=== PATIENT | female | born 1955 | race Caucasian/White ===

== ENCOUNTER 2016-09-11 14:59 | Emergency (ER) | payer MEDICARE, MEDICAID ==
[2016-09-11] MEDS ORDERED: ASPIRIN 81 MG TABLET, CHEWABLE PO ONE (15:27)
--- NOTE | 2016-09-11 15:29 | ER Document Report ---
ED Medical Screen (RME) - General Stated Complaint: LEG SWELLING Mode of Arrival: Wheelchair Information source: Patient Notes: c/o chronic left leg pain and swelling that worsened 3 days ago. She feels like she is retaining a lot of fluids. Associated symptoms dizziness, blurred vision with associated chest pain and left shoulder. PMHx includes HTN, DM, CVA. History of smoking. TRAVEL OUTSIDE OF THE [place] IN LAST 30 DAYS: No - Related Data Allergies/Adverse Reactions: morphine [Morphine] Allergy (Verified 09/11/16 15:24) Plastic tape Allergy (Uncoded 09/11/16 15:24) Past Medical History - Past Medical History Cardiac Medical History: Reports: Hx DVT, Hx Hypercholesterolemia, Hx Hypertension Denies: Hx Heart Attack Pulmonary Medical History: Reports: Hx Asthma, Hx Bronchitis, Hx COPD, Hx Pneumonia Denies: Hx Tuberculosis Neurological Medical History: Reports: Hx Cerebrovascular Accident - CVA 2012 L sided-weakness. Denies: Hx Seizures Endocrine Medical History: Reports: Hx Diabetes Mellitus Type 2 Renal/ Medical History: Reports: Hx Kidney Stones. Denies: Hx End Stage Renal Disease, Hx Peritoneal Dialysis Malignancy Medical History: Reports: Hx Ovarian Cancer Musculoskeltal Medical History: Denies Hx Arthritis, Reports Hx Fibromyalgia Psychiatric Medical History: Denies: Hx Depression Past Surgical History: Reports: Hx Hysterectomy, Hx Kidney (Renal Surgery), Hx Orthopedic Surgery - carpal tunnel, right medial nerve reconstruction, Hx Tubal Ligation. Denies: Hx Appendectomy, Hx Bowel Surgery, Hx Section, Hx Cholecystectomy, Hx Coronary Artery Bypass Graft, Hx Gastric Bypass Surgery, Hx Herniorrhaphy, Hx Mastectomy, Hx Pacemaker, Hx Tonsillectomy - Immunizations Hx Diphtheria, Pertussis, Tetanus Vaccination: Yes Physical Exam - Vital signs Vitals: Temp Pulse Resp BP 97.9 F 82 20 189/81 H 09/11/16 15:09/11/16 15:09/11/16 15:09 09/11/16 15:09 Course - Vital Signs Vital signs: Temp Pulse Resp BP Pulse Ox 97.9 F 82 20 189/81 H 09/11/16 15:09 09/11/16 15:09 09/11/16 15:09 09/11/16 15:09
[2016-09-11 15:51] LABS: ABSOLUTE EOSINOPHILS # (AUTO) 0.1 10^3/uL (0.0-0.6); ABSOLUTE LYMPHOCYTES (AUTO) 2.7 10^3/uL (0.5-4.7); ABSOLUTE MONOCYTES (AUTO) 0.5 10^3/uL (0.1-1.4); ABSOLUTE NEUT (AUTO) 4.5 10^3/uL (1.7-8.2); BASOPHILS % (AUTO) 0.5 % (0-2); EOSINOPHILS % (AUTO) 1.6 % (0-6); HEMATOCRIT 42.6 % (36.0-47.0); HEMOGLOBIN 14.4 g/dL (12.0-15.5); HGB HCT DIFFERENCE 0.6; LYMPHOCYTES % (AUTO) 34.1 % (13-45); MEAN CORPUSCULAR HEMOGLOBIN 32.9 pg (27.0-33.4); MEAN CORPUSCULAR HGB CONC 33.8 g/dL (32.0-36.0); MEAN CORPUSCULAR VOLUME 97 fl (80-97); MONOCYTES % (AUTO) 5.9 % (3-13); RED BLOOD COUNT 4.38 10^6/uL (3.72-5.28); RED CELL DISTRIBUTION WIDTH 14.3 % (11.5-14.0); SEGMENTED NEUTROPHILS % (AUTO) 57.9 % (42-78); WHITE BLOOD COUNT 7.8 10^3/uL (4.0-10.5)
[2016-09-11 16:09] LABS: ALANINE AMINOTRANSFERASE 41 U/L (9-52); ALBUMIN 3.7 g/dL (3.5-5.0); ALKALINE PHOSPHATASE 106 U/L (38-126); ANION GAP 9 (5-19); ASPARTATE AMINO TRANSFERASE 28 U/L (14-36); BILIRUBIN,TOTAL 0.4 mg/dL (0.2-1.3); BLOOD UREA NITROGEN 22 mg/dL (7-20); CARBON DIOXIDE 24 mmol/L (22-30); CHLORIDE 109 mmol/L (98-107); CREATININE RESULT 1.22 mg/dL (0.52-1.25); GLUCOSE 103 mg/dL (75-110); POTASSIUM 4.5 mmol/L (3.6-5.0); SODIUM 141.6 mmol/L (137-145); TOTAL PROTEIN 6.3 g/dL (6.3-8.2)
[2016-09-11 16:21] LABS: TROPONIN I 0.013 ng/mL
--- NOTE | 2016-09-11 19:38 | ER Document Report ---
ED General - General Chief Complaint: Leg Swelling Stated Complaint: LEG SWELLING Mode of Arrival: Wheelchair Notes: Patient is a 61-year-old female past medical history of ovarian cancer status post hysterectomy with associated chronic lymphadenopathy thereafter who presents with concerns of ongoing lower extremity edema and pain. States that this is unchanged from the past but that has been less responsive turgor normal approach of applying her SCDs at home. Not see her primary care doctor about her concerns. Describes the pain in the lower extremities being equal in both legs, constant burning. Nothing improves or worsens the pain. Denies any associated weakness, numbness, chest pain or shortness of breath. TRAVEL OUTSIDE OF THE [place] IN LAST 30 DAYS: No - Related Data Allergies/Adverse Reactions: morphine [Morphine] Allergy (Verified 09/11/16 15:24) Plastic tape Allergy (Uncoded 09/11/16 15:24) Past Medical History - General Information source: Patient - Social History Smoking Status: Current Every Day Smoker Chew tobacco use (# tins/day): No Frequency of alcohol use: None Drug Abuse: None Lives with: Spouse/Significant other Family History: Reviewed & Not Pertinent Patient has suicidal ideation: No Patient has homicidal ideation: No - Past Medical History Cardiac Medical History: Reports: Hx DVT, Hx Hypercholesterolemia, Hx Hypertension Denies: Hx Heart Attack Pulmonary Medical History: Reports: Hx Asthma, Hx Bronchitis, Hx COPD, Hx Pneumonia Denies: Hx Tuberculosis Neurological Medical History: Reports: Hx Cerebrovascular Accident - CVA 2012 L sided-weakness. Denies: Hx Seizures Endocrine Medical History: Reports: Hx Diabetes Mellitus Type 2 Renal/ Medical History: Reports: Hx Kidney Stones. Denies: Hx End Stage Renal Disease, Hx Peritoneal Dialysis Malignancy Medical History: Reports: Hx Ovarian Cancer Musculoskeltal Medical History: Denies Hx Arthritis, Reports Hx Fibromyalgia Psychiatric Medical History: Denies: Hx Depression Past Surgical History: Reports: Hx Hysterectomy, Hx Kidney (Renal Surgery), Hx Orthopedic Surgery - carpal tunnel, right medial nerve reconstruction, Hx Tubal Ligation. Denies: Hx Appendectomy, Hx Bowel Surgery, Hx Section, Hx Cholecystectomy, Hx Coronary Artery Bypass Graft, Hx Gastric Bypass Surgery, Hx Herniorrhaphy, Hx Mastectomy, Hx Pacemaker, Hx Tonsillectomy - Immunizations Hx Diphtheria, Pertussis, Tetanus Vaccination: Yes Hx Pneumococcal Vaccination: 03/25/12 Review of Systems - Review of Systems Notes: Constitutional: Negative for fever. HENT: Negative for sore throat. Eyes: Negative for visual changes. Cardiovascular: Negative for chest pain. Respiratory: Negative for shortness of breath. Gastrointestinal: Negative for abdominal pain, vomiting or diarrhea. Genitourinary: Negative for dysuria. Musculoskeletal: Negative for back pain. Positive for bilateral lower extremity edema and lymphedema Skin: Negative for rash. Neurological: Negative for headaches, weakness or numbness. 10 point ROS negative except as marked above and in HPI. Physical Exam - Vital signs Vitals: Temp Pulse Resp BP 97.9 F 82 20 189/81 H 09/11/16 15:09 09/11/16 15:09 09/11/16 15:09 09/11/16 15:09 Interpretation: Hypertensive Notes: PHYSICAL EXAMINATION: GENERAL: Well-appearing, well-nourished and in no acute distress. HEAD: Atraumatic, normocephalic. EYES: Pupils equal round and reactive to light, extraocular movements intact, sclera anicteric, conjunctiva are normal. ENT: nares patent, oropharynx clear without exudates. Moist mucous membranes. NECK: Normal range of motion, supple without lymphadenopathy LUNGS: Breath sounds clear to auscultation bilaterally and equal. No wheezes rales or rhonchi. HEART: Regular rate and rhythm without murmurs ABDOMEN: Soft, nontender, normoactive bowel sounds. No guarding, no rebound. No masses appreciated. EXTREMITIES: Normal range of motion, no pitting or edema. No cyanosis. NEUROLOGICAL: No focal neurological deficits. Moves all extremities spontaneously and on command. PSYCH: Normal mood, normal affect. SKIN: Warm, Dry, normal turgor, changes in bilateral lower extremities consistent with lymphedema Course - Re-evaluation Re-evalutation: 09/11/16 19:38 Patient presents with findings consistent with chronic lymphedema of the bilateral lower extremities. She does not have compression stockings at home. She does have SCDs however which she's been told she can only use one hour a day. I do not see a reason for this and have instructed her to begin using them as often is able to try to reduce the amount of swelling in the legs. Patient is otherwise well in appearance, vitals within exception of hypertension are within normal limits and this is patient's baseline. Her labs otherwise unremarkable. Chest x-ray was without evidence of pulmonary edema. I do not suspect any acute life-threatening pathology at this time based on exam and history and encouraged to follow closely with her primary care physician.At this time will discharge with return precautions and follow- up recommendations. Verbal discharge instructions given a the bedside and opportunity for questions given. Medication warnings reviewed. Patient is in agreement with this plan and has verbalized understanding of return precautions and the need for primary care follow-up in the next 24-72 hours. - Vital Signs Vital signs: Temp Pulse Resp BP Pulse Ox 97.7 F 80 18 171/76 H 97 09/11/16 20:22 09/11/16 20:22 09/11/16 20:22 09/11/16 20:22 09/11/16 20:22 - Laboratory Result Diagrams: 09/11/16 15:40 09/11/16 15:40 Laboratory results interpreted by me: 09/11/16 09/11/16 09/11/16 15:40 15:40 15:40 RDW 14.3 H Chloride 109 H BUN 22 H Est GFR ( Amer) 54 L Est GFR (Non-Af Amer) 45 L NT-Pro-B Natriuret Pep 1150 H - Diagnostic Test Radiology reviewed: Image reviewed, Reports reviewed Radiology results interpreted by me: 09/11/16 19:42 Chest x-ray: No acute infiltrate or pulmonary edema - EKG Interpretation by Me Additional EKG results interpreted by me: 09/11/16 19:42 Normal sinus rhythm. Rate 78. No ST elevations or depressions. QTC 438. Discharge - Discharge Clinical Impression: Lymphedema of both lower extremities Condition: Good Disposition: HOME, SELF-CARE Additional Instructions: Please begin using your compression device at home as often as you are able. Follow-up closely with you primary care physician the next 1-2 days. Return if you have shortness of breath, persistent vomiting, or greater than 101F, or any other symptoms that are concerning to you. Referrals: BECKI DIXON MD [Primary Care Provider] - Follow up as needed
[2016-09-11 20:25] VITALS: BP 171/76
--- NOTE | 2016-09-12 11:25 | EKG REPORT ---
SEVERITY:- NORMAL ECG - SINUS RHYTHM : Confirmed by: Gloria August 12-Sep-2016 11:24:38
== END 2016-09-11 20:30 | disposition home or self-care (01) ==
LOC: ER 14:59
DX: I89.0 Lymphedema, not elsewhere classified (principal); M79.89 Other specified soft tissue disorders; Z85.43 Personal history of malignant neoplasm of ovary; F17.210 Nicotine dependence, cigarettes, uncomplicated
CPT/HCPCS: 93005; 99284; 36415; 85025; 80053; 84484; 83880; 71010; 93010; A9270

== ENCOUNTER 2017-02-03 19:10 | Inpatient (IN) | payer MEDICARE, MEDICAID ==
[2017-02-03] MEDS ORDERED: NORMAL SALINE 1000 ML 500 ML IV ONE (19:40)
[2017-02-03] MEDS ORDERED: ALBUTEROL SULFATE 0.083% NEB 2.5 MG/3 ML AMPUL NEB ONE (19:40)
[2017-02-03] MEDS ORDERED: METHYLPREDNISOLONE INJ 125 MG/2 ML SDV IV ONE (19:40)
--- NOTE | 2017-02-03 19:43 | ER Document Report ---
ED General - General Stated Complaint: SHORTNESS OF BREATH Time Seen by Provider: 02/03/17 19:30 Notes: Patient is a 61-year-old female with past medical history of COPD but does not have a baseline oxygen requirement, no prior history of intubation or hospitalization for COPD who presents with 4 days of progressively worsening shortness of breath. She has been using her inhalers at home with no improvement. Any form of exertion worsens her symptoms. She has not seen a primary care doctor regarding today's concerns. She denies any associated fever , vomiting, chest pain or constitutional symptoms. TRAVEL OUTSIDE OF THE [place] IN LAST 30 DAYS: No - Related Data Allergies/Adverse Reactions: morphine [Morphine] Allergy (Verified 09/11/16 15:24) Plastic tape Allergy (Uncoded 09/11/16 15:24) Home Medications: Current Home Medications Amlodipine Besylate 5 mg PO DAILY 02/04/17 [History] Atorvastatin Calcium 40 mg PO DAILY 02/04/17 [History] Gabapentin [Gabapentin] 600 mg PO BID 02/04/17 [History] Hydroxyzine HCl 25 mg PO Q6 PRN 02/04/17 [History] Ibuprofen [Ibuprofen] 800 mg PO BID 02/04/17 [History] Pramipexole Di-HCl [Mirapex] 0.5 mg PO QHS 02/04/17 [History] Past Medical History - General Information source: Patient - Social History Smoking Status: Former Smoker Frequency of alcohol use: None Drug Abuse: None Lives with: Family Family History: Reviewed & Not Pertinent - Past Medical History Cardiac Medical History: Reports: Hx DVT, Hx Hypercholesterolemia, Hx Hypertension Denies: Hx Heart Attack Pulmonary Medical History: Reports: Hx Asthma, Hx Bronchitis, Hx COPD, Hx Pneumonia Denies: Hx Tuberculosis Neurological Medical History: Reports: Hx Cerebrovascular Accident - CVA 2011 L sided-weakness. Denies: Hx Seizures Endocrine Medical History: Reports: Hx Diabetes Mellitus Type 2 Renal/ Medical History: Reports: Hx Kidney Stones. Denies: Hx End Stage Renal Disease, Hx Peritoneal Dialysis Malignancy Medical History: Reports: Hx Ovarian Cancer Musculoskeltal Medical History: Denies Hx Arthritis, Reports Hx Fibromyalgia Psychiatric Medical History: Denies: Hx Depression Past Surgical History: Reports: Hx Hysterectomy, Hx Kidney (Renal Surgery), Hx Orthopedic Surgery - carpal tunnel, right medial nerve reconstruction, Hx Tubal Ligation. Denies: Hx Appendectomy, Hx Bowel Surgery, Hx Section, Hx Cholecystectomy, Hx Coronary Artery Bypass Graft, Hx Gastric Bypass Surgery, Hx Herniorrhaphy, Hx Mastectomy, Hx Pacemaker, Hx Tonsillectomy - Immunizations Hx Diphtheria, Pertussis, Tetanus Vaccination: Yes Hx Pneumococcal Vaccination: 03/25/12 Review of Systems - Review of Systems Notes: Constitutional: Negative for fever. HENT: Negative for sore throat. Eyes: Negative for visual changes. Cardiovascular: Negative for chest pain. Respiratory: Positive for shortness of breath. Gastrointestinal: Negative for abdominal pain, vomiting or diarrhea. Genitourinary: Negative for dysuria. Musculoskeletal: Negative for back pain. Skin: Negative for rash. Neurological: Negative for headaches, weakness or numbness. 10 point ROS negative except as marked above and in HPI. Physical Exam - Vital signs Vitals: Resp Pulse Ox 29 H 100 02/03/17 19:23 02/03/17 19:23 Interpretation: Tachycardic, Tachypneic Notes: PHYSICAL EXAMINATION: GENERAL: Appears somewhat ill, in moderate to severe respiratory distress with tachypnea initial respiratory rate of 34 breaths per minute HEAD: Atraumatic, normocephalic. EYES: Pupils equal round and reactive to light, extraocular movements intact, sclera anicteric, conjunctiva are normal. ENT: nares patent, oropharynx clear without exudates. Dry mucous membranes. NECK: Normal range of motion, supple without lymphadenopathy LUNGS: Poor air movement in all lung larios particularly at the bases bilaterally. Diffuse wheezing in the expiratory phase with prolonged expiratory phase. HEART: Regular tachycardia without murmurs ABDOMEN: Soft, nontender, normoactive bowel sounds. No guarding, no rebound. No masses appreciated. EXTREMITIES: Normal range of motion, no pitting or edema. No cyanosis. NEUROLOGICAL: No focal neurological deficits. Moves all extremities spontaneously and on command. PSYCH: Normal mood, normal affect. SKIN: Warm, Dry, normal turgor, no rashes or lesions noted. Course - Re-evaluation Re-evalutation: 02/03/17 19:42 Patient presents in moderate respiratory distress, tachypneic, rates 28-32, speaking 3 word sentences despite receiving 2 albuterol and Atrovent treatments prior to arrival. She has poor air movement in all lung larios with a prolonged expiratory phase and a severe expiratory wheeze. Immediately upon my assessment patient has been started on continuous albuterol nebulizers, IV access will be established. Solumedrol and 2 g of magnesium will be administered. Patient will require frequent reassessments as she is high risk for respiratory decompensation 02/03/17 21:34 Patient became more tachycardic on albuterol, attempted to get up to the bathroom and became severely tachypneic in the 40s, tachycardic into the 140s, continues appear severely dyspneic on assessment. She will be transitioned to BiPAP at this time. She will require admission to the hospital. Troponin at an indeterminate level, I do not suspect ACS and her EKG is noted to be normal. 02/03/17 21:46 Patient's work of breathing on BiPAP is now much improved. I discussed this case with Dr. Marley who will admit. - Vital Signs Vital signs: Temp Pulse Resp BP Pulse Ox 97.8 F 97 22 H 115/63 97 02/04/17 01:08 02/04/17 02:20 02/04/17 02:20 02/04/17 01:08 02/04/17 01:08 - Laboratory Result Diagrams: 02/03/17 20:30 02/03/17 20:30 Laboratory results interpreted by me: 02/03/17 02/03/17 02/03/17 20:30 20:30 20:30 RBC 3.70 L MCV 100 H RDW 14.4 H Plt Count 149 L Chloride 110 H Est GFR (Non-Af Amer) 51 L Glucose 119 H NT-Pro-B Natriuret Pep 1770 H - Diagnostic Test Radiology reviewed: Image reviewed, Reports reviewed Radiology results interpreted by me: 02/03/17 21:34 Chest x-ray: No acute pneumothorax or infiltrate - EKG Interpretation by Me Additional EKG results interpreted by me: 02/03/17 21:35 Sinus tachycardia. Rate 109. No ST elevations or depressions. QTC is 491. Critical Care Note - Critical Care Note Total time excluding time spent on procedures (mins): 40 Comments: Critical care time spent obtaining history from patient or surrogate, discussions with consultants, development of treatment plan with patient or surrogate, evaluation of patient's response to treatment, examination of patient , ordering and performing treatments and interventions, ordering and review of laboratory studies, re-evaluation of patient's condition, ordering and review of radiographic studies and review of old charts Discharge - Discharge Clinical Impression: Respiratory distress, COPD exacerbation Condition: Fair Disposition: ADMITTED INPATIENT Admitting Provider: Margaret Christy Donell Unit Admitted: Telemetry
--- NOTE | 2017-02-03 19:45 | RADIOLOGY REPORT (SQ) ---
EXAM DESCRIPTION: CHEST SINGLE VIEW COMPLETED DATE/TIME: 02/03/2017 7:36 pm REASON FOR STUDY: bed 16 sob COMPARISON: 09/11/2016. EXAM PARAMETERS: NUMBER OF VIEWS: One view. TECHNIQUE: Single frontal radiographic view of the chest acquired. RADIATION DOSE: NA LIMITATIONS: None. FINDINGS: LUNGS AND PLEURA: No opacities, masses or pneumothorax. No pleural effusion. MEDIASTINUM AND HILAR STRUCTURES: No masses. Contour normal. HEART AND VASCULAR STRUCTURES: Heart normal in size. Normal vasculature. BONES: No acute findings. HARDWARE: Vascular access port. OTHER: No other significant finding. IMPRESSION: NO ACUTE RADIOGRAPHIC FINDING IN THE CHEST. TECHNICAL DOCUMENTATION: JOB ID: [id number]
[2017-02-03] MEDS: MAGNESIUM SULFATE/D5W 100 ML IV SCH ×2 (20:29→20:37)
[2017-02-03 20:49] LABS: VENOUS BLOOD BASE EXCESS -2.7 mmol/L; VENOUS BLOOD HCO3 22.6 mmol/L (20-32); VENOUS BLOOD PCO2 41.2 mmHg (35-63); VENOUS BLOOD PH 7.36 (7.30-7.42)
[2017-02-03 20:50] LABS: ABSOLUTE LYMPHOCYTES (AUTO) 1.1 10^3/uL (0.5-4.7); ABSOLUTE MONOCYTES (AUTO) 0.4 10^3/uL (0.1-1.4); ABSOLUTE NEUT (AUTO) 5.1 10^3/uL (1.7-8.2); BASOPHILS % (AUTO) 0.5 % (0-2); EOSINOPHILS % (AUTO) 0.5 % (0-6); HEMATOCRIT 37.2 % (36.0-47.0); HEMOGLOBIN 12.2 g/dL (12.0-15.5); HGB HCT DIFFERENCE -0.6; LYMPHOCYTES % (AUTO) 16.5 % (13-45); MEAN CORPUSCULAR HGB CONC 32.9 g/dL (32.0-36.0); MEAN CORPUSCULAR VOLUME 100 fl (80-97); MONOCYTES % (AUTO) 6.4 % (3-13); RED CELL DISTRIBUTION WIDTH 14.4 % (11.5-14.0); SEGMENTED NEUTROPHILS % (AUTO) 76.1 % (42-78); WHITE BLOOD COUNT 6.7 10^3/uL (4.0-10.5)
[2017-02-03 21:07] LABS: ANION GAP 8 (5-19); BLOOD UREA NITROGEN 17 mg/dL (7-20); CALCIUM 8.9 mg/dL (8.4-10.2); CARBON DIOXIDE 22 mmol/L (22-30); CHLORIDE 110 mmol/L (98-107); CREATININE RESULT 1.09 mg/dL (0.52-1.25); GLUCOSE 119 mg/dL (75-110); POTASSIUM 3.7 mmol/L (3.6-5.0); SODIUM 140.2 mmol/L (137-145)
[2017-02-03] MEDS ORDERED: ACETAMINOPHEN 325 MG TABLET PO ONE (21:07)
[2017-02-03] MEDS ORDERED: ACETAMINOPHEN 325 MG TABLET PO PRN (21:49)
[2017-02-03] MEDS ORDERED: MAG HYDROX/AL HYDROX/SIMETH SUSP 30 ML UDCUP PO PRN (21:49)
[2017-02-03] MEDS ORDERED: DEXTROSE 40% GEL 15 GM TUBE PO PRN ×2 (21:49)
[2017-02-03] MEDS ORDERED: GLUCAGON,HUMAN RECOMB 1 MG INJ IM PRN (21:49)
[2017-02-03] MEDS ORDERED: DEXTROSE 50%-WATER 25 GM/50 ML DISP.SYRIN IV PRN ×2 (21:49)
[2017-02-03 22:14] LABS: MAGNESIUM 1.7 mg/dL (1.6-2.3); PHOSPHORUS 2.6 mg/dL (2.5-4.5)
[2017-02-03] MEDS ORDERED: HEPARIN SOD (PORCINE) 5,000 UNIT/ML 1 ML SYRINGE SUBCUT ONE (22:30)
--- NOTE | 2017-02-03 22:39 | EKG REPORT ---
SEVERITY:- ABNORMAL ECG - SINUS TACHYCARDIA WITH IRREGULAR RATE 103-155 NONSPECIFIC REPOL ABNORMALITY, DIFFUSE LEADS BORDERLINE PROLONGED QT INTERVAL : Confirmed by: Gloria August 03-Feb-2017 22:39:06
[2017-02-03] MEDS ORDERED: CHLORPHENIRAMINE MALEATE 4 MG TABLET PO ONE (23:05)
[2017-02-03] MEDS ORDERED: CHLORPHENIRAMINE MALEATE 4 MG TABLET PO PRN (23:05)
[2017-02-03] MEDS ORDERED: POTASSIUM CHLORIDE 10 MEQ TABLET.SA PO ONE (23:45)
[2017-02-03] MEDS ORDERED: FUROSEMIDE INJ/PF 40 MG/4 ML SDV IV ONE (23:45)
[2017-02-04] MEDS: INSULIN LISPRO 100 UNIT/ML 3 ML VIAL SUBCUT PRN (00:42)
--- NOTE | 2017-02-04 00:55 | PDOC H&P ---
History of Present Illness Admission Date/PCP: 02/03/17 21:50 BECKI DIXON MD Patient complains of: Shortness of breath History of Present Illness: WILNER CONSTANTINO is a 61 year old female with a past medical history of COPD, tobacco dependence, diabetes, opiate dependent chronic pain, hypertension and CVA without residual deficits who presents after 4 days of worsening shortness of breath with nonproductive cough and rhinorrhea. Denying fever chest pain nausea vomiting in the emergency room she was found to have tachypnea and rhonchi on exam she is referred to the hospitalist for admission. She denies recent changes in her medication Past Medical History Cardiac Medical History: Reports: DVT, Hyperlipidema, Hypertension Denies: Myocardial Infarction Pulmonary Medical History: Reports: Asthma, Bronchitis, Chronic Obstructive Pulmonary Disease (COPD), Pneumonia Denies: Tuberculosis Neurological Medical History: Denies: Seizures Endocrine Medical History: Reports: Diabetes Mellitus Type 2 Renal/ Medical History: Denies: End Stage Renal Disease Malignancy Medical History: Reports: Ovarian Cancer Musculoskeltal Medical History: Reports: Fibromyalgia Denies: Arthritis Psychiatric Medical History: Denies: Depression Hematology: Denies: Anemia Past Surgical History Past Surgical History: Reports: Hysterectomy, Orthopedic Surgery - carpal tunnel , right medial nerve reconstruction, Tubal Ligation Denies: Appendectomy, Section, Cholecystectomy, Coronary Artery Bypass Graft, Gastric Bypass Surgery, Herniorrhaphy, Mastectomy, Pacemaker, Tonsillectomy Social History Information Source: Patient, [facility] Smoking Status: Current Every Day Smoker Frequency of Alcohol Use: None Hx Recreational Drug Use: No Hx Prescription Drug Abuse: No - Advance Directive Resuscitation Status: Full Code Family History Family History: COPD Parental Family History Reviewed: Yes Children Family History Reviewed: Yes Sibling(s) Family History Reviewed.: Yes Medication/Allergy Home Medications: Fluticasone/Salmeterol [Advair 250-50 Diskus 28 dose] 1 inh IH Q12H 08/23/12 Metformin HCl [Glucophage 500 mg Tablet] 500 mg PO BID 08/23/12 Oxycodone HCl/Acetaminophen [Percocet 5-325 mg Tablet] 1 tab PO Q4HP PRN Albuterol Sulfate [Proair HFA] 1 puff IH PRN PRN 09/27/13 Lisinopril/Hydrochlorothiazide [Lisinopril-Hctz 20-25 mg Tab] 1 tab PO DAILYP PRN 09/27/13 Methadone HCl 1 tab PO TID 09/27/13 Omeprazole 20 mg PO DAILY 09/27/13 Zolpidem Tartrate [Ambien 10 mg Tablet] 1 tab PO HSP PRN 09/27/13 Levofloxacin [Levaquin 750 mg Tablet] 750 mg PO DAILY #5 tablet 10/02/13 Prednisone 10 mg PO DAILY #0 tablet 10/02/13 Allergies/Adverse Reactions: morphine [Morphine] Allergy (Verified 09/11/16 15:24) Plastic tape Allergy (Uncoded 09/11/16 15:24) Review of Systems Constitutional: PRESENT: fatigue, weakness. ABSENT: fever(s), weight gain, weight loss Eyes: ABSENT: visual disturbances Ears: ABSENT: hearing changes Nose, Mouth, and Throat: PRESENT: other - Rhinorrhea Cardiovascular: PRESENT: dyspnea on exertion, edema, orthropnea. ABSENT: chest pain, palpitations Respiratory: PRESENT: cough, dyspnea. ABSENT: hemoptysis Gastrointestinal: ABSENT: abdominal pain, constipation, diarrhea, hematemesis, hematochezia, nausea, vomiting Genitourinary: ABSENT: dysuria, hematuria Musculoskeletal: PRESENT: as per HPI. ABSENT: deformity, joint swelling Integumentary: PRESENT: other - Lower extremity venous stasis Neurological: ABSENT: abnormal gait, abnormal speech, confusion, dizziness, focal weakness, syncope Psychiatric: ABSENT: anxiety, depression, homidical ideation, suicidal ideation Endocrine: ABSENT: cold intolerance, heat intolerance, polydipsia, polyuria Hematologic/Lymphatic: ABSENT: easy bleeding, easy bruising Physical Exam Vital Signs: Temp Pulse Resp BP Pulse Ox 20 120/72 100 02/03/17 23:58 02/03/17 23:02 02/03/17 23:58 General appearance: PRESENT: cooperative, obese, severe distress Head exam: PRESENT: atraumatic, normocephalic Eye exam: PRESENT: conjunctiva pink, EOMI, PERRLA. ABSENT: scleral icterus Ear exam: PRESENT: normal external ear exam Mouth exam: PRESENT: moist, tongue midline Neck exam: ABSENT: carotid bruit, JVD, lymphadenopathy, thyromegaly Respiratory exam: PRESENT: accessory muscle use, crackles, decreased breath sounds, prolonged expiratory phas, rales, retraction, rhonchi, symmetrical, tachypnea. ABSENT: chest wall tenderness, clear to auscultation jovan Cardiovascular exam: PRESENT: gallop, RRR, +S1, +S2, systolic murmur, tachycardia Pulses: PRESENT: normal dorsalis pedis pul Vascular exam: PRESENT: normal capillary refill GI/Abdominal exam: PRESENT: normal bowel sounds, soft. ABSENT: distended, guarding, mass, organolmegaly, rebound, tenderness Rectal exam: PRESENT: deferred Extremities exam: PRESENT: tenderness, +2 edema Neurological exam: PRESENT: alert, awake, oriented to person, oriented to place , oriented to time, oriented to situation, CN II-XII grossly intact. ABSENT: motor sensory deficit Psychiatric exam: PRESENT: appropriate affect, normal mood. ABSENT: homicidal ideation, suicidal ideation Skin exam: PRESENT: dry, erythema, intact. ABSENT: abrasion, cyanosis, jaundice Results Impressions: Chest X-Ray 02/03/17 19:14 IMPRESSION: NO ACUTE RADIOGRAPHIC FINDING IN THE CHEST. Assessment & Plan - Diagnosis (1) Pneumonia Is this a current diagnosis for this admission?: YesPlan: Likely secondary to upper URI or allergic sinusitis. Chlorpheniramine, Flonase , empiric antibiotics, albuterol and Atrovent with flutter valve follow-up CBC (2) Congestive heart failure Is this a current diagnosis for this admission?: YesPlan: Secondary to respiratory decompensation. Optimize oxygenation blood pressure and heart rate, BiPAP and follow-up echocardiogram (3) Venous stasis Is this a current diagnosis for this admission?: YesPlan: ALTON stockings and avoiding lower extremity dependency (4) Diabetes Plan: Hold metformin obtain A1c, sliding scale insulin (5) COPD exacerbation Is this a current diagnosis for this admission?: YesPlan: Flutter valve and tobacco cessation counseling (6) Tobacco abuse Is this a current diagnosis for this admission?: YesPlan: Tobacco Dependence patient received tobacco cessation counseling and offered nicotine replacement options - Time Time Spent: 50 to 70 Minutes - Inpatient Certification Medical Necessity: Need Close Monitoring Due to Risk of Patient Decompensation
[2017-02-04] MEDS ORDERED: NICOTINE 7 MG/24 HR PATCH.TD24 TD ONE (01:45)
[2017-02-04] MEDS ORDERED: LEVOFLOXACIN 750 MG/D5W RTU 750 MG/150 ML RTUPB IV ONE (02:00)
[2017-02-04] MEDS: IPRATROPIUM/ALBUTEROL 0.5-2.5 MG/3 ML AMPUL NEB SCH ×4 (02:18→19:39)
[2017-02-04] MEDS ORDERED: METHADONE HCL 10 MG TABLET PO ONE (03:00)
[2017-02-04] MEDS: HEPARIN SOD (PORCINE) 5,000 UNIT/ML 1 ML SYRINGE SUBCUT SCH ×2 (05:31→14:04)
[2017-02-04 05:37] LABS: ANION GAP 11 (5-19); BLOOD UREA NITROGEN 17 mg/dL (7-20); CALCIUM 8.8 mg/dL (8.4-10.2); CARBON DIOXIDE 20 mmol/L (22-30); CHLORIDE 109 mmol/L (98-107); CREATININE RESULT 1.14 mg/dL (0.52-1.25); GLUCOSE 271 mg/dL (75-110); POTASSIUM 4.5 mmol/L (3.6-5.0)
[2017-02-04 05:58] LABS: HEMATOCRIT 36.7 % (36.0-47.0); HEMOGLOBIN 12.2 g/dL (12.0-15.5); HGB HCT DIFFERENCE -0.1; MEAN CORPUSCULAR HEMOGLOBIN 33.4 pg (27.0-33.4); MEAN CORPUSCULAR HGB CONC 33.1 g/dL (32.0-36.0); MEAN CORPUSCULAR VOLUME 101 fl (80-97); RED BLOOD COUNT 3.63 10^6/uL (3.72-5.28); RED CELL DISTRIBUTION WIDTH 14.7 % (11.5-14.0); WHITE BLOOD COUNT 5.9 10^3/uL (4.0-10.5)
[2017-02-04 06:00] LABS: BASOPHILS % (MANUAL) 0 % (0-2); EOSINOPHILS % (MANUAL) 0 % (0-6); LYMPHOCYTES % (MANUAL) 4 % (13-45); TOTAL CELLS COUNTED 100
[2017-02-04 06:01] LABS: ANISOCYTOSIS SLIGHT
[2017-02-04] MEDS: DOCUSATE SODIUM 100 MG CAPSULE PO SCH ×2 (09:25→17:50)
[2017-02-04] MEDS: FLUTICASONE NASAL SPRAY 50 MCG/SPRY 120 SPRAY/16 GM NASL SCH ×2 (09:26→21:22)
[2017-02-04] MEDS: NICOTINE 7 MG/24 HR PATCH.TD24 TD SCH (09:26)
[2017-02-04] MEDS: METHADONE HCL 10 MG TABLET PO SCH ×2 (09:26→17:50)
[2017-02-04] MEDS ORDERED: POTASSIUM CHLORIDE 10 MEQ TABLET.SA PO SCH (10:00)
[2017-02-04] MEDS: OXYCODONE-ACETAMINOPHEN 5-325 MG TABLET PO PRN ×3 (11:28→21:47)
--- NOTE | 2017-02-04 13:15 | PDOC PROGRESS REPORT ---
Subjective Progress Note for:: 02/04/17 Subjective:: reason for visit: f/u COPD exac, poss heart failure hospital course: per other's notes - "74-year-old male was in [place] visiting relatives fell down the steps and subsequently drove back home but the pain was too intense he presented to the emergency room where he subsequently had a CT that showed fractured ribs as well as a 19 mm lung nodule in the left upper lobe. He denies shortness of breath prior to admission. He has had no history of chronic lung disease as a child or adolescent. He admits to exposure to passive smoke as a child as well as an adult. 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 He currently has no pets and he denies any recent travel except to his friends in [place]. He denies chest pain. He states that he has had morphine for his rib pain, which helps but makes him sleepy." states she feels better and would like to come off BiPAP if possible. she denies chest pain, palpitations, n/v/d, fevers/chills but still has wheezing and breathlessness with minimal exertion. ROS: as above, all systems reviewed, remaining systems negative. Physical Exam Vital Signs: Temp Pulse Resp BP Pulse Ox 97.8 F 97 22 H 133/60 H 97 02/04/17 11:51 02/04/17 11:51 02/04/17 11:51 02/04/17 11:51 02/04/17 11:58 Intake & Output 02/03/17 02/04/17 02/05/17 06:59 06:59 06:59 Intake Total 300 Balance 300 Weight 109.9 kg General appearance: PRESENT: no acute distress, obese, well-developed, well- nourished Head exam: PRESENT: atraumatic, normocephalic Eye exam: ABSENT: conjunctival injection, scleral icterus Neck exam: ABSENT: full ROM Respiratory exam: PRESENT: accessory muscle use, rhonchi, wheezes Cardiovascular exam: PRESENT: RRR. ABSENT: systolic murmur GI/Abdominal exam: PRESENT: normal bowel sounds, soft. ABSENT: tenderness Extremities exam: PRESENT: pedal edema - brawny, woody edema to the BLEs. ABSENT: calf tenderness Musculoskeletal exam: PRESENT: ambulatory, normal inspection Neurological exam: PRESENT: alert, awake, oriented to person, oriented to place Psychiatric exam: PRESENT: appropriate affect, normal mood Skin exam: PRESENT: warm. ABSENT: rash Results Laboratory Results: 02/04/17 04:50 02/04/17 04:50 02/04/17 02/04/17 04:50 04:50 WBC 5.9 RBC 3.63 L Hgb 12.2 Hct 36.7 MCV 101 H MCH 33.4 MCHC 33.1 RDW 14.7 H Plt Count 153 Seg Neutrophils % Not Reportable Lymphocytes % Not Reportable Monocytes % Not Reportable Eosinophils % Not Reportable Basophils % Not Reportable Absolute Neutrophils Not Reportable Absolute Lymphocytes Not Reportable Absolute Monocytes Not Reportable Absolute Eosinophils Not Reportable Absolute Basophils Not Reportable Sodium 140.0 Potassium 4.5 Chloride 109 H Carbon Dioxide 20 L Anion Gap 11 BUN 17 Creatinine 1.14 Est GFR ( Amer) 58 L Est GFR (Non-Af Amer) 48 L Glucose 271 H Calcium 8.8 Impressions: Chest X-Ray 02/03/17 19:14 IMPRESSION: NO ACUTE RADIOGRAPHIC FINDING IN THE CHEST. Status: Image reviewed by me - agree with rads Assessment & Plan - Diagnosis (1) Acute bacterial bronchitis Is this a current diagnosis for this admission?: YesPlan: improved but not back to baseline; continue abx, nebs and supplemental O2 (2) COPD exacerbation Is this a current diagnosis for this admission?: YesPlan: Improved but not back to baseline; continue systemic steroids (3) Congestive heart failure Qualifiers: Congestive heart failure type: unspecified congestive heart failure type Congestive heart failure chronicity: unspecified congestive heart failure chronicity Qualified Code(s): I50.9 - Heart failure, unspecified Is this a current diagnosis for this admission?: YesPlan: not clear this is pathologic process here though her BNP is elevated, she really doesn't show signs of failure beyond chronic venous swelling of her legs. f/u echo ordered (4) Diabetes Qualifiers: Diabetes mellitus type: type 2 Diabetes mellitus complication status: with unspecified complications Diabetes mellitus laborer marine terminal insulin use: without laborer marine terminal use Qualified Code(s): E11.8 - Type 2 diabetes mellitus with unspecified complications Is this a current diagnosis for this admission?: YesPlan: will likely worsen with systemic steroids (5) Tobacco abuse Is this a current diagnosis for this admission?: Yes (6) Venous stasis Is this a current diagnosis for this admission?: Yes (7) Chronic narcotic dependence Is this a current diagnosis for this admission?: YesPlan: stable; continue methadone and prn meds - Time Time Spent with patient: 35 or more minutes
[2017-02-04] MEDS: METHYLPREDNISOLONE INJ 40 MG/1 ML SDV IV SCH ×2 (14:04→21:22)
--- NOTE | 2017-02-04 15:41 | XCELERA REPORT ---
[address] [address] Transthoracic Echocardiogram Report Name: WILNER CONSTANTINO Age: 61 yrs Gender: Female : 1955 Patient Status: Inpatient Patient Location: 5\S\527\S\A Study Date: 02/04/2017 10:34 AM Height: 65 in Weight: 242 lb BSA: 2.1 m2 Procedure: A two-dimensional transthoracic echocardiogram with color flow and Doppler was performed. Study Quality: Fair. Reason For Study: SYSTOLIC MURMUR History: SYSTOLIC MURMUR. Ordering Physician: FLAVIA ESCALANTE Performed By: More Byers Interpretation Summary There is normal left ventricular wall thickness. The left ventricle is mildly dilated. LV EF is 60% Left ventricular systolic function is normal. Doppler measurements suggest impaired left ventricular relaxation, which is associated with grade I/IV or mild diastolic dysfunction LV apex is akinetic and possibly mildly aneurysmal.There is high suspicion for a LV apical clot. There is no ventricular septal defect visualized. The right atrium is normal. The left and right artia are mildly dilated The interatrial septum is intact with no evidence for an atrial septal defect. There is no evidence of mitral valve prolapse. There is no mitral valve stenosis. There is a trace amount of mitral regurgitation There is no aortic valve stenosis There is no LVOT obstruction. No aortic regurgitation is present. There is no tricuspid stenosis. There is a trace to mild amount of tricuspid regurgitation There is mild pulmonary hypertension by echo RVSP is 42 mm of Hg , with RA mean of 5 to 10. There is no pericardial effusion. MMode/2D Measurements \T\ Calculations RVDd: 3.2 cm LVIDd: 6.1 cm FS: 29.4 % Ao root diam: 2.9 cm IVSd: 0.97 cm LVIDs: 4.3 cm EDV(Teich): 186.3 ml LVPWd: 1.1 cm ESV(Teich): 83.0 ml Ao root area: 6.5 cm2 EF(Teich): 55.5 % Doppler Measurements \T\ Calculations MV E max hernán: MV dec slope: Ao V2 max: LV V1 max P.8 cm/sec 175.0 cm/sec 9.6 mmHg MV A max hernán: 722.7 cm/sec2 Ao max PG: LV V1 max: 118.0 cm/sec MV dec time: 12.3 mmHg 154.8 cm/sec MV E/A: 0.93 0.15 sec PA V2 max: TR max hernán: 146.5 cm/sec 294.3 cm/sec PA max P.6 mmHgTR max P.7 mmHg Left Ventricle There is normal left ventricular wall thickness. The left ventricle is mildly dilated. LV EF is 60%. Left ventricular systolic function is normal. Doppler measurements suggest impaired left ventricular relaxation, which is associated with grade I/IV or mild diastolic dysfunction. LV apex is akinetic and possibly mildly aneurysmal.There is high suspicion for a LV apical clot. There is no ventricular septal defect visualized. Right Ventricle The right ventricle is grossly normal size. Atria The right atrium is normal. The left and right artia are mildly dilated. The interatrial septum is intact with no evidence for an atrial septal defect. Mitral Valve There is no evidence of mitral valve prolapse. There is no vegetation seen on the mitral valve. There is no mitral valve stenosis. There is a trace amount of mitral regurgitation. Aortic Valve There is no aortic valvular vegetation. There is no aortic valve stenosis. There is no LVOT obstruction. No aortic regurgitation is present. Tricuspid Valve There is no tricuspid stenosis. There is a trace to mild amount of tricuspid regurgitation. There is mild pulmonary hypertension by echo. RVSP is 42 mm of Hg , with RA mean of 5 to 10. Pulmonic Valve There is no pulmonic valvular stenosis. There is no pulmonic valvular regurgitation. Great Vessels The aortic root is normal size. Effusions There is no pericardial effusion. : FLAVIA ESCALANTE > Joyce Hare
[2017-02-04] MEDS: LEVOFLOXACIN 750 MG/D5W RTU 750 MG/150 ML RTUPB IV SCH (21:29)
[2017-02-04] MEDS: ENOXAPARIN SODIUM INJ 40 MG/0.4 ML DISP.SYRIN SUBCUT SCH (21:31)
[2017-02-05] MEDS: METHADONE HCL 10 MG TABLET PO SCH ×3 (01:17→17:35)
[2017-02-05] MEDS: IPRATROPIUM/ALBUTEROL 0.5-2.5 MG/3 ML AMPUL NEB SCH ×2 (02:00→08:20)
[2017-02-05 04:55] LABS: HEMATOCRIT 39.9 % (36.0-47.0); HGB HCT DIFFERENCE -0.9; MEAN CORPUSCULAR HGB CONC 32.6 g/dL (32.0-36.0); MEAN CORPUSCULAR VOLUME 101 fl (80-97); RED BLOOD COUNT 3.94 10^6/uL (3.72-5.28); RED CELL DISTRIBUTION WIDTH 14.6 % (11.5-14.0); WHITE BLOOD COUNT 10.7 10^3/uL (4.0-10.5)
[2017-02-05 05:23] LABS: ANION GAP 8 (5-19); BLOOD UREA NITROGEN 24 mg/dL (7-20); CALCIUM 9.8 mg/dL (8.4-10.2); CARBON DIOXIDE 24 mmol/L (22-30); CHLORIDE 109 mmol/L (98-107); CREATININE RESULT 1.02 mg/dL (0.52-1.25); GLUCOSE 140 mg/dL (75-110); SODIUM 141.1 mmol/L (137-145)
[2017-02-05 05:26] LABS: POTASSIUM 5.6 mmol/L (3.6-5.0)
[2017-02-05] MEDS: METHYLPREDNISOLONE INJ 40 MG/1 ML SDV IV SCH ×3 (06:06→23:17)
[2017-02-05] MEDS: DOCUSATE SODIUM 100 MG CAPSULE PO SCH ×2 (09:20→17:35)
[2017-02-05] MEDS: ENOXAPARIN SODIUM INJ 40 MG/0.4 ML DISP.SYRIN SUBCUT SCH ×2 (09:20→23:15)
[2017-02-05] MEDS: NICOTINE 7 MG/24 HR PATCH.TD24 TD SCH (09:20)
[2017-02-05] MEDS: FLUTICASONE NASAL SPRAY 50 MCG/SPRY 120 SPRAY/16 GM NASL SCH ×2 (09:21→23:14)
[2017-02-05] MEDS ORDERED: BISACODYL 10 MG SUPP.RECT PR ONE (09:30)
[2017-02-05 09:37] LABS: APPEARANCE,URINE CLEAR; BILIRUBIN,URINE NEGATIVE (NEGATIVE); GLUCOSE, URINE NEGATIVE (NEGATIVE); KETONES,URINE NEGATIVE (NEGATIVE); LEUKOCYTE ESTERASE,URINE NEGATIVE (NEGATIVE); NITRITE,URINE NEGATIVE (NEGATIVE); PROTEIN,URINE 30 mg/dL (NEGATIVE); URINE SPECIFIC GRAVITY 1.013; UROBILINOGEN,URINE NEGATIVE mg/dL (<2.0)
[2017-02-05 10:04] LABS: PROTHROMBIN TIME 12.9 SEC (11.4-15.4)
--- NOTE | 2017-02-05 11:21 | PDOC PROGRESS REPORT ---
Subjective Progress Note for:: 02/05/17 Subjective:: reason for visit: f/u COPD exac, poss heart failure hospital course: per other's notes - "74-year-old male was in [place] visiting relatives fell down the steps and subsequently drove back home but the pain was too intense he presented to the emergency room where he subsequently had a CT that showed fractured ribs as well as a 19 mm lung nodule in the left upper lobe. He denies shortness of breath prior to admission. He has had no history of chronic lung disease as a child or adolescent. He admits to exposure to passive smoke as a child as well as an adult. 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 He currently has no pets and he denies any recent travel except to his friends in [place]. He denies chest pain. He states that he has had morphine for his rib pain, which helps but makes him sleepy." echo report now available and show apical aneurysm and apical clot in an akinetic apical segment. she has hx of DVT in her youth for reasons she is unaware of, previously treated with coumadin but none recently. she is undergoing care at [facility] for ovarian cancer completing high dose chemo earlier this year. I discussed with Dr Delgado the above findings. She was started on anticoagulation and given her hx and current renal function, will bridge with lovenox 1 mg/kg and start coumadin today. This likely accounts for much of her breathlessness. That being said, she remains a bit bronchospastic and will continue treatment as before for other underlying conditions. states she feels better and has come off BiPAP, in fact far too anxious to tolerate at all last night. she denies chest pain, palpitations, n/v/d, fevers/ chills but still has wheezing and breathlessness with minimal exertion. she is afraid to go to sleep thinking she might not wake up again. she is very anxious and maybe a bit manic at this point, unclear if related to the steroids started yesterday though her daughter indicates she has underlying anxiety issues. ROS: as above, all systems reviewed, remaining systems negative. Physical Exam Vital Signs: Temp Pulse Resp BP Pulse Ox 97.5 F 91 22 H 139/76 H 100 02/05/17 07:34 02/05/17 08:20 02/05/17 08:20 02/05/17 07:34 02/05/17 07:34 Intake & Output 02/04/17 02/05/17 02/06/17 06:59 06:59 06:59 Intake Total 300 1140 Balance 300 1140 Weight 109.9 kg 109.8 kg General appearance: PRESENT: mild emotional distress and its obvious she has slept overnight, obese, well-developed, well-nourished Head exam: PRESENT: atraumatic, normocephalic Eye exam: conjunctival injection, NO scleral icterus Neck exam: full ROM and no LAD Respiratory exam: PRESENT: accessory muscle use, rhonchi, wheezes persist Cardiovascular exam: PRESENT: RRR. ABSENT: systolic murmur GI/Abdominal exam: PRESENT: normal bowel sounds, soft. ABSENT: tenderness Extremities exam: PRESENT: pedal edema - brawny, woody edema to the BLEs, seems mildly improved ABSENT: calf tenderness Musculoskeletal exam: PRESENT: ambulatory, normal inspection Neurological exam: PRESENT: hyperalert, awake, oriented to person, oriented to place Psychiatric exam: PRESENT: agitated and restless Skin exam: PRESENT: warm. moist Results Laboratory Results: 02/05/17 04:08 02/05/17 04:08 02/05/17 02/05/17 02/05/17 04:08 04:08 04:08 WBC 10.7 H RBC 3.94 Hgb 13.0 Hct 39.9 MCV 101 H MCH 33.0 MCHC 32.6 RDW 14.6 H Plt Count 162 Sodium 141.1 Potassium 5.6 H D Chloride 109 H Carbon Dioxide 24 Anion Gap 8 BUN 24 H Creatinine 1.02 Est GFR ( Amer) > 60 Est GFR (Non-Af Amer) 55 L Glucose 140 H Calcium 9.8 TSH < 0.02 L Urine Color Urine Appearance Urine pH Ur Specific [place] Urine Protein Urine Glucose (UA) Urine Ketones Urine Blood Urine Nitrite Ur Leukocyte Esterase Urine WBC (Auto) Urine RBC (Auto) 02/05/17 09:16 WBC RBC Hgb Hct MCV MCH MCHC RDW Plt Count Sodium Potassium Chloride Carbon Dioxide Anion Gap BUN Creatinine Est GFR ( Amer) Est GFR (Non-Af Amer) Glucose Calcium TSH Urine Color YELLOW Urine Appearance CLEAR Urine pH 6.0 Ur Specific [place] 1.013 Urine Protein 30 H Urine Glucose (UA) NEGATIVE Urine Ketones NEGATIVE Urine Blood SMALL H Urine Nitrite NEGATIVE Ur Leukocyte Esterase NEGATIVE Urine WBC (Auto) 1 Urine RBC (Auto) 1 02/05/17 04:08 NT-Pro-B Natriuret Pep 3210 H Assessment & Plan - Diagnosis (1) Mural thrombus of cardiac apex Is this a current diagnosis for this admission?: YesPlan: new; continue lovenox and start coumadin today; daily monitoring INR (2) Acute bacterial bronchitis Is this a current diagnosis for this admission?: YesPlan: improved but not back to baseline; continue levaquin, nebs and supplemental O2 (3) COPD exacerbation Is this a current diagnosis for this admission?: YesPlan: Improved but not back to baseline; rapid systemic steroid wean, not clear but may be contributing to jaylan/anxiety (4) Congestive heart failure Qualifiers: Congestive heart failure type: unspecified congestive heart failure type Congestive heart failure chronicity: unspecified congestive heart failure chronicity Qualified Code(s): I50.9 - Heart failure, unspecified Is this a current diagnosis for this admission?: YesPlan: echo shows aneurysmal apical ballooning and akinetic apex; will need further ischemic eval with stress testing once her resp status improved. started anticoagulation; will need ACEi if her renal function will allow. add diuretic and monitor renal function closely. (5) Diabetes Qualifiers: Diabetes mellitus type: type 2 Diabetes mellitus complication status: with unspecified complications Diabetes mellitus bed bug exterminator insulin use: without senior living use Qualified Code(s): E11.8 - Type 2 diabetes mellitus with unspecified complications; Z79.4 - terminal operator (current) use of insulin Is this a current diagnosis for this admission?: Yes (6) Tobacco abuse Is this a current diagnosis for this admission?: Yes (7) Venous stasis Is this a current diagnosis for this admission?: Yes (8) Chronic narcotic dependence Is this a current diagnosis for this admission?: Yes (9) Anxiety Is this a current diagnosis for this admission?: YesPlan: add low dose xanax and monitor; try to get off steroids and albuterol as her condition will allow, surely they are contributing some here. - Time Time Spent with patient: 35 or more minutes Medications reviewed and adjusted accordingly: Yes
[2017-02-05] MEDS ORDERED: FUROSEMIDE INJ/PF 20 MG/2 ML SDV IV ONE (12:00)
[2017-02-05] MEDS: OXYCODONE-ACETAMINOPHEN 5-325 MG TABLET PO PRN ×3 (13:23→23:27)
[2017-02-05] MEDS ORDERED: ONDANSETRON HCL INJ/PF 4 MG/2 ML SDV IV PRN (13:28)
[2017-02-05] MEDS: INSULIN LISPRO 100 UNIT/ML 3 ML VIAL SUBCUT PRN (17:48)
[2017-02-05] MEDS: WARFARIN SODIUM 7.5 MG TABLET PO SCH (23:12)
[2017-02-05] MEDS: LEVOFLOXACIN 750 MG/D5W RTU 750 MG/150 ML RTUPB IV SCH (23:19)
[2017-02-05] MEDS: ALPRAZOLAM 0.25 MG TABLET PO PRN (23:26)
[2017-02-06] MEDS: METHADONE HCL 10 MG TABLET PO SCH ×4 (02:54→21:45)
[2017-02-06] MEDS: ALBUTEROL SULFATE 0.083% NEB 2.5 MG/3 ML AMPUL NEB PRN ×2 (08:59→23:38)
[2017-02-06] MEDS: OXYCODONE-ACETAMINOPHEN 5-325 MG TABLET PO PRN ×2 (09:08→17:08)
[2017-02-06] MEDS: METHYLPREDNISOLONE INJ 40 MG/1 ML SDV IV SCH (09:08)
[2017-02-06] MEDS: DOCUSATE SODIUM 100 MG CAPSULE PO SCH ×2 (09:09→17:08)
[2017-02-06] MEDS: ALPRAZOLAM 0.25 MG TABLET PO PRN ×2 (09:09→17:08)
[2017-02-06] MEDS: NICOTINE 21 MG/24 HR PATCH.TD24 TD SCH (09:10)
[2017-02-06] MEDS: ENOXAPARIN SODIUM INJ 40 MG/0.4 ML DISP.SYRIN SUBCUT SCH ×2 (09:16→21:50)
[2017-02-06] MEDS: FLUTICASONE NASAL SPRAY 50 MCG/SPRY 120 SPRAY/16 GM NASL SCH ×2 (09:24→21:44)
[2017-02-06] MEDS ORDERED: GABAPENTIN 300 MG CAPSULE PO SCH (10:15)
[2017-02-06] MEDS ORDERED: AMLODIPINE BESYLATE 5 MG TABLET PO SCH (10:15)
[2017-02-06] MEDS ORDERED: FUROSEMIDE INJ/PF 20 MG/2 ML SDV IV ONE (10:20)
--- NOTE | 2017-02-06 11:11 | PDOC PROGRESS REPORT ---
Subjective Progress Note for:: 02/06/17 Subjective:: reason for visit: f/u COPD exac, poss heart failure, mural apical cardiac thrombus hospital course: per other's notes - "WILNER CONSTANTINO is a 61 year old female with a past medical history of COPD, tobacco dependence, diabetes, opiate dependent chronic pain, hypertension and CVA without residual deficits who presents after 4 days of worsening shortness of breath with nonproductive cough and rhinorrhea. Denying fever chest pain nausea vomiting in the emergency room she was found to have tachypnea and rhonchi on exam she is referred to the hospitalist for admission. She denies recent changes in her medication." echo report now available and show apical aneurysm and apical clot in an akinetic apical segment. she has hx of DVT in her youth for reasons she is unaware of, previously treated with coumadin but none recently. she is undergoing care at [facility] for ovarian cancer completing high dose chemo earlier this year. I discussed with Dr Delgado the above findings. She was started on anticoagulation and given her hx and current renal function, will bridge with lovenox 1 mg/kg and start coumadin today. This likely accounts for much of her breathlessness. That being said, she remains a bit bronchospastic and will continue treatment as before for other underlying conditions. she also reports a history of thyroid mass and freely admits she failed to f/u in [place] as directed for further imaging, studies and biopsies as recommended. Her TSH is essentially undetectable, T3/T4 levels pending. states she has steadily progressed and come off BiPAP, the mask makes her too anxious to tolerate at night anyway. she denies chest pain, palpitations, n/v/d , fevers/chills but still has wheezing and breathlessness with minimal exertion. she remains very anxious and maybe a bit manic at this point, unclear if related to the steroids started Friday or not though her daughter indicates she has underlying anxiety issues. she is c/o burning pain in her feet and wants her neurontin resumed. ROS: as above, all systems reviewed, remaining systems negative. Physical Exam Vital Signs: Temp Pulse Resp BP Pulse Ox 98.0 F 85 20 147/85 H 97 02/06/17 07:14 02/06/17 08:59 02/06/17 08:59 02/06/17 07:14 02/06/17 08:59 Intake & Output 02/05/17 02/06/17 02/07/17 06:59 06:59 06:59 Intake Total 1140 1970 Output Total 1650 Balance 1140 320 Weight 109.8 kg 109.8 kg General appearance: PRESENT:mild emotional distress, obese, well-developed, well -nourished Head exam: PRESENT: atraumatic, normocephalic Eye exam: ABSENT: conjunctival injection, scleral icterus Neck exam: ABSENT: full ROM Respiratory exam: PRESENT: mild accessory muscle use, no rhonchi, persistent wheezes L>R Cardiovascular exam: PRESENT: RRR. ABSENT: systolic murmur, tachycardia GI/Abdominal exam: PRESENT: normal bowel sounds, soft. ABSENT: tenderness Extremities exam: PRESENT: pedal edema - brawny, woody edema to the BLEs unchanged. ABSENT: calf tenderness Musculoskeletal exam: PRESENT: ambulatory, normal inspection Neurological exam: PRESENT: alert, awake, oriented to person, oriented to place ; palpation of her feet elicits pain/burning sensation Psychiatric exam: PRESENT: appropriate affect, normal mood Skin exam: PRESENT: warm. and dry Results Laboratory Results: 02/05/17 04:08 02/05/17 04:08 02/05/17 04:08 NT-Pro-B Natriuret Pep 3210 H Assessment & Plan - Diagnosis (1) Mural thrombus of cardiac apex Is this a current diagnosis for this admission?: YesPlan: unchanged; continue lovenox and coumadin, daily monitoring INR (2) Acute bacterial bronchitis Is this a current diagnosis for this admission?: YesPlan: improved but not back to baseline; continue levaquin, nebs and supplemental O2 (3) COPD exacerbation Is this a current diagnosis for this admission?: YesPlan: Improved but not back to baseline; rapid systemic steroid wean as likely contributing to jaylan/anxiety (4) Congestive heart failure Qualifiers: Congestive heart failure type: unspecified congestive heart failure type Congestive heart failure chronicity: unspecified congestive heart failure chronicity Qualified Code(s): I50.9 - Heart failure, unspecified Is this a current diagnosis for this admission?: YesPlan: echo shows aneurysmal apical ballooning and akinetic apex; will need further ischemic eval with stress testing once her resp status improved. started anticoagulation; will need ACEi if her renal function will allow. added diuretic and monitor renal function closely. (5) Thyroid mass of unclear etiology Is this a current diagnosis for this admission?: YesPlan: TSH undetectable; ck T3/4; may be contributing to some of her anxiety and jaylan and possibly even to the cardiomyopathy so may need treatment (6) Diabetes Qualifiers: Diabetes mellitus type: type 2 Diabetes mellitus complication status: with unspecified complications Diabetes mellitus senior living insulin use: without middle or intermediate school principal use Qualified Code(s): E11.8 - Type 2 diabetes mellitus with unspecified complications; Z79.4 - buttermaker continuous churn (current) use of insulin Is this a current diagnosis for this admission?: YesPlan: will likely worsen with systemic steroids; resume home neurontin. continue SSI (7) Tobacco abuse Is this a current diagnosis for this admission?: Yes (8) Venous stasis Is this a current diagnosis for this admission?: Yes (9) Chronic narcotic dependence Is this a current diagnosis for this admission?: Yes (10) Anxiety Is this a current diagnosis for this admission?: Yes - Time Time Spent with patient: 25-34 minutes Medications reviewed and adjusted accordingly: Yes Anticipated discharge: Home Within: within 72 hours - awaiting Tx INR
[2017-02-06] MEDS ORDERED: AMLODIPINE BESYLATE 5 MG TABLET PO ONE (11:30)
[2017-02-06] MEDS ORDERED: GABAPENTIN 300 MG CAPSULE PO ONE (11:30)
[2017-02-06 13:48] LABS: PROTHROMBIN TIME 13.3 SEC (11.4-15.4)
[2017-02-06 13:59] LABS: ANION GAP 9 (5-19); BLOOD UREA NITROGEN 39 mg/dL (7-20); CALCIUM 10.3 mg/dL (8.4-10.2); CARBON DIOXIDE 30 mmol/L (22-30); CHLORIDE 101 mmol/L (98-107); CREATININE RESULT 1.23 mg/dL (0.52-1.25); GLUCOSE 174 mg/dL (75-110); POTASSIUM 5.1 mmol/L (3.6-5.0); SODIUM 139.6 mmol/L (137-145)
[2017-02-06] MEDS ORDERED: (PENDING PHARMACY ID) (Methadone Hcl [Dolophine Hcl] 5 MG) PO SCH (14:00)
[2017-02-06 14:13] LABS: FREE T3 4.09 pg/mL (2.77-5.27)
[2017-02-06] MEDS: PRAMIPEXOLE DI-HCL 0.5 MG TABLET PO SCH (17:45)
[2017-02-06] MEDS: BUDESONIDE/FORMOTEROL 160-4.5 MCG 60 PUFF/6 GM MDI IH SCH (21:43)
[2017-02-06] MEDS: LEVOFLOXACIN 750 MG TABLET PO SCH (21:45)
[2017-02-06] MEDS: GABAPENTIN 300 MG CAPSULE PO SCH (21:45)
[2017-02-06] MEDS: WARFARIN SODIUM 7.5 MG TABLET PO SCH (21:46)
[2017-02-07] MEDS: OXYCODONE-ACETAMINOPHEN 5-325 MG TABLET PO PRN ×2 (04:26→15:51)
[2017-02-07] MEDS: METHADONE HCL 10 MG TABLET PO SCH ×3 (05:17→21:22)
[2017-02-07] MEDS: ALBUTEROL SULFATE 0.083% NEB 2.5 MG/3 ML AMPUL NEB PRN (05:25)
[2017-02-07 06:05] LABS: PROTHROMBIN TIME 13.9 SEC (11.4-15.4)
[2017-02-07 06:07] LABS: MEAN CORPUSCULAR HGB CONC 33.5 g/dL (32.0-36.0); MEAN CORPUSCULAR VOLUME 99 fl (80-97); RED BLOOD COUNT 3.95 10^6/uL (3.72-5.28); RED CELL DISTRIBUTION WIDTH 14.1 % (11.5-14.0); WHITE BLOOD COUNT 6.5 10^3/uL (4.0-10.5)
[2017-02-07 08:53] LABS: BLOOD UREA NITROGEN 40 mg/dL (7-20); CALCIUM 9.7 mg/dL (8.4-10.2); CREATININE RESULT 1.17 mg/dL (0.52-1.25); GLUCOSE 90 mg/dL (75-110)
[2017-02-07 09:06] LABS: CARBON DIOXIDE 30 mmol/L (22-30); CHLORIDE 104 mmol/L (98-107); POTASSIUM 4.4 mmol/L (3.6-5.0); SODIUM 140.5 mmol/L (137-145)
[2017-02-07 09:11] LABS: ANION GAP 7 (5-19)
[2017-02-07] MEDS: ENOXAPARIN SODIUM INJ 40 MG/0.4 ML DISP.SYRIN SUBCUT SCH ×2 (09:57→21:22)
[2017-02-07] MEDS: AMLODIPINE BESYLATE 5 MG TABLET PO SCH (10:01)
[2017-02-07] MEDS: FLUTICASONE NASAL SPRAY 50 MCG/SPRY 120 SPRAY/16 GM NASL SCH ×2 (10:01→21:22)
[2017-02-07] MEDS: PREDNISONE 20 MG TABLET PO SCH (10:02)
[2017-02-07] MEDS: BUDESONIDE/FORMOTEROL 160-4.5 MCG 60 PUFF/6 GM MDI IH SCH ×2 (10:02→21:22)
[2017-02-07] MEDS: DOCUSATE SODIUM 100 MG CAPSULE PO SCH ×2 (10:02→17:26)
[2017-02-07] MEDS: GABAPENTIN 300 MG CAPSULE PO SCH ×2 (10:03→21:22)
[2017-02-07] MEDS: NICOTINE 21 MG/24 HR PATCH.TD24 TD SCH (10:03)
[2017-02-07] MEDS ORDERED: FUROSEMIDE 20 MG TABLET PO ONE (12:00)
[2017-02-07 12:27] LABS: APPEARANCE,URINE SLIGHTLY-CLOUDY; BILIRUBIN,URINE NEGATIVE (NEGATIVE); GLUCOSE, URINE NEGATIVE (NEGATIVE); KETONES,URINE NEGATIVE (NEGATIVE); LEUKOCYTE ESTERASE,URINE NEGATIVE (NEGATIVE); NITRITE,URINE NEGATIVE (NEGATIVE); PROTEIN,URINE 30 mg/dL (NEGATIVE); URINE SPECIFIC GRAVITY 1.023; UROBILINOGEN,URINE NEGATIVE mg/dL (<2.0)
--- NOTE | 2017-02-07 14:22 | PDOC PROGRESS REPORT ---
Subjective Progress Note for:: 02/07/17 Subjective:: reason for visit: f/u COPD exac, poss heart failure, mural apical cardiac thrombus hospital course: per other's notes - "WILNER CONSTANTINO is a 61 year old female with a past medical history of COPD, tobacco dependence, diabetes, opiate dependent chronic pain, hypertension and CVA without residual deficits who presents after 4 days of worsening shortness of breath with nonproductive cough and rhinorrhea. Denying fever chest pain nausea vomiting in the emergency room she was found to have tachypnea and rhonchi on exam she is referred to the hospitalist for admission. She denies recent changes in her medication." echo report now available and show apical aneurysm and apical clot in an akinetic apical segment. she has hx of DVT in her youth for reasons she is unaware of, previously treated with coumadin but none recently. she is undergoing care at [place] [facility] for ovarian cancer completing high dose chemo earlier this year. I discussed with Dr Delgado the above findings. She was started on anticoagulation and given her hx and current renal function, will bridge with lovenox 1 mg/kg and start coumadin today. This likely accounts for much of her breathlessness. That being said, she remains a bit bronchospastic and will continue treatment as before for other underlying conditions. she also reports a history of thyroid mass and freely admits she failed to f/u in [place] as directed for further imaging, studies and biopsies as recommended. Her TSH is essentially undetectable, T3/T4 levels not elevated. states she has steadily progressed and come off BiPAP, the mask makes her too anxious to tolerate at night anyway. she denies chest pain, palpitations, n/v/d , fevers/chills but still has wheezing and breathlessness with minimal exertion. she is much less anxious and no longer manic at this point, unclear if related to the steroids started Friday or not though her daughter indicates she has underlying anxiety issues. The burning pain in her feet resolved with resumption of her neurontin. ROS: as above, all systems reviewed, remaining systems negative. Physical Exam Vital Signs: Temp Pulse Resp BP Pulse Ox 97.8 F 138 H 19 128/67 H 99 02/07/17 10:50 02/07/17 10:50 02/07/17 10:50 02/07/17 10:50 02/07/17 10:50 Intake & Output 02/06/17 02/07/17 02/08/17 06:59 06:59 06:59 Intake Total 1970 542 Output Total 1650 1500 Balance 320 -958 Weight 109.8 kg 109.8 kg General appearance: PRESENT:no emotional distress, obese, well-developed, well- nourished, color improved Head exam: PRESENT: atraumatic, normocephalic Eye exam: ABSENT: conjunctival injection, scleral icterus Neck exam: has full ROM Respiratory exam: PRESENT: no accessory muscle use, no rhonchi, persistent wheezes L>R but much improved today Cardiovascular exam: PRESENT: RRR. ABSENT: systolic murmur, tachycardia GI/Abdominal exam: PRESENT: normal bowel sounds, soft. ABSENT: tenderness Extremities exam: PRESENT: pedal edema - brawny, woody edema to the BLEs worse today with increased redness but no heat or tenderness, she thinks they look and feel much better. ABSENT: calf tenderness Musculoskeletal exam: PRESENT: ambulatory, normal inspection Neurological exam: PRESENT: alert, awake, oriented to person, oriented to place Psychiatric exam: PRESENT: appropriate affect, normal mood Skin exam: PRESENT: warm. and moist Results Laboratory Results: 02/07/17 05:17 02/07/17 05:17 02/06/17 02/07/17 02/07/17 13:07 05:17 05:17 WBC 6.5 RBC 3.95 Hgb 13.0 Hct 39.0 MCV 99 H MCH 33.0 MCHC 33.5 RDW 14.1 H Plt Count 163 Sodium 140.5 Potassium 4.4 Chloride 104 Carbon Dioxide 30 Anion Gap 7 BUN 40 H Creatinine 1.17 Est GFR ( Amer) 57 L Est GFR (Non-Af Amer) 47 L Glucose 90 Calcium 9.7 Free T4 1.25 Free T3 pg/mL 4.09 Urine Color Urine Appearance Urine pH Ur Specific [place] Urine Protein Urine Glucose (UA) Urine Ketones Urine Blood Urine Nitrite Ur Leukocyte Esterase Urine WBC (Auto) Urine RBC (Auto) 02/07/17 11:35 WBC RBC Hgb Hct MCV MCH MCHC RDW Plt Count Sodium Potassium Chloride Carbon Dioxide Anion Gap BUN Creatinine Est GFR ( Amer) Est GFR (Non-Af Amer) Glucose Calcium Free T4 Free T3 pg/mL Urine Color YELLOW Urine Appearance SLIGHTLY-CLOUDY Urine pH 6.0 Ur Specific [place] 1.023 Urine Protein 30 H Urine Glucose (UA) NEGATIVE Urine Ketones NEGATIVE Urine Blood NEGATIVE Urine Nitrite NEGATIVE Ur Leukocyte Esterase NEGATIVE Urine WBC (Auto) 0 Urine RBC (Auto) 0 02/04/17 02:30 Blood Blood Culture - Final Staphylococcus Epidermidis 02/05/17 04:08 NT-Pro-B Natriuret Pep 3210 H Assessment & Plan - Diagnosis (1) Mural thrombus of cardiac apex Is this a current diagnosis for this admission?: YesPlan: unchanged; continue lovenox and coumadin, daily monitoring INR (2) Acute bacterial bronchitis Is this a current diagnosis for this admission?: YesPlan: improved but not back to baseline; continue levaquin, nebs and supplemental O2 (3) COPD exacerbation Is this a current diagnosis for this admission?: YesPlan: Improved but not back to baseline; continue rapid systemic steroid wean as likely contributing to jaylan/anxiety (4) Congestive heart failure Qualifiers: Congestive heart failure type: unspecified congestive heart failure type Congestive heart failure chronicity: unspecified congestive heart failure chronicity Qualified Code(s): I50.9 - Heart failure, unspecified Is this a current diagnosis for this admission?: YesPlan: echo shows aneurysmal apical ballooning and akinetic apex; will need further ischemic eval with stress testing once her resp status improved. started anticoagulation; will need ACEi if her renal function will allow. increase diuretic as lower ext edema worsening and monitor renal function closely. (5) Thyroid mass of unclear etiology Is this a current diagnosis for this admission?: YesPlan: TSH undetectable; T3/4 not elevated; f/u with [facility] for further imaging and evaluation (6) Diabetes Qualifiers: Diabetes mellitus type: type 2 Diabetes mellitus complication status: with unspecified complications Diabetes mellitus senior care insulin use: without senior care use Qualified Code(s): E11.8 - Type 2 diabetes mellitus with unspecified complications; Z79.4 - [facility] (current) use of insulin Is this a current diagnosis for this admission?: YesPlan: BSs controlled on current regimen; resume home neurontin. continue SSI (7) Tobacco abuse Is this a current diagnosis for this admission?: Yes (8) Venous stasis Is this a current diagnosis for this admission?: YesPlan: worse, increase diuretic and monitor for developing cellulitis (9) Chronic narcotic dependence Is this a current diagnosis for this admission?: Yes (10) Anxiety Is this a current diagnosis for this admission?: YesPlan: much improved with low dose xanax; try to get off steroids and albuterol as her condition will allow, surely they are contributing some here. - Time Time Spent with patient: 25-34 minutes Medications reviewed and adjusted accordingly: Yes Anticipated discharge: Home - when INR tx
[2017-02-07] MEDS: PRAMIPEXOLE DI-HCL 0.5 MG TABLET PO SCH (17:26)
[2017-02-07] MEDS: FUROSEMIDE 20 MG TABLET PO SCH (17:27)
[2017-02-07] MEDS: WARFARIN SODIUM 7.5 MG TABLET PO SCH (21:22)
[2017-02-07] MEDS: LEVOFLOXACIN 750 MG TABLET PO SCH (21:22)
[2017-02-08] MEDS: OXYCODONE-ACETAMINOPHEN 5-325 MG TABLET PO PRN ×3 (00:38→16:24)
[2017-02-08] MEDS: METHADONE HCL 10 MG TABLET PO SCH ×3 (05:43→21:24)
[2017-02-08] MEDS ORDERED: NORMAL SALINE 10 ML SDV (AFTER EACH USE) IV PRN (06:07)
[2017-02-08] MEDS: PREDNISONE 20 MG TABLET PO SCH (10:42)
[2017-02-08] MEDS: FUROSEMIDE 20 MG TABLET PO SCH ×2 (10:43→18:03)
--- NOTE | 2017-02-08 10:43 | PDOC PROGRESS REPORT ---
Subjective Progress Note for:: 02/08/17 Subjective:: reason for visit: f/u COPD exac, poss heart failure, mural apical cardiac thrombus hospital course: per other's notes - "WILNER CONSTANTINO is a 61 year old female with a past medical history of COPD, tobacco dependence, diabetes, opiate dependent chronic pain, hypertension and CVA without residual deficits who presents after 4 days of worsening shortness of breath with nonproductive cough and rhinorrhea. Denying fever chest pain nausea vomiting in the emergency room she was found to have tachypnea and rhonchi on exam she is referred to the hospitalist for admission. She denies recent changes in her medication." echo report now available and show apical aneurysm and apical clot in an akinetic apical segment. she has hx of DVT in her youth for reasons she is unaware of, previously treated with coumadin but none recently. she is undergoing care at [place] [facility] [place] for ovarian cancer completing high dose chemo earlier this year. I discussed with Dr Delgado the above findings. She was started on anticoagulation and given her hx and current renal function, will bridge with lovenox 1 mg/kg and start coumadin today. This likely accounts for much of her breathlessness. That being said, she remains a bit bronchospastic and will continue treatment as before for other underlying conditions. she also reports a history of thyroid mass and freely admits she failed to f/u in [place] as directed for further imaging, studies and biopsies as recommended. Her TSH is essentially undetectable, T3/T4 levels not elevated. states she has steadily progressed and come off BiPAP, the mask makes her too anxious to tolerate at night anyway. she denies chest pain, palpitations, n/v/d , fevers/chills but still has wheezing and breathlessness with minimal exertion. she is much less anxious and no longer manic at this point, unclear if related to the steroids started Friday or not though her daughter indicates she has underlying anxiety issues. The burning pain in her feet resolved with resumption of her neurontin. no new complaints to me today. ROS: as above, all systems reviewed, remaining systems negative. Physical Exam Vital Signs: Temp Pulse Resp BP Pulse Ox 98.0 F 76 18 123/67 100 02/08/17 07:26 02/08/17 07:26 02/08/17 07:26 02/08/17 07:26 02/08/17 07:26 Intake & Output 02/07/17 02/08/17 02/09/17 06:59 06:59 06:59 Intake Total 542 1110 Output Total 1500 300 Balance -958 810 Weight 109.8 kg 109.8 kg General appearance: PRESENT:no emotional distress, obese, well-developed, well- nourished, color improved Head exam: PRESENT: atraumatic, normocephalic Eye exam: ABSENT: conjunctival injection, scleral icterus Neck exam: has full ROM Respiratory exam: PRESENT: no accessory muscle use, no rhonchi, persistent wheezes but improved again today, worse in am Cardiovascular exam: PRESENT: RRR. ABSENT: systolic murmur, tachycardia GI/Abdominal exam: PRESENT: normal bowel sounds, soft. ABSENT: tenderness Extremities exam: PRESENT: pedal edema - brawny, woody edema to the BLEs worse today with increased redness but no heat or tenderness, she thinks they look and feel much better. ABSENT: calf tenderness Musculoskeletal exam: PRESENT: ambulatory, normal inspection Neurological exam: PRESENT: alert, awake, oriented to person, oriented to place Psychiatric exam: PRESENT: appropriate affect, normal mood Skin exam: PRESENT: warm. and moist Results Laboratory Results: 02/07/17 05:17 02/07/17 05:17 02/07/17 02/07/17 11:35 18:50 Urine Color YELLOW Urine Appearance SLIGHTLY-CLOUDY Urine pH 6.0 Ur Specific [place] 1.023 Urine Protein 30 H Urine Glucose (UA) NEGATIVE Urine Ketones NEGATIVE Urine Blood NEGATIVE Urine Nitrite NEGATIVE Ur Leukocyte Esterase NEGATIVE Urine WBC (Auto) 0 Urine RBC (Auto) 0 Stool Occult Blood NEGATIVE 02/05/17 04:08 NT-Pro-B Natriuret Pep 3210 H Assessment & Plan - Diagnosis (1) Mural thrombus of cardiac apex Is this a current diagnosis for this admission?: YesPlan: unchanged; increase lovenox to 1mg/kg now that her renal function has improved and ccontinue coumadin, daily monitoring INR (2) Acute bacterial bronchitis Is this a current diagnosis for this admission?: YesPlan: improved but not back to baseline; continue 7d levaquin, nebs and supplemental O2 (3) COPD exacerbation Is this a current diagnosis for this admission?: Yes (4) Congestive heart failure Qualifiers: Congestive heart failure type: unspecified congestive heart failure type Congestive heart failure chronicity: unspecified congestive heart failure chronicity Qualified Code(s): I50.9 - Heart failure, unspecified Is this a current diagnosis for this admission?: Yes (5) Thyroid mass of unclear etiology Is this a current diagnosis for this admission?: Yes (6) Diabetes Qualifiers: Diabetes mellitus type: type 2 Diabetes mellitus complication status: with unspecified complications Diabetes mellitus long term care social worker insulin use: without group home use Qualified Code(s): E11.8 - Type 2 diabetes mellitus with unspecified complications; Z79.4 - [facility] use of [facility] Is this a current diagnosis for this admission?: Yes (7) Tobacco abuse Is this a current diagnosis for this admission?: Yes (8) Venous stasis Is this a current diagnosis for this admission?: Yes (9) Chronic narcotic dependence Is this a current diagnosis for this admission?: Yes (10) Anxiety Is this a current diagnosis for this admission?: Yes (11) Oral thrush Is this a current diagnosis for this admission?: YesPlan: new: add topical care and monitor for improvement - Time Time Spent with patient: 15-24 minutes Medications reviewed and adjusted accordingly: Yes
[2017-02-08] MEDS: DOCUSATE SODIUM 100 MG CAPSULE PO SCH ×2 (10:44→18:03)
[2017-02-08] MEDS: GABAPENTIN 300 MG CAPSULE PO SCH ×2 (10:44→21:23)
[2017-02-08] MEDS: NICOTINE 21 MG/24 HR PATCH.TD24 TD SCH (10:44)
[2017-02-08] MEDS: AMLODIPINE BESYLATE 5 MG TABLET PO SCH (10:44)
[2017-02-08] MEDS: BUDESONIDE/FORMOTEROL 160-4.5 MCG 60 PUFF/6 GM MDI IH SCH ×2 (10:46→21:24)
[2017-02-08] MEDS: FLUTICASONE NASAL SPRAY 50 MCG/SPRY 120 SPRAY/16 GM NASL SCH ×2 (10:46→21:24)
[2017-02-08] MEDS: NYSTATIN/DEXAMETH/DIPHEN SUSP 120 ML PO SCH ×4 (10:48→21:24)
[2017-02-08] MEDS: ENOXAPARIN SODIUM INJ 120 MG/0.8 ML DISP.SYRIN SUBCUT SCH ×2 (10:51→21:24)
[2017-02-08] MEDS: NORMAL SALINE 10 ML SDV (SCHEDULED) IV SCH ×2 (11:01→21:24)
[2017-02-08] MEDS: ALBUTEROL SULFATE 0.083% NEB 2.5 MG/3 ML AMPUL NEB PRN (12:21)
[2017-02-08] MEDS: INSULIN LISPRO 100 UNIT/ML 3 ML VIAL SUBCUT PRN (16:22)
[2017-02-08] MEDS: LANSOPRAZOLE 30 MG TAB.RAP.DR PO SCH (16:23)
[2017-02-08] MEDS: PRAMIPEXOLE DI-HCL 0.5 MG TABLET PO SCH (18:03)
[2017-02-08] MEDS: LEVOFLOXACIN 750 MG TABLET PO SCH (21:23)
[2017-02-08] MEDS: WARFARIN SODIUM 7.5 MG TABLET PO SCH (21:24)
[2017-02-09] MEDS: OXYCODONE-ACETAMINOPHEN 5-325 MG TABLET PO PRN ×3 (02:47→15:55)
[2017-02-09] MEDS: LANSOPRAZOLE 30 MG TAB.RAP.DR PO SCH ×2 (05:39→16:18)
[2017-02-09] MEDS: METHADONE HCL 10 MG TABLET PO SCH ×3 (05:40→21:30)
[2017-02-09 06:26] LABS: PROTHROMBIN TIME 16.9 SEC (11.4-15.4)
[2017-02-09] MEDS: NICOTINE 21 MG/24 HR PATCH.TD24 TD SCH (09:58)
[2017-02-09] MEDS: ENOXAPARIN SODIUM INJ 120 MG/0.8 ML DISP.SYRIN SUBCUT SCH ×2 (09:58→21:29)
[2017-02-09] MEDS: PREDNISONE 20 MG TABLET PO SCH (09:59)
[2017-02-09] MEDS: FLUTICASONE NASAL SPRAY 50 MCG/SPRY 120 SPRAY/16 GM NASL SCH ×2 (09:59→21:29)
[2017-02-09] MEDS: BUDESONIDE/FORMOTEROL 160-4.5 MCG 60 PUFF/6 GM MDI IH SCH ×2 (09:59→21:29)
[2017-02-09] MEDS: FUROSEMIDE 20 MG TABLET PO SCH ×2 (10:00→18:15)
[2017-02-09] MEDS: AMLODIPINE BESYLATE 5 MG TABLET PO SCH (10:00)
[2017-02-09] MEDS: NORMAL SALINE 10 ML SDV (SCHEDULED) IV SCH ×2 (10:00→21:29)
[2017-02-09] MEDS: NYSTATIN/DEXAMETH/DIPHEN SUSP 120 ML PO SCH ×4 (10:00→21:30)
[2017-02-09] MEDS: DOCUSATE SODIUM 100 MG CAPSULE PO SCH ×2 (10:54→18:15)
[2017-02-09] MEDS: GABAPENTIN 300 MG CAPSULE PO SCH ×2 (10:54→21:30)
[2017-02-09] MEDS: ALBUTEROL SULFATE 0.083% NEB 2.5 MG/3 ML AMPUL NEB PRN (11:27)
--- NOTE | 2017-02-09 15:03 | PDOC PROGRESS REPORT ---
Subjective Progress Note for:: 02/09/17 Subjective:: reason for visit: f/u COPD exac, poss heart failure, mural apical cardiac thrombus hospital course: per other's notes - "WILNER CONSTANTINO is a 61 year old female with a past medical history of COPD, tobacco dependence, diabetes, opiate dependent chronic pain, hypertension and CVA without residual deficits who presents after 4 days of worsening shortness of breath with nonproductive cough and rhinorrhea. Denying fever chest pain nausea vomiting in the emergency room she was found to have tachypnea and rhonchi on exam she is referred to the hospitalist for admission. She denies recent changes in her medication." echo report now available and show apical aneurysm and apical clot in an akinetic apical segment. she has hx of DVT in her youth for reasons she is unaware of, previously treated with coumadin but none recently. she is undergoing care at [place] [facility] for ovarian cancer completing high dose chemo earlier this year. I discussed with Dr Delgado the above findings. She was started on anticoagulation and given her hx and current renal function, will bridge with lovenox 1 mg/kg and start coumadin today. This likely accounts for much of her breathlessness. That being said, she remains a bit bronchospastic and will continue treatment as before for other underlying conditions. she also reports a history of thyroid mass and freely admits she failed to f/u in [place] as directed for further imaging, studies and biopsies as recommended. Her TSH is essentially undetectable, T3/T4 levels not elevated. has steadily progressed and come off BiPAP, the mask makes her too anxious to tolerate at night anyway. she denies chest pain, palpitations, n/v/d, fevers/chills but still has wheezing and breathlessness with exertion. she is much less anxious and no longer manic at this point, unclear if related to the steroids started Friday or not though her daughter indicates she has underlying anxiety issues. The burning pain in her feet resolved with resumption of her neurontin. no new complaints to me today. ROS: as above, all systems reviewed, remaining systems negative. Physical Exam Vital Signs: Temp Pulse Resp BP Pulse Ox 97.7 F 87 21 H 154/55 H 94 02/09/17 11:38 02/09/17 11:38 02/09/17 11:38 02/09/17 11:38 02/09/17 11:38 Intake & Output 02/08/17 02/09/17 02/10/17 06:59 06:59 06:59 Intake Total 1110 1595 1200 Output Total 300 2 Balance 810 1595 1198 Weight 109.8 kg 109.8 kg General appearance: PRESENT:no emotional distress, obese, well-developed, well- nourished, color improved Head exam: PRESENT: atraumatic, normocephalic Eye exam: ABSENT: conjunctival injection, scleral icterus Neck exam: has full ROM Respiratory exam: PRESENT: no accessory muscle use, no rhonchi, persistent wheezes but improved again today, worse in am Cardiovascular exam: PRESENT: RRR. ABSENT: systolic murmur, tachycardia GI/Abdominal exam: PRESENT: normal bowel sounds, soft. ABSENT: tenderness Extremities exam: PRESENT: pedal edema - brawny, woody edema to the BLEs improved today with decreased redness and no heat or tenderness ABSENT: calf tenderness Musculoskeletal exam: PRESENT: ambulatory, normal inspection Neurological exam: PRESENT: alert, awake, oriented to person, oriented to place Psychiatric exam: PRESENT: appropriate affect, normal mood Skin exam: PRESENT: warm. and moist Results Laboratory Results: 02/07/17 05:17 02/07/17 05:17 02/04/17 06:06 Blood Blood Culture - Final NO GROWTH IN 5 DAYS 02/05/17 04:08 NT-Pro-B Natriuret Pep 3210 H Assessment & Plan - Diagnosis (1) Mural thrombus of cardiac apex Is this a current diagnosis for this admission?: YesPlan: unchanged; continue lovenox to 1mg/kg now that her renal function has improved and increase coumadin, daily monitoring INR (2) Acute bacterial bronchitis Is this a current diagnosis for this admission?: YesPlan: improved but not back to baseline; continue 7d levaquin, nebs and supplemental O2 (3) COPD exacerbation Is this a current diagnosis for this admission?: Yes (4) Congestive heart failure Qualifiers: Congestive heart failure type: unspecified congestive heart failure type Congestive heart failure chronicity: unspecified congestive heart failure chronicity Qualified Code(s): I50.9 - Heart failure, unspecified Is this a current diagnosis for this admission?: Yes (5) Thyroid mass of unclear etiology Is this a current diagnosis for this admission?: Yes (6) Diabetes Qualifiers: Diabetes mellitus type: type 2 Diabetes mellitus complication status: with unspecified complications Diabetes mellitus joint terminal attack controller insulin use: without joint terminal attack controller use Qualified Code(s): E11.8 - Type 2 diabetes mellitus with unspecified complications; Z79.4 - [facility] (current) use of insulin Is this a current diagnosis for this admission?: Yes (7) Tobacco abuse Is this a current diagnosis for this admission?: Yes (8) Venous stasis Is this a current diagnosis for this admission?: Yes (9) Chronic narcotic dependence Is this a current diagnosis for this admission?: Yes (10) Anxiety Is this a current diagnosis for this admission?: Yes (11) Oral thrush Is this a current diagnosis for this admission?: Yes - Time Time Spent with patient: 15-24 minutes Medications reviewed and adjusted accordingly: Yes
[2017-02-09] MEDS: INSULIN LISPRO 100 UNIT/ML 3 ML VIAL SUBCUT PRN (16:18)
[2017-02-09] MEDS: PRAMIPEXOLE DI-HCL 0.5 MG TABLET PO SCH (18:15)
[2017-02-09] MEDS: LEVOFLOXACIN 750 MG TABLET PO SCH (21:30)
[2017-02-09] MEDS ORDERED: WARFARIN SODIUM 5 MG TABLET PO SCH (22:00)
[2017-02-10] MEDS: LANSOPRAZOLE 30 MG TAB.RAP.DR PO SCH ×2 (05:20→17:09)
[2017-02-10] MEDS: METHADONE HCL 10 MG TABLET PO SCH ×3 (05:20→21:11)
[2017-02-10] MEDS: OXYCODONE-ACETAMINOPHEN 5-325 MG TABLET PO PRN ×3 (05:20→22:44)
[2017-02-10 07:17] LABS: HEMATOCRIT 42.3 % (36.0-47.0); HEMOGLOBIN 13.9 g/dL (12.0-15.5); HGB HCT DIFFERENCE -0.6; MEAN CORPUSCULAR HEMOGLOBIN 32.7 pg (27.0-33.4); MEAN CORPUSCULAR HGB CONC 32.8 g/dL (32.0-36.0); MEAN CORPUSCULAR VOLUME 100 fl (80-97); RED BLOOD COUNT 4.25 10^6/uL (3.72-5.28); RED CELL DISTRIBUTION WIDTH 14.2 % (11.5-14.0); WHITE BLOOD COUNT 8.6 10^3/uL (4.0-10.5)
[2017-02-10 07:25] LABS: PROTHROMBIN TIME 20.1 SEC (11.4-15.4)
[2017-02-10] MEDS: ENOXAPARIN SODIUM INJ 120 MG/0.8 ML DISP.SYRIN SUBCUT SCH ×2 (09:13→21:07)
[2017-02-10] MEDS: GABAPENTIN 300 MG CAPSULE PO SCH ×2 (09:15→21:09)
[2017-02-10] MEDS: DOCUSATE SODIUM 100 MG CAPSULE PO SCH ×2 (09:16→17:09)
[2017-02-10] MEDS: PREDNISONE 20 MG TABLET PO SCH (09:16)
[2017-02-10] MEDS: FUROSEMIDE 20 MG TABLET PO SCH ×2 (09:16→17:09)
[2017-02-10] MEDS: AMLODIPINE BESYLATE 5 MG TABLET PO SCH (09:16)
[2017-02-10] MEDS: BUDESONIDE/FORMOTEROL 160-4.5 MCG 60 PUFF/6 GM MDI IH SCH ×2 (09:17→21:08)
[2017-02-10] MEDS: NICOTINE 21 MG/24 HR PATCH.TD24 TD SCH (09:17)
[2017-02-10] MEDS: TIOTROPIUM BROMIDE DPI 5 CAP/KIT (18 MCG/CAP) IH SCH (09:18)
[2017-02-10] MEDS: NYSTATIN/DEXAMETH/DIPHEN SUSP 120 ML PO SCH ×4 (09:20→21:10)
[2017-02-10] MEDS: FLUTICASONE NASAL SPRAY 50 MCG/SPRY 120 SPRAY/16 GM NASL SCH ×2 (09:20→21:08)
[2017-02-10] MEDS: NORMAL SALINE 10 ML SDV (SCHEDULED) IV SCH ×2 (09:20→21:10)
[2017-02-10] MEDS: ALBUTEROL SULFATE 0.083% NEB 2.5 MG/3 ML AMPUL NEB PRN (14:34)
[2017-02-10] MEDS ORDERED: MAG HYDROX/AL HYDROX/SIMETH SUSP 30 ML UDCUP PO PRN (14:46)
[2017-02-10] MEDS ORDERED: ALPRAZOLAM 0.25 MG TABLET PO PRN (14:47)
--- NOTE | 2017-02-10 16:10 | PDOC PROGRESS REPORT ---
Subjective Progress Note for:: 02/10/17 Subjective:: reason for visit: f/u COPD exac, poss heart failure, mural apical cardiac thrombus hospital course: per other's notes - "WILNER CONSTANTINO is a 61 year old female with a past medical history of COPD, tobacco dependence, diabetes, opiate dependent chronic pain, hypertension and CVA without residual deficits who presents after 4 days of worsening shortness of breath with nonproductive cough and rhinorrhea. Denying fever chest pain nausea vomiting in the emergency room she was found to have tachypnea and rhonchi on exam she is referred to the hospitalist for admission. She denies recent changes in her medication." echo report now available and show apical aneurysm and apical clot in an akinetic apical segment. she has hx of DVT in her youth for reasons she is unaware of, previously treated with coumadin but none recently. she is undergoing care at [facility] for ovarian cancer completing high dose chemo earlier this year. I discussed with Dr Delgado the above findings. She was started on anticoagulation and given her hx and current renal function, will bridge with lovenox 1 mg/kg and start coumadin today. This likely accounts for much of her breathlessness. That being said, she remains a bit bronchospastic and will continue treatment as before for other underlying conditions. she also reports a history of thyroid mass and freely admits she failed to f/u in [place] as directed for further imaging, studies and biopsies as recommended. Her TSH is essentially undetectable, T3/T4 levels not elevated. has steadily progressed and come off BiPAP, the mask makes her too anxious to tolerate at night anyway. she denies chest pain, palpitations, n/v/d, fevers/chills but still has wheezing , improving breathlessness with exertion. she is much less anxious and no longer manic at this point, unclear if related to the steroids started Friday or not though her daughter indicates she has underlying anxiety issues. The burning pain in her feet resolved with resumption of her neurontin. no new complaints to me today. she is bored and wants to go home. given 10mg coumadin last night and INR 1.6 today. ROS: as above, all systems reviewed, remaining systems negative. Physical Exam Vital Signs: Temp Pulse Resp BP Pulse Ox 97.6 F 104 H 18 146/77 H 95 02/10/17 15:57 02/10/17 15:57 02/10/17 15:57 02/10/17 15:57 02/10/17 15:57 Intake & Output 02/09/17 02/10/17 02/11/17 06:59 06:59 06:59 Intake Total 1595 1730 Output Total 2 Balance 1595 1728 Weight 109.8 kg 109.8 kg General appearance: PRESENT:no emotional distress, obese, well-developed, well- nourished, color improved Head exam: PRESENT: atraumatic, normocephalic Eye exam: ABSENT: conjunctival injection, scleral icterus Neck exam: has full ROM Respiratory exam: PRESENT: no accessory muscle use, no rhonchi, persistent wheezes but faint end exp anteriorly and likely her baseline Cardiovascular exam: PRESENT: RRR. ABSENT: systolic murmur, tachycardia GI/Abdominal exam: PRESENT: normal bowel sounds, soft. ABSENT: tenderness Extremities exam: PRESENT: pedal edema - brawny, woody edema to the BLEs improved with decreased redness and no heat or tenderness ABSENT: calf tenderness Musculoskeletal exam: PRESENT: ambulatory, normal inspection Neurological exam: PRESENT: alert, awake, oriented to person, oriented to place Psychiatric exam: PRESENT: appropriate affect, normal mood Skin exam: PRESENT: warm. and moist Results Laboratory Results: 02/10/17 06:35 02/07/17 05:17 02/10/17 06:35 WBC 8.6 RBC 4.25 Hgb 13.9 Hct 42.3 MCV 100 H MCH 32.7 MCHC 32.8 RDW 14.2 H Plt Count 187 02/05/17 04:08 NT-Pro-B Natriuret Pep 3210 H Assessment & Plan - Diagnosis (1) Mural thrombus of cardiac apex Is this a current diagnosis for this admission?: YesPlan: unchanged; continue lovenox 1mg/kg now that her renal function has improved and continue coumadin at 7.5mg tonight, daily monitoring INR and home when >2.0< 3.0 (2) Acute bacterial bronchitis Is this a current diagnosis for this admission?: YesPlan: improved and likely back to baseline; continue 7d levaquin (thru 02/12), nebs and supplemental O2 (3) COPD exacerbation Is this a current diagnosis for this admission?: YesPlan: Improved and likely back to baseline; still on systemic steroid wean rapidly as likely contributed to jaylan/anxiety (4) Congestive heart failure Qualifiers: Congestive heart failure type: unspecified congestive heart failure type Congestive heart failure chronicity: unspecified congestive heart failure chronicity Qualified Code(s): I50.9 - Heart failure, unspecified Is this a current diagnosis for this admission?: YesPlan: echo shows aneurysmal apical ballooning and akinetic apex; will need further ischemic eval with stress testing once her resp status improved. started anticoagulation; will need ACEi if her renal function will allow. continue diuretic as lower ext edema worsening and monitor renal function closely. (5) Thyroid mass of unclear etiology Is this a current diagnosis for this admission?: YesPlan: TSH undetectable; T3/4 not elevated; f/u with [facility] for further imaging and evaluation (6) Venous stasis Is this a current diagnosis for this admission?: YesPlan: improving with increase diuretic and no evidence for cellulitis (7) Diabetes Qualifiers: Diabetes mellitus type: type 2 Diabetes mellitus complication status: with unspecified complications Diabetes mellitus terminal gauger supervisor insulin use: without terminal gauger supervisor use Qualified Code(s): E11.8 - Type 2 diabetes mellitus with unspecified complications; Z79.4 - long-term (current) use of insulin Is this a current diagnosis for this admission?: Yes (8) Tobacco abuse Is this a current diagnosis for this admission?: Yes (9) Chronic narcotic dependence Is this a current diagnosis for this admission?: Yes (10) Anxiety Is this a current diagnosis for this admission?: Yes (11) Oral thrush Is this a current diagnosis for this admission?: YesPlan: improved with topical care and monitor for improvement - Time Time Spent with patient: 25-34 minutes Anticipated discharge: Home Within: within 48 hours
[2017-02-10] MEDS: PRAMIPEXOLE DI-HCL 0.5 MG TABLET PO SCH (17:09)
[2017-02-10] MEDS: INSULIN LISPRO 100 UNIT/ML 3 ML VIAL SUBCUT PRN ×2 (17:36→22:45)
[2017-02-10] MEDS: LEVOFLOXACIN 750 MG TABLET PO SCH (21:09)
[2017-02-10] MEDS ORDERED: WARFARIN SODIUM 7.5 MG TABLET PO SCH (22:00)
[2017-02-11] MEDS: OXYCODONE-ACETAMINOPHEN 5-325 MG TABLET PO PRN (02:47)
[2017-02-11] MEDS: METHADONE HCL 10 MG TABLET PO SCH ×2 (05:21→13:17)
[2017-02-11] MEDS: LANSOPRAZOLE 30 MG TAB.RAP.DR PO SCH ×2 (05:21→16:44)
[2017-02-11 05:35] LABS: PROTHROMBIN TIME 23.6 SEC (11.4-15.4)
[2017-02-11 05:45] LABS: ANION GAP 6 (5-19); BLOOD UREA NITROGEN 32 mg/dL (7-20); CALCIUM 9.4 mg/dL (8.4-10.2); CARBON DIOXIDE 31 mmol/L (22-30); CHLORIDE 103 mmol/L (98-107); CREATININE RESULT 1.29 mg/dL (0.52-1.25); GLUCOSE 104 mg/dL (75-110); SODIUM 140.2 mmol/L (137-145)
[2017-02-11] MEDS: ENOXAPARIN SODIUM INJ 120 MG/0.8 ML DISP.SYRIN SUBCUT SCH (10:35)
[2017-02-11] MEDS: DOCUSATE SODIUM 100 MG CAPSULE PO SCH (10:37)
[2017-02-11] MEDS: AMLODIPINE BESYLATE 5 MG TABLET PO SCH (10:37)
[2017-02-11] MEDS: FUROSEMIDE 20 MG TABLET PO SCH (10:37)
[2017-02-11] MEDS: GABAPENTIN 300 MG CAPSULE PO SCH (10:37)
[2017-02-11] MEDS: TIOTROPIUM BROMIDE DPI 5 CAP/KIT (18 MCG/CAP) IH SCH (10:38)
[2017-02-11] MEDS: PREDNISONE 20 MG TABLET PO SCH (10:38)
[2017-02-11] MEDS: NICOTINE 21 MG/24 HR PATCH.TD24 TD SCH (10:41)
[2017-02-11] MEDS: NYSTATIN/DEXAMETH/DIPHEN SUSP 120 ML PO SCH ×2 (10:42→13:11)
[2017-02-11] MEDS: NORMAL SALINE 10 ML SDV (SCHEDULED) IV SCH (10:42)
[2017-02-11] MEDS: FLUTICASONE NASAL SPRAY 50 MCG/SPRY 120 SPRAY/16 GM NASL SCH (10:43)
[2017-02-11] MEDS: BUDESONIDE/FORMOTEROL 160-4.5 MCG 60 PUFF/6 GM MDI IH SCH (10:43)
[2017-02-11] MEDS: ALBUTEROL SULFATE 0.083% NEB 2.5 MG/3 ML AMPUL NEB PRN (14:12)
--- NOTE | 2017-02-11 17:51 | PDOC DISCHARGE SUMMARY ---
General - Admit/Disc Date/PCP Admission Date/Primary Care Provider: 02/03/17 21:50 BECKI DIXON MD Discharge Date: 02/11/17 - Discharge Diagnosis (1) Respiratory distress Is this a current diagnosis for this admission?: Yes (2) COPD exacerbation Is this a current diagnosis for this admission?: Yes (3) Congestive heart failure Is this a current diagnosis for this admission?: Yes (4) Venous stasis Is this a current diagnosis for this admission?: Yes (5) Diabetes Is this a current diagnosis for this admission?: Yes (6) Tobacco abuse Is this a current diagnosis for this admission?: Yes (7) Acute bacterial bronchitis Is this a current diagnosis for this admission?: Yes (8) Chronic narcotic dependence Is this a current diagnosis for this admission?: Yes (9) Anxiety Is this a current diagnosis for this admission?: Yes (10) Mural thrombus of cardiac apex Is this a current diagnosis for this admission?: Yes (11) Thyroid mass of unclear etiology Is this a current diagnosis for this admission?: Yes (12) Oral thrush Is this a current diagnosis for this admission?: Yes - Additional Information Resuscitation Status: Full Code Discharge Activity: Activity As Tolerated, Balance Activity w/Rest, Weigh Daily Home Medications: Albuterol Sulfate [Proair Respiclick] 2 puff IH Q6HP PRN 02/04/17 Amlodipine Besylate [Norvasc 5 mg Tablet] 5 mg PO DAILY 02/04/17 Budesonide/Formoterol Fumarate [Symbicort HFA 160-4.5 mcg Inhaler 6 gm] 2 puff IH Q12 02/04/17 Gabapentin [Neurontin 300 mg Capsule] 600 mg PO Q12 02/04/17 Icosapent Ethyl [Vascepa] 2 gm PO Q12 02/04/17 Metformin HCl [Glucophage] 500 mg PO BID 02/04/17 Methadone HCl [Dolophine HCl] 5 mg PO Q8 02/04/17 Omeprazole 40 mg PO DAILY 02/04/17 Oxycodone HCl 15 mg PO Q6HP PRN 02/04/17 Pramipexole Di-HCl [Mirapex] 0.5 mg PO QPM 02/04/17 Zolpidem Tartrate [Ambien] 10 mg PO HSP PRN 02/04/17 Amlodipine Besylate [Norvasc 5 mg Tablet] 5 mg PO DAILY #14 tablet 02/11/17 Furosemide [Lasix 20 mg Tablet] 20 mg PO BID #30 tablet 02/11/17 Prednisone [Deltasone 20 mg Tablet] 20 mg PO DAILY 7 Days 02/11/17 Tiotropium [place] [Spiriva Handihaler 5 Cap/Kit (18 Mcg/Cap)] 1 cap IH DAILY # 30 kit 02/11/17 Warfarin Sodium [Coumadin 7.5 mg Tablet] 5 mg PO QHS #10 tablet 02/11/17 History of Present Illness History of Present Illness: WILNER CONSTANTINO is a 61 year old female WILNER CONSTANTINO is a 61 year old female with a past medical history of COPD, tobacco dependence, diabetes, opiate dependent chronic pain, hypertension and CVA without residual deficits who presents after 4 days of worsening shortness of breath with nonproductive cough and rhinorrhea. Denying fever chest pain nausea vomiting in the emergency room she was found to have tachypnea and rhonchi on exam she is referred to the hospitalist for admission. She denies recent changes in her medication Hospital Course Hospital Course: reason for visit: f/u COPD exac, poss heart failure, mural apical cardiac thrombus hospital course: per other's notes - "WILNER CONSTANTINO is a 61 year old female with a past medical history of COPD, tobacco dependence, diabetes, opiate dependent chronic pain, hypertension and CVA without residual deficits who presents after 4 days of worsening shortness of breath with nonproductive cough and rhinorrhea. Denying fever chest pain nausea vomiting in the emergency room she was found to have tachypnea and rhonchi on exam she is referred to the hospitalist for admission. She denies recent changes in her medication." echo report now available and show apical aneurysm and apical clot in an akinetic apical segment. she has hx of DVT in her youth for reasons she is unaware of, previously treated with coumadin but none recently. she is undergoing care at [facility] for ovarian cancer completing high dose chemo earlier this year. I discussed with Dr Delgado the above findings. She was started on anticoagulation and given her hx and current renal function, will bridge with lovenox 1 mg/kg and start coumadin today. This likely accounts for much of her breathlessness. That being said, she remains a bit bronchospastic and will continue treatment as before for other underlying conditions. she also reports a history of thyroid mass and freely admits she failed to f/u in [place] as directed for further imaging, studies and biopsies as recommended. Her TSH is essentially undetectable, T3/T4 levels not elevated. has steadily progressed and come off BiPAP, the mask makes her too anxious to tolerate at night anyway. she denies chest pain, palpitations, n/v/d, fevers/chills but still has wheezing , improving breathlessness with exertion. she is much less anxious and no longer manic at this point, unclear if related to the steroids started Friday or not though her daughter indicates she has underlying anxiety issues. The burning pain in her feet resolved with resumption of her neurontin. no new complaints to me today. she is bored and wants to go home. given 10mg coumadin last night and INR 1.6 today. Physical Exam Vital Signs: Temp Pulse Resp BP Pulse Ox 97.6 F 83 19 132/66 H 99 02/11/17 16:35 02/11/17 16:35 02/11/17 16:35 02/11/17 16:35 02/11/17 16:35 Intake & Output 02/10/17 02/11/17 02/12/17 06:59 06:59 06:59 Intake Total 1730 1980 1210 Output Total 2 400 Balance 1728 1580 1210 Weight 109.8 kg General appearance: PRESENT: no acute distress, cooperative Head exam: PRESENT: atraumatic Eye exam: PRESENT: EOMI, PERRLA Mouth exam: PRESENT: neck supple Neck exam: PRESENT: full ROM Respiratory exam: PRESENT: clear to auscultation jovan Cardiovascular exam: PRESENT: RRR GI/Abdominal exam: PRESENT: normal bowel sounds, soft Rectal exam: PRESENT: deferred Extremities exam: PRESENT: +2 edema Neurological exam: PRESENT: alert, awake, oriented to person, oriented to place , oriented to time Psychiatric exam: PRESENT: appropriate affect Skin exam: PRESENT: mottled Additional comments: Lower extremities are quite purplish in color. She states this has been present for years and is due to her lower extremity edema. Results Laboratory Results: 02/10/17 06:35 02/11/17 04:00 02/11/17 04:00 Sodium 140.2 Potassium 4.0 Chloride 103 Carbon Dioxide 31 H Anion Gap 6 BUN 32 H Creatinine 1.29 H Est GFR ( Amer) 51 L Est GFR (Non-Af Amer) 42 L Glucose 104 Calcium 9.4 02/05/17 04:08 NT-Pro-B Natriuret Pep 3210 H Impressions: Chest X-Ray 02/03/17 19:14 IMPRESSION: NO ACUTE RADIOGRAPHIC FINDING IN THE CHEST. Plan Discharge Plan: Will be discharged. She is now taking Coumadin. I have decreased her dose to 5 mg as her INR is now trending upward. She will have an INR checked tomorrow morning. She will need to follow-up with her primary care provider this week to readdress and re-dose her Coumadin. She has finished a course of Levaquin for acute bronchitis. She will be sent home on a short course of prednisone. Norvasc was added this hospitalization. She will resume all of her other outpatient medications. Time Spent: Greater than 30 Minutes
[2017-02-11 18:19] VITALS: BP 113/60
== END 2017-02-11 19:27 | disposition home or self-care (01) | DRG 191 ==
LOC: ER 19:10 → EH 21:50 → UNDOADMIN 22:09 → EH 22:09 → 5 02-04 01:04
PROVIDERS: ADMIT Internal Medicine; ATTEND Internal Medicine
PROC: 5A09457 Assistance with Respiratory Ventilation, 24-96 Consecutive Hours, Continuous Positive Airway Pressure (ICD-10-PCS; principal; 2017-02-03)
DX: J44.0 Chronic obstructive pulmonary disease with (acute) lower respiratory infection (principal); B37.0 Candidal stomatitis; I51.3 Intracardiac thrombosis, not elsewhere classified; J44.1 Chronic obstructive pulmonary disease with (acute) exacerbation; I11.0 Hypertensive heart disease with heart failure; I50.9 Heart failure, unspecified; J20.8 Acute bronchitis due to other specified organisms; E11.9 Type 2 diabetes mellitus without complications; G89.29 Other chronic pain; E78.5 Hyperlipidemia, unspecified; M79.7 Fibromyalgia; F41.9 Anxiety disorder, unspecified; I87.8 Other specified disorders of veins; E07.89 Other specified disorders of thyroid; Z79.891 Long term (current) use of opiate analgesic; Z86.73 Personal history of transient ischemic attack (TIA), and cerebral infarction without residual deficits; Z90.710 Acquired absence of both cervix and uterus; Z98.51 Tubal ligation status; Z92.21 Personal history of antineoplastic chemotherapy; Z86.718 Personal history of other venous thrombosis and embolism; Z79.4 Long term (current) use of insulin; Z79.02 Long term (current) use of antithrombotics/antiplatelets; Z85.43 Personal history of malignant neoplasm of ovary
CPT/HCPCS: 36415; 71010; 80048; 81001; 82272; 82803; 82962; 83735; 83880; 84100; 84439; 84443; 84481; 84484; 85025; 85027; 85610; 87040; 87077; 87186; 93005; 93010; 93306; 94640; 94660; 99291; J1642; J1644; J1650; J1815; J1940; J1956; J2405; J2920; J2930; J3475; J3490; J7030; J7512; J7620

== ENCOUNTER → 2017-02-12 | Outpatient (CLI) | payer MEDICARE, MEDICAID ==
[2017-02-12 08:14] LABS: PROTHROMBIN TIME 19.7 SEC (11.4-15.4)
== END ==
LOC: LAB 07:44
PROVIDERS: ATTEND Internal Medicine
DX: Z79.01 Long term (current) use of anticoagulants (principal)
CPT/HCPCS: 36415; 85610

== ENCOUNTER → 2017-02-14 | Outpatient (CLI) | payer MEDICARE, MEDICAID ==
[2017-02-14 15:26] LABS: PROTHROMBIN TIME 20.4 SEC (11.4-15.4)
== END ==
LOC: OD 14:18
PROVIDERS: ATTEND Specialist
DX: E78.4 Other hyperlipidemia (principal); Z79.01 Long term (current) use of anticoagulants
CPT/HCPCS: 36415; 85610

== ENCOUNTER → 2017-02-18 | Outpatient (CLI) | payer MEDICARE, MEDICAID ==
[2017-02-18 15:25] LABS: PROTHROMBIN TIME 21.4 SEC (11.4-15.4)
== END ==
LOC: OD 14:08
PROVIDERS: ATTEND Specialist
DX: Z79.01 Long term (current) use of anticoagulants (principal)
CPT/HCPCS: 36415; 85610

== ENCOUNTER → 2017-02-24 | Outpatient (CLI) | payer MEDICARE, MEDICAID ==
[2017-02-24 16:21] LABS: PROTHROMBIN TIME 40.1 SEC (11.4-15.4)
== END ==
LOC: OD 15:27
PROVIDERS: ATTEND Specialist
DX: I51.3 Intracardiac thrombosis, not elsewhere classified (principal); Z79.01 Long term (current) use of anticoagulants
CPT/HCPCS: 36415; 85610

== ENCOUNTER → 2017-03-07 | Outpatient (CLI) | payer MEDICARE, MEDICAID ==
[2017-03-07 13:08] LABS: PROTHROMBIN TIME 15.6 SEC (11.4-15.4)
== END ==
LOC: OD 11:39
PROVIDERS: ATTEND Specialist
DX: I51.3 Intracardiac thrombosis, not elsewhere classified (principal); Z79.01 Long term (current) use of anticoagulants
CPT/HCPCS: 36415; 85610

== ENCOUNTER → 2017-03-10 | Outpatient (CLI) | payer MEDICARE, MEDICAID ==
[2017-03-10 08:38] LABS: PROTHROMBIN TIME 23.3 SEC (11.4-15.4)
== END ==
LOC: OD 07:08
PROVIDERS: ATTEND Specialist
DX: I51.3 Intracardiac thrombosis, not elsewhere classified (principal); Z79.01 Long term (current) use of anticoagulants
CPT/HCPCS: 36415; 85610

== ENCOUNTER → 2017-03-24 | Outpatient (CLI) | payer MEDICARE, MEDICAID | LOC: OD 14:35 | PROVIDERS: ATTEND Specialist | DX: Z79.01 Long term (current) use of anticoagulants (principal); I51.3 Intracardiac thrombosis, not elsewhere classified | CPT/HCPCS: 36415; 85610 ==

== ENCOUNTER → 2017-04-07 | Outpatient (CLI) | payer MEDICARE, MEDICAID | LOC: OD 13:34 | PROVIDERS: ATTEND Specialist | DX: I51.3 Intracardiac thrombosis, not elsewhere classified (principal); Z79.01 Long term (current) use of anticoagulants | CPT/HCPCS: 36415; 85610 ==

== ENCOUNTER → 2017-04-15 | Outpatient (CLI) | payer MEDICARE, MEDICAID ==
[2017-04-15 08:21] LABS: PROTHROMBIN TIME 21.9 SEC (11.4-15.4)
== END ==
LOC: OD 07:34
PROVIDERS: ATTEND Specialist
DX: I51.3 Intracardiac thrombosis, not elsewhere classified (principal); Z79.01 Long term (current) use of anticoagulants
CPT/HCPCS: 36415; 85610

== ENCOUNTER → 2017-04-28 | Outpatient (CLI) | payer MEDICARE, MEDICAID ==
[2017-04-28 08:28] LABS: PROTHROMBIN TIME 26.3 SEC (11.4-15.4)
== END ==
LOC: OD 07:19
PROVIDERS: ATTEND Specialist
DX: Z79.01 Long term (current) use of anticoagulants (principal); I51.3 Intracardiac thrombosis, not elsewhere classified
CPT/HCPCS: 36415; 85610

== ENCOUNTER → 2017-05-12 | Outpatient (CLI) | payer MEDICARE, MEDICAID ==
[2017-05-12 08:28] LABS: PROTHROMBIN TIME 26.9 SEC (11.4-15.4)
[2017-05-12 14:18] LABS: FREE T3 3.59 pg/mL (2.77-5.27)
[2017-05-12 14:34] LABS: THYROID STIMULATING HORMONE < 0.01 uIU/mL (0.47-4.68)
== END ==
LOC: OD 07:28
PROVIDERS: ATTEND Specialist
DX: I51.3 Intracardiac thrombosis, not elsewhere classified (principal); Z79.01 Long term (current) use of anticoagulants; R53.83 Other fatigue; E03.9 Hypothyroidism, unspecified
CPT/HCPCS: 36415; 84439; 84443; 84481; 85610

== ENCOUNTER 2017-06-21 07:50 | Emergency (ER) | payer MEDICARE, MEDICAID ==
--- NOTE | 2017-06-21 08:16 | ER Document Report ---
ED Cardiac - General Mode of Arrival: Medic Information source: Patient TRAVEL OUTSIDE OF THE [place] IN LAST 30 DAYS: No <BRADY MORAES - Last Filed: 06/21/17 09:14> <MAGGY MARRERO - Last Filed: 06/21/17 13:27> - General Stated Complaint: CHEST PAINS Time Seen by Provider: 06/21/17 07:57 Notes: This 61-year-old female patient comes emergency room by EMS complaining of chest pain. She reports 2 days ago she began having exertional chest pain 1-2 times per day would last 5-10 minutes and resolve with rest. This morning at rest she began having substernal chest pain about 5:30 AM. The pain would not stop, was associated with cold sweats. She called 911. She reports the pain went away after nitroglycerin, she did have some nausea when they gave her aspirin to swallow. At this time some discomfort is returning and she reports her chest feels tight on the left side. She states it is nothing like what she was experiencing earlier this morning. She does have nitroglycerin paste on this time. She was admitted here with COPD in January of this year. At that time an echocardiogram showed suspicion of a left ventricular apical clot on 02/04/2017. She was put on Coumadin, the Coumadin was stopped 2 weeks ago. The echo also showed some pulmonary hypertension. The patient also suffers from type 2 diabetes, hypertension, hyperlipidemia. She did have a stroke in 2011 with some left-sided deficit. She has had kidney stones in the past. She does have fibromyalgia and is on methadone and oxycodone for chronic narcotic dependence. She has never been diagnosed with coronary artery disease in the past that she knows of. She has never had chest pain like this in the past. EKG today shows some new inverted T waves in the lateral leads suggesting ischemic change. ( MAGGY MARRERO) - Related Data Allergies/Adverse Reactions: morphine [Morphine] Allergy (Verified 09/11/16 15:24) Plastic tape Allergy (Uncoded 09/11/16 15:24) Past Medical History - General Information source: Patient - Social History Smoking Status: Current Every Day Smoker Cigarette use (# per day): Yes Frequency of alcohol use: None Drug Abuse: None Lives with: Family Family History: Reviewed & Not Pertinent - Past Medical History Cardiac Medical History: Reports: Hx DVT, Hx Hypercholesterolemia, Hx Hypertension Pulmonary Medical History: Reports: Hx Asthma, Hx Bronchitis, Hx COPD, Hx Pneumonia Neurological Medical History: Reports: Hx Cerebrovascular Accident - CVA 2012 L sided-weakness Endocrine Medical History: Reports: Hx Diabetes Mellitus Type 2 Renal/ Medical History: Reports: Hx Kidney Stones Malignancy Medical History: Reports: Hx Ovarian Cancer Musculoskeltal Medical History: Reports Hx Fibromyalgia Past Surgical History: Reports: Hx Hysterectomy, Hx Kidney (Renal Surgery), Hx Orthopedic Surgery - carpal tunnel, right medial nerve reconstruction, Hx Tubal Ligation - Immunizations Hx Diphtheria, Pertussis, Tetanus Vaccination: Yes Hx Pneumococcal Vaccination: 03/25/12 <BRADY MORAES - Last Filed: 06/21/17 09:14> Review of Systems - Review of Systems Constitutional: See HPI, Diaphoresis EENT: No symptoms reported Cardiovascular: See HPI, Chest pain Respiratory: No symptoms reported Gastrointestinal: See HPI, Nausea Genitourinary: No symptoms reported Female Genitourinary: No symptoms reported Musculoskeletal: No symptoms reported Skin: No symptoms reported Hematologic/Lymphatic: No symptoms reported Neurological/Psychological: No symptoms reported -: Yes All other systems reviewed and negative <BRADY MORAES - Last Filed: 06/21/17 09:14> Physical Exam <BRADY MORAES - Last Filed: 06/21/17 09:14> <MAGGY MARRERO - Last Filed: 06/21/17 13:27> - Vital signs Vitals: Resp 13 06/21/17 08:08 - Notes Notes: Physical Exam: General: Alert, smells of tobacco smoke. HEENT: Normocephalic. Atraumatic. PERRL. Extraocular movements intact. Oropharynx clear. No carotid bruit. Neck: Supple. Non-tender. Respiratory: No respiratory distress. Coarse breath sounds with wheezing throughout consistent with smoking history. Cardiovascular: Regular rate and rhythm. Abdominal: Normal Inspection. Non-tender. No distension. Normal Bowel Sounds. Back: Non-tender. No deformity or step off. Extremities: Moves all four extremities. Upper extremities: Normal inspection. Normal ROM. Lower extremities: Chronic edema. Normal ROM. Neurological: Normal cognition. AAOx4. Normal speech. Psychological: Normal affect. Normal Mood. Skin: Chronic thickening of the skin, (BRADY MORAES) Course - Laboratory Result Diagrams: 06/21/17 08:08 06/21/17 08:08 <BRADY MORAES - Last Filed: 06/21/17 09:14> - Laboratory Result Diagrams: 06/21/17 08:08 06/21/17 08:08 - Diagnostic Test Radiology reviewed: Image reviewed, Reports reviewed - Cardiac enlargement without heart failure - EKG Interpretation by Me EKG shows normal: Sinus rhythm, Desha, Intervals, QRS Complexes. abnormal: ST-T Waves - Diffuse repolarization abnormality suggesting ischemia, biphasic or inverted T waves in leads V2, 3, 4, 5 Rate: Normal - 58 Rhythm: Other - Accelerated junctional escape rhythm When compared to previous EKG there are: Changes noted - Consults VIDANT Time consulted: 12:15 Consulted provider: other - will accept on Dr. Arriaga's service <MAGGY MARRERO - Last Filed: 06/21/17 13:27> - Re-evaluation Re-evalutation: 06/21/17 13:25 At this time the patient is complaining of some left parasternal chest pain. On exam this is found to be chest wall tenderness. She reports that it is quite different from the pain that she had this morning that prompted the 911 call. She states she has not had any more of that particular pain which was clearly cardiac in origin. She seems comforted in knowing that the current pain is musculoskeletal and not related to her heart attack. (MAGGY MARRERO) - Vital Signs Vital signs: Temp Pulse Resp BP Pulse Ox 97.4 F 56 L 14 144/72 H 98 06/21/17 08:14 06/21/17 08:14 06/21/17 12:37 06/21/17 12:37 06/21/17 12:37 - Laboratory Laboratory results interpreted by me: 06/21/17 06/21/17 08:08 08:08 MCV 99 H MCH 34.2 H BUN 33 H Creatinine 1.32 H Est GFR ( Amer) 49 L Est GFR (Non-Af Amer) 41 L Glucose 115 H Total Protein 6.0 L Albumin 3.4 L Critical Care Note - Critical Care Note Total time excluding time spent on procedures (mins): 45 <MAGGY MARRERO - Last Filed: 06/21/17 13:27> Discharge <BRADY MORAES - Last Filed: 06/21/17 09:14> <MAGGY MARRERO - Last Filed: 06/21/17 13:27> - Discharge Clinical Impression: Non-ST elevation myocardial infarction (NSTEMI) Condition: Good Disposition: [facility] Referrals: BECKI DIXON MD [Primary Care Provider] - Follow up as needed Scribe Attestation: 06/21/17 09:34 I personally performed the services described in the documentation, reviewed and edited the documentation which was dictated to the scribe in my presence, and it accurately records my words and actions. (MAGGY MARRERO) Scribe Documentation - Scribe Written by Rosi:: Rosi Dennis, [id number] acting as scribe for :: Ike <BRADY MORAES - Last Filed: 06/21/17 09:14>
[2017-06-21 08:21] LABS: ABSOLUTE BASOPHILS # (AUTO) 0.1 10^3/uL (0.0-0.2); ABSOLUTE EOSINOPHILS # (AUTO) 0.1 10^3/uL (0.0-0.6); ABSOLUTE LYMPHOCYTES (AUTO) 2.2 10^3/uL (0.5-4.7); ABSOLUTE MONOCYTES (AUTO) 0.5 10^3/uL (0.1-1.4); ABSOLUTE NEUT (AUTO) 5.8 10^3/uL (1.7-8.2); HEMOGLOBIN 14.1 g/dL (12.0-15.5); HGB HCT DIFFERENCE 1.3; LYMPHOCYTES % (AUTO) 25.4 % (13-45); MEAN CORPUSCULAR HEMOGLOBIN 34.2 pg (27.0-33.4); MEAN CORPUSCULAR HGB CONC 34.4 g/dL (32.0-36.0); MEAN CORPUSCULAR VOLUME 99 fl (80-97); MONOCYTES % (AUTO) 5.5 % (3-13); RED BLOOD COUNT 4.14 10^6/uL (3.72-5.28); SEGMENTED NEUTROPHILS % (AUTO) 67.1 % (42-78); WHITE BLOOD COUNT 8.6 10^3/uL (4.0-10.5)
[2017-06-21] MEDS ORDERED: NITROGLYCERIN 2% OINTMENT 1 GM PACKET TP ONE (08:28)
[2017-06-21] MEDS ORDERED: CLOPIDOGREL BISULFATE 300 MG TABLET PO ONE (08:28)
[2017-06-21] MEDS ORDERED: HEPARIN SOD (PORCINE) 1,000 UNIT/ML 10 ML VIAL IV ONE (08:29)
[2017-06-21 08:39] LABS: PARTIAL THROMBOPLASTIN TIME 26.3 SEC (23.5-35.8); PROTHROMBIN TIME 13.3 SEC (11.4-15.4)
[2017-06-21 08:41] LABS: ALANINE AMINOTRANSFERASE 34 U/L (9-52); ALBUMIN 3.4 g/dL (3.5-5.0); ALKALINE PHOSPHATASE 82 U/L (38-126); ANION GAP 8 (5-19); ASPARTATE AMINO TRANSFERASE 21 U/L (14-36); BILIRUBIN,DIRECT 0.3 mg/dL (0.0-0.4); BILIRUBIN,TOTAL 0.4 mg/dL (0.2-1.3); BLOOD UREA NITROGEN 33 mg/dL (7-20); CALCIUM 9.7 mg/dL (8.4-10.2); CARBON DIOXIDE 29 mmol/L (22-30); CHLORIDE 107 mmol/L (98-107); CREATINE KINASE 129 U/L (30-135); CREATININE RESULT 1.32 mg/dL (0.52-1.25); GLUCOSE 115 mg/dL (75-110); POTASSIUM 4.5 mmol/L (3.6-5.0); SODIUM 143.5 mmol/L (137-145)
--- NOTE | 2017-06-21 08:42 | EKG REPORT ---
SEVERITY:- ABNORMAL ECG - SINUS RHYTHM REPOL ABNRM SUGGESTS ISCHEMIA ,ANTEROLATERAL LEADS : Confirmed by: Enrico Warner MD 21-Jun-2017 08:41:44
[2017-06-21] MEDS ORDERED: HEPARIN SODIUM,PORCINE/D5W 25,000 UNIT/250 ML RTUINJ IV PRN (08:44)
--- NOTE | 2017-06-21 08:54 | RADIOLOGY REPORT (SQ) ---
EXAM DESCRIPTION: CHEST SINGLE VIEW COMPLETED DATE/TIME: 06/21/2017 8:46 am REASON FOR STUDY: CP COMPARISON: 02/03/2017. NUMBER OF VIEWS: One view. TECHNIQUE: Single frontal radiographic view of the chest acquired. LIMITATIONS: None. FINDINGS: LUNGS AND PLEURA: No opacities, masses or pneumothorax. No pleural effusion. MEDIASTINUM AND HILAR STRUCTURES: Stable contours without developing mass. HEART AND VASCULAR STRUCTURES: Mild cardiomegaly without overt failure. BONES: No acute findings. HARDWARE: Right port via IJ approach, tip to the superior vena cava. OTHER: No other significant finding. IMPRESSION: Cardiac enlargement without failure. TECHNICAL DOCUMENTATION: JOB ID: [id number] [employer]- All Rights Reserved
[2017-06-21] MEDS ORDERED: METOPROLOL TARTRATE PF/INJ 5 MG/5 ML SDV IV ONE ×2 (09:26→12:21)
[2017-06-21 09:58] LABS: APPEARANCE,URINE CLEAR; BILIRUBIN,URINE NEGATIVE (NEGATIVE); GLUCOSE, URINE NEGATIVE (NEGATIVE); KETONES,URINE NEGATIVE (NEGATIVE); LEUKOCYTE ESTERASE,URINE NEGATIVE (NEGATIVE); NITRITE,URINE NEGATIVE (NEGATIVE); PROTEIN,URINE NEGATIVE (NEGATIVE); URINE SPECIFIC GRAVITY 1.011; UROBILINOGEN,URINE NEGATIVE mg/dL (<2.0)
[2017-06-21] MEDS ORDERED: ATORVASTATIN CALCIUM 80 MG TABLET PO ONE (12:19)
[2017-06-21] MEDS ORDERED: METOPROLOL TARTRATE 50 MG TABLET PO ONE (12:59)
[2017-06-21 14:16] VITALS: BP 151/67
== END 2017-06-21 14:20 | disposition short-term general hospital (02) ==
LOC: ER 07:50
DX: I21.4 Non-ST elevation (NSTEMI) myocardial infarction (principal); R61 Generalized hyperhidrosis; R11.0 Nausea; R07.89 Other chest pain; J44.9 Chronic obstructive pulmonary disease, unspecified; E11.9 Type 2 diabetes mellitus without complications; I10 Essential (primary) hypertension; E78.5 Hyperlipidemia, unspecified; M79.7 Fibromyalgia; F11.20 Opioid dependence, uncomplicated; F17.210 Nicotine dependence, cigarettes, uncomplicated; Z86.73 Personal history of transient ischemic attack (TIA), and cerebral infarction without residual deficits; Z88.5 Allergy status to narcotic agent; Z86.718 Personal history of other venous thrombosis and embolism; Z85.43 Personal history of malignant neoplasm of ovary
CPT/HCPCS: 93005; 96376; 94640; 99291; 96375; 96365; 96366; 36415; 82550; 85025; 85610; 85730; 80053; 81001; 84484; 71010; 93010; A9270 ×3; J1644 ×2; J3490

== ENCOUNTER 2017-07-06 20:36 | Emergency (ER) | payer MEDICAID, MEDICARE ==
[2017-07-06 21:26] LABS: ABSOLUTE EOSINOPHILS # (AUTO) 0.2 10^3/uL (0.0-0.6); ABSOLUTE LYMPHOCYTES (AUTO) 2.7 10^3/uL (0.5-4.7); ABSOLUTE MONOCYTES (AUTO) 0.5 10^3/uL (0.1-1.4); ABSOLUTE NEUT (AUTO) 5.7 10^3/uL (1.7-8.2); BASOPHILS % (AUTO) 0.5 % (0-2); EOSINOPHILS % (AUTO) 1.8 % (0-6); HEMATOCRIT 41.6 % (36.0-47.0); HEMOGLOBIN 14.2 g/dL (12.0-15.5); LYMPHOCYTES % (AUTO) 29.5 % (13-45); MEAN CORPUSCULAR HGB CONC 34.1 g/dL (32.0-36.0); MEAN CORPUSCULAR VOLUME 100 fl (80-97); MONOCYTES % (AUTO) 5.9 % (3-13); RED BLOOD COUNT 4.17 10^6/uL (3.72-5.28); RED CELL DISTRIBUTION WIDTH 13.6 % (11.5-14.0); SEGMENTED NEUTROPHILS % (AUTO) 62.3 % (42-78); WHITE BLOOD COUNT 9.1 10^3/uL (4.0-10.5)
[2017-07-06 21:41] LABS: ALANINE AMINOTRANSFERASE 42 U/L (9-52); ALBUMIN 4.1 g/dL (3.5-5.0); ALKALINE PHOSPHATASE 110 U/L (38-126); ANION GAP 14 (5-19); ASPARTATE AMINO TRANSFERASE 26 U/L (14-36); BILIRUBIN,DIRECT 0.5 mg/dL (0.0-0.4); BILIRUBIN,TOTAL 0.5 mg/dL (0.2-1.3); BLOOD UREA NITROGEN 49 mg/dL (7-20); CALCIUM 10.5 mg/dL (8.4-10.2); CARBON DIOXIDE 25 mmol/L (22-30); CHLORIDE 100 mmol/L (98-107); CREATINE KINASE 191 U/L (30-135); CREATININE RESULT 2.38 mg/dL (0.52-1.25); GLUCOSE 134 mg/dL (75-110); POTASSIUM 4.2 mmol/L (3.6-5.0); SODIUM 138.5 mmol/L (137-145); TOTAL PROTEIN 6.6 g/dL (6.3-8.2)
[2017-07-06 21:53] LABS: CREATINE KINASE MB 6.12 ng/mL (<4.55)
[2017-07-06 21:55] LABS: TROPONIN I 0.038 ng/mL
--- NOTE | 2017-07-06 21:58 | ER Document Report ---
ED General - General Chief Complaint: Chest Pain Stated Complaint: CHEST PAIN Time Seen by Provider: 07/06/17 21:06 Mode of Arrival: Medic Information source: Patient Notes: 61 yr old female with recent stent placement 10 days ago presents with complaints of intermittent midsternal chest pain. pt dneies any sob, states it is a sharp pain resolved with nitro., pt notes this pain is different from her cardiac pain from 10 days ago TRAVEL OUTSIDE OF THE [place] IN LAST 30 DAYS: No - HPI Onset: Just prior to arrival Onset/Duration: Sudden Quality of pain: Sharp Severity: Mild Pain Level: 1 Associated symptoms: Chest pain Exacerbated by: Denies Relieved by: Other - nitro Similar symptoms previously: No Recently seen / treated by doctor: No - Related Data Allergies/Adverse Reactions: morphine [Morphine] Allergy (Verified 09/11/16 15:24) Plastic tape Allergy (Uncoded 09/11/16 15:24) Past Medical History - Social History Smoking Status: Never Smoker Cigarette use (# per day): No Chew tobacco use (# tins/day): No Smoking Education Provided: No Family History: Reviewed & Not Pertinent - Past Medical History Cardiac Medical History: Reports: Hx DVT, Hx Hypercholesterolemia, Hx Hypertension Denies: Hx Heart Attack Pulmonary Medical History: Reports: Hx Asthma, Hx Bronchitis, Hx COPD, Hx Pneumonia Denies: Hx Tuberculosis Neurological Medical History: Reports: Hx Cerebrovascular Accident - CVA 2012 L sided-weakness. Denies: Hx Seizures Endocrine Medical History: Reports: Hx Diabetes Mellitus Type 2 Renal/ Medical History: Reports: Hx Kidney Stones. Denies: Hx End Stage Renal Disease, Hx Peritoneal Dialysis Malignancy Medical History: Reports: Hx Ovarian Cancer Musculoskeltal Medical History: Denies Hx Arthritis, Reports Hx Fibromyalgia Psychiatric Medical History: Denies: Hx Depression Past Surgical History: Reports: Hx Hysterectomy, Hx Kidney (Renal Surgery), Hx Orthopedic Surgery - carpal tunnel, right medial nerve reconstruction, Hx Tubal Ligation. Denies: Hx Appendectomy, Hx Bowel Surgery, Hx Section, Hx Cholecystectomy, Hx Coronary Artery Bypass Graft, Hx Gastric Bypass Surgery, Hx Herniorrhaphy, Hx Mastectomy, Hx Pacemaker, Hx Tonsillectomy - Immunizations Hx Diphtheria, Pertussis, Tetanus Vaccination: Yes Hx Pneumococcal Vaccination: 03/25/12 Review of Systems - Review of Systems Notes: REVIEW OF SYSTEMS: CONSTITUTIONAL : Denies fever, chills, or sweats. Denies recent illness. EENT: Denies eye, ear, throat, or mouth pain or symptoms. Denies nasal or sinus congestion or discharge. Denies throat, tongue, or mouth swelling or difficulty swallowing. CARDIOVASCULAR: Admits to chest pain RESPIRATORY: Denies cough, cold, or chest congestion. Denies shortness of breath, difficulty breathing, or wheezing. GASTROINTESTINAL: Denies abdominal pain or distention. Denies nausea, vomiting , or diarrhea. Denies blood in vomitus, stools, or per rectum. Denies black, tarry stools. Denies constipation. GENITOURINARY: Denies difficulty urinating, painful urination, burning, frequency, blood in urine, or discharge. FEMALE GENITOURINARY: Denies vaginal bleeding, heavy or abnormal periods, irregular periods. Denies vaginal discharge or odor. MUSCULOSKELETAL: Denies back or neck pain or stiffness. Denies joint pain or swelling. SKIN: Denies rash, lesions or sores. HEMATOLOGIC : Denies easy bruising or bleeding. LYMPHATIC: Denies swollen, enlarged glands. NEUROLOGICAL: Denies confusion or altered mental status. Denies passing out or loss of consciousness. Denies dizziness or lightheadedness. Denies headache. Denies weakness or paralysis or loss of use of either side. Denies problems with gait or speech. Denies sensory loss, numbness, or tingling. Denies seizures. PSYCHIATRIC: Denies anxiety or stress. Denies depression, suicidal ideation, or homicidal ideation. ALL OTHER SYSTEMS REVIEWED AND NEGATIVE. PHYSICAL EXAMINATION: GENERAL: Well-appearing, well-nourished and in no acute distress. HEAD: Atraumatic, normocephalic. EYES: Pupils equal round and reactive to light, extraocular movements intact, conjunctiva are normal. ENT: Nares patent, oropharynx clear without exudates. Moist mucous membranes. NECK: Normal range of motion, supple without lymphadenopathy LUNGS: Breath sounds clear to auscultation bilaterally and equal. No wheezes rales or rhonchi. HEART: Regular rate and rhythm without murmurs ABDOMEN: Soft, nontender, nondistended abdomen. No guarding, no rebound. No masses appreciated. Female : deferred Musculoskeletal: Normal range of motion, no pitting or edema. No cyanosis. NEUROLOGICAL: Cranial nerves grossly intact. Normal speech, normal gait. Normal sensory, motor exams PSYCH: Normal mood, normal affect. SKIN: Warm, Dry, normal turgor, no rashes or lesions noted. Dictation was performed using [employer] voice recognition software Physical Exam - Vital signs Vitals: Temp Pulse Resp BP Pulse Ox 97.3 F 73 18 128/69 H 98 07/06/17 20:55 07/06/17 20:55 07/06/17 20:55 07/06/17 20:55 07/06/17 20:55 Course - Re-evaluation Re-evalutation: Patient is noted to have acute renal injury, creatinine is noted to be 2.4, she was given IV fluids, given that chest pain is occurring 10 days after stent placement I do believe the patient should be transferred back to her chemical dependency therapist's 07/06/17 21:58 vidant cardiac paged 07/06/17 22:25 Cardio fellow accepts transfer on behalf of dr Bingham 07/07/17 03:24 - Vital Signs Vital signs: Temp Pulse Resp BP Pulse Ox 97.3 F 73 19 149/65 H 96 07/06/17 20:55 07/06/17 20:55 07/07/17 01:00 07/06/17 21:15 07/07/17 01:00 - Laboratory Result Diagrams: 07/06/17 21:12 07/06/17 21:12 Laboratory results interpreted by me: 07/06/17 07/06/17 07/06/17 21:12 21:12 21:12 MCV 100 H MCH 34.0 H BUN 49 H Creatinine 2.38 H Est GFR ( Amer) 25 L Est GFR (Non-Af Amer) 21 L Glucose 134 H Calcium 10.5 H Direct Bilirubin 0.5 H Creatine Kinase 191 H CK-MB (CK-2) 6.12 H - Diagnostic Test Radiology reviewed: Image reviewed, Reports reviewed - EKG Interpretation by Me EKG shows normal: Sinus rhythm, Venus, Intervals, QRS Complexes Critical Care Note - Critical Care Note Total time excluding time spent on procedures (mins): 35 Comments: 35 minutes of critical care time spent in direct contact evaluating and reevaluating the patient, treating symptoms, reviewing labs and studies and speaking with family and consultants excluding any procedures Discharge - Discharge Clinical Impression: Acute kidney injury Chest pain Qualifiers: Chest pain type: unspecified Qualified Code(s): R07.9 - Chest pain, unspecified Coronary artery disease Qualifiers: Coronary Disease-Associated Artery/Lesion type: unspecified vessel or lesion type [place] vs. transplanted heart: [place] heart Associated angina: without angina Qualified Code(s): I25.10 - Atherosclerotic heart disease of [place] coronary artery without angina pectoris Condition: Stable Disposition: [facility] Referrals: BECKI DIXON MD [Primary Care Provider] - Follow up as needed
[2017-07-06 21:59] VITALS: BP 149/65
--- NOTE | 2017-07-06 22:32 | RADIOLOGY REPORT (SQ) ---
EXAM DESCRIPTION: CHEST SINGLE VIEW COMPLETED DATE/TIME: 07/06/2017 10:10 pm REASON FOR STUDY: cp COMPARISON: 06/21/2017. NUMBER OF VIEWS: One view. TECHNIQUE: Single frontal radiographic view of the chest acquired. LIMITATIONS: None. FINDINGS: LUNGS AND PLEURA: No opacities, masses or pneumothorax. No pleural effusion. MEDIASTINUM AND HILAR STRUCTURES: No masses. Contour normal. HEART AND VASCULAR STRUCTURES: Heart normal in size. Normal vasculature. BONES: No acute findings. HARDWARE: Right port. Tip to the superior vena cava. OTHER: No other significant finding. IMPRESSION: NO SIGNIFICANT RADIOGRAPHIC FINDING IN THE CHEST. TECHNICAL DOCUMENTATION: JOB ID: [id number]- All Rights Reserved
[2017-07-07] MEDS ORDERED: NORMAL SALINE 1000 ML 1,000 ML IV ONE (00:42)
--- NOTE | 2017-07-07 06:02 | EKG REPORT ---
SEVERITY:- ABNORMAL ECG - SINUS RHYTHM ABNORMAL T, CONSIDER ISCHEMIA, ANT-LAT LEADS : Confirmed by: Joyce Hare MD 07-Jul-2017 06:01:47
== END 2017-07-07 01:56 | disposition short-term general hospital (02) ==
LOC: ER 20:36
DX: N17.9 Acute kidney failure, unspecified (principal); R07.9 Chest pain, unspecified; I25.10 Atherosclerotic heart disease of native coronary artery without angina pectoris
CPT/HCPCS: 93005; 99291; 96360; 36415; 82553; 82550; 85025; 85610; 80053; 84484; 71010; 93010; J7030

== ENCOUNTER → 2017-07-22 | Outpatient (CLI) | payer MEDICARE, MEDICAID ==
--- NOTE | 2017-07-22 23:02 | EKG REPORT ---
SEVERITY:- NORMAL ECG - SINUS RHYTHM NONSPECIFIC ST-T CHANGES ANTERIOR AND LATERAL CHEST LEADS : Confirmed by: Gloria August 22-Jul-2017 23:01:19
== END ==
LOC: OD 16:04
PROVIDERS: ATTEND Physician Assistant
DX: M47.817 Spondylosis without myelopathy or radiculopathy, lumbosacral region (principal); M51.36 Other intervertebral disc degeneration, lumbar region; M54.32 Sciatica, left side; M46.1 Sacroiliitis, not elsewhere classified; Z79.891 Long term (current) use of opiate analgesic
CPT/HCPCS: 93005; 93010

== ENCOUNTER → 2018-01-27 | Outpatient (CLI) | payer MEDICARE, MEDICAID ==
[2018-01-27 10:08] LABS: ABSOLUTE EOSINOPHILS # (AUTO) 0.2 10^3/uL (0.0-0.6); ABSOLUTE LYMPHOCYTES (AUTO) 2.1 10^3/uL (0.5-4.7); ABSOLUTE MONOCYTES (AUTO) 0.5 10^3/uL (0.1-1.4); ABSOLUTE NEUT (AUTO) 3.8 10^3/uL (1.7-8.2); BASOPHILS % (AUTO) 0.6 % (0-2); EOSINOPHILS % (AUTO) 2.5 % (0-6); HEMATOCRIT 40.4 % (36.0-47.0); HEMOGLOBIN 14.1 g/dL (12.0-15.5); LYMPHOCYTES % (AUTO) 31.7 % (13-45); MEAN CORPUSCULAR HGB CONC 34.8 g/dL (32.0-36.0); MEAN CORPUSCULAR VOLUME 101 fl (80-97); MONOCYTES % (AUTO) 7.9 % (3-13); PLATELET COUNT 268 10^3/uL (150-450); RED BLOOD COUNT 4.01 10^6/uL (3.72-5.28); RED CELL DISTRIBUTION WIDTH 13.3 % (11.5-14.0); SEGMENTED NEUTROPHILS % (AUTO) 57.3 % (42-78); TOTAL CELLS COUNTED % (AUTO) 100 %; WHITE BLOOD COUNT 6.7 10^3/uL (4.0-10.5)
[2018-01-27 10:34] LABS: ALANINE AMINOTRANSFERASE 20 U/L (9-52); ALBUMIN 3.6 g/dL (3.5-5.0); ALKALINE PHOSPHATASE 102 U/L (38-126); ANION GAP 11 (5-19); ASPARTATE AMINO TRANSFERASE 16 U/L (14-36); BILIRUBIN,DIRECT 0.4 mg/dL (0.0-0.4); BILIRUBIN,TOTAL 0.4 mg/dL (0.2-1.3); BLOOD UREA NITROGEN 37 mg/dL (7-20); CALCIUM 9.8 mg/dL (8.4-10.2); CARBON DIOXIDE 26 mmol/L (22-30); CHLORIDE 106 mmol/L (98-107); CHOLESTEROL 222.03 mg/dL (0-200); GLUCOSE 98 mg/dL (75-110); POTASSIUM 4.6 mmol/L (3.6-5.0); SODIUM 142.6 mmol/L (137-145); TOTAL PROTEIN 5.9 g/dL (6.3-8.2); TRIGLYCERIDES 248 mg/dL (<150)
[2018-01-27 10:45] LABS: DIRECT LDL 126 mg/dL (<100)
[2018-01-27 10:46] LABS: VLDL CHOLESTEROL 49.6 mg/dL (10-31)
== END ==
LOC: OD 09:12
PROVIDERS: ATTEND Internal Medicine
DX: E11.22 Type 2 diabetes mellitus with diabetic chronic kidney disease (principal); N18.3 Chronic kidney disease, stage 3 (moderate); I50.9 Heart failure, unspecified; I25.10 Atherosclerotic heart disease of native coronary artery without angina pectoris; Z95.5 Presence of coronary angioplasty implant and graft
CPT/HCPCS: 36415; 80053; 80061; 85025

== ENCOUNTER → 2018-03-23 | Outpatient (CLI) | payer MEDICARE, MEDICAID ==
--- NOTE | 2018-03-23 15:11 | RADIOLOGY REPORT (SQ) ---
EXAM DESCRIPTION: U/S RETROPERITON (RENAL/AORTA) COMPLETED DATE/TIME: 03/23/2018 2:51 pm REASON FOR STUDY: CKD IV (N18.4) N18.4 CHRONIC KIDNEY DISEASE, STAGE 4 (SEVERE) COMPARISON: None. TECHNIQUE: Dynamic and static grayscale images acquired of the kidneys and bladder and recorded on P ACS. Additional selected color Doppler and spectral images recorded. LIMITATIONS: None. FINDINGS: RIGHT KIDNEY: 10.6 cm. Increased cortical echogenicity. No solid or suspicious masses . No hydronephrosis. No calcifications. LEFT KIDNEY: 10.0 cm. Increased cortical echogenicity. No solid or suspicious masses. No hydro nephrosis. No calcifications. BLADDER: No masses. OTHER: No other significant finding. IMPRESSION: CHRONIC MEDICAL RENAL DISEASE. NO HYDRONEPHROSIS. TECHNICAL DOCUMENTATION: JOB ID: [id number] [employer]- All Rights Reserved Reading location - IP/workstation name: [email or web address]
== END ==
LOC: RAD 14:12
PROVIDERS: ATTEND Internal Medicine Nephrology
DX: E11.22 Type 2 diabetes mellitus with diabetic chronic kidney disease (principal); I12.9 Hypertensive chronic kidney disease with stage 1 through stage 4 chronic kidney disease, or unspecified chronic kidney disease; N18.4 Chronic kidney disease, stage 4 (severe)
CPT/HCPCS: 76770

== ENCOUNTER → 2018-05-13 | Outpatient (CLI) | payer MEDICARE, MEDICAID ==
[2018-05-13 15:57] LABS: ABSOLUTE EOSINOPHILS # (AUTO) 0.1 10^3/uL (0.0-0.6); ABSOLUTE LYMPHOCYTES (AUTO) 2.5 10^3/uL (0.5-4.7); ABSOLUTE MONOCYTES (AUTO) 0.6 10^3/uL (0.1-1.4); ABSOLUTE NEUT (AUTO) 4.3 10^3/uL (1.7-8.2); BASOPHILS % (AUTO) 0.5 % (0-2); EOSINOPHILS % (AUTO) 1.7 % (0-6); HEMATOCRIT 39.5 % (36.0-47.0); HEMOGLOBIN 13.3 g/dL (12.0-15.5); LYMPHOCYTES % (AUTO) 33.1 % (13-45); MEAN CORPUSCULAR HGB CONC 33.8 g/dL (32.0-36.0); MEAN CORPUSCULAR VOLUME 101 fl (80-97); MONOCYTES % (AUTO) 7.3 % (3-13); PLATELET COUNT 246 10^3/uL (150-450); RED BLOOD COUNT 3.92 10^6/uL (3.72-5.28); RED CELL DISTRIBUTION WIDTH 14.2 % (11.5-14.0); SEGMENTED NEUTROPHILS % (AUTO) 57.4 % (42-78); TOTAL CELLS COUNTED % (AUTO) 100 %; WHITE BLOOD COUNT 7.6 10^3/uL (4.0-10.5)
[2018-05-13 16:09] LABS: APPEARANCE,URINE SLIGHTLY-CLOUDY; BILIRUBIN,URINE NEGATIVE (NEGATIVE); COLOR,URINE YELLOW; GLUCOSE, URINE NEGATIVE (NEGATIVE); KETONES,URINE NEGATIVE (NEGATIVE); LEUKOCYTE ESTERASE,URINE NEGATIVE (NEGATIVE); NITRITE,URINE NEGATIVE (NEGATIVE); PROTEIN,URINE 30 mg/dL (NEGATIVE)
[2018-05-13 16:10] LABS: ALBUMIN 3.5 g/dL (3.5-5.0); ANION GAP 5 (5-19); BLOOD UREA NITROGEN 27 mg/dL (7-20); CARBON DIOXIDE 29 mmol/L (22-30); CHLORIDE 107 mmol/L (98-107); GLUCOSE 103 mg/dL (75-110); POTASSIUM 5.2 mmol/L (3.6-5.0); SODIUM 141.1 mmol/L (137-145)
[2018-05-15 16:39] LABS: CREATININE URINE 167.8 mg/dL (Not Estab.); MICROALBUMIN URINE 77.5 ug/mL (Not Estab.)
== END ==
LOC: OD 15:04
PROVIDERS: ATTEND Internal Medicine Nephrology
DX: I12.9 Hypertensive chronic kidney disease with stage 1 through stage 4 chronic kidney disease, or unspecified chronic kidney disease (principal); E11.22 Type 2 diabetes mellitus with diabetic chronic kidney disease; N18.4 Chronic kidney disease, stage 4 (severe)
CPT/HCPCS: 36415; 80048; 81001; 82040; 82043; 82306; 82570; 83970; 84100; 85025

== ENCOUNTER → 2018-08-20 | Outpatient (CLI) | payer MEDICARE, MEDICAID ==
[2018-08-20 12:40] LABS: APPEARANCE,URINE SLIGHTLY-CLOUDY; BILIRUBIN,URINE NEGATIVE (NEGATIVE); COLOR,URINE YELLOW; GLUCOSE, URINE NEGATIVE (NEGATIVE); KETONES,URINE NEGATIVE (NEGATIVE); LEUKOCYTE ESTERASE,URINE NEGATIVE (NEGATIVE); NITRITE,URINE NEGATIVE (NEGATIVE); PROTEIN,URINE NEGATIVE (NEGATIVE); URINE SPECIFIC GRAVITY 1.011; UROBILINOGEN,URINE NEGATIVE mg/dL (<2.0)
[2018-08-20 12:44] LABS: ANION GAP 7 (5-19); BLOOD UREA NITROGEN 21 mg/dL (7-20); CALCIUM 9.9 mg/dL (8.4-10.2); CARBON DIOXIDE 29 mmol/L (22-30); CHLORIDE 103 mmol/L (98-107); GLUCOSE 93 mg/dL (75-110); POTASSIUM 4.4 mmol/L (3.6-5.0); SODIUM 138.7 mmol/L (137-145)
--- NOTE | 2018-08-20 12:44 | EKG REPORT ---
SEVERITY:- BORDERLINE ECG - SINUS RHYTHM BORDERLINE T WAVE ABNORMALITIES : Confirmed by: Enrico Warner MD 20-Aug-2018 12:43:32
[2018-08-21 11:41] LABS: CREATININE URINE 66.6 mg/dL (Not Estab.); MICROALBUMIN URINE <3.0 ug/mL (Not Estab.)
== END ==
LOC: OD 11:28
PROVIDERS: ATTEND Internal Medicine Nephrology
DX: N18.4 Chronic kidney disease, stage 4 (severe) (principal); N25.81 Secondary hyperparathyroidism of renal origin; E55.9 Vitamin D deficiency, unspecified; E11.9 Type 2 diabetes mellitus without complications; Z79.891 Long term (current) use of opiate analgesic
CPT/HCPCS: 36415; 80048; 81001; 82043; 82306; 82570; 83970; 93005; 93010

== ENCOUNTER → 2018-11-30 | Outpatient (CLI) | payer MEDICARE, MEDICAID ==
[2018-11-30 11:51] LABS: ALBUMIN 3.2 g/dL (3.5-5.0); BLOOD UREA NITROGEN 27 mg/dL (7-20); CALCIUM 9.7 mg/dL (8.4-10.2); CHLORIDE 108 mmol/L (98-107); GLUCOSE 123 mg/dL (75-110); PHOSPHORUS 3.5 mg/dL (2.5-4.5); POTASSIUM 5.1 mmol/L (3.6-5.0)
[2018-11-30 11:56] LABS: CARBON DIOXIDE 30 mmol/L (22-30); SODIUM 140.8 mmol/L (137-145)
[2018-11-30 12:01] LABS: ANION GAP 3 (5-19)
[2018-12-01 11:38] LABS: CREATININE URINE 13.8 mg/dL (Not Estab.)
[2018-12-01 14:43] LABS: MICROALBUMIN URINE <3.0 ug/mL (Not Estab.)
== END ==
LOC: OD 11:03
PROVIDERS: ATTEND Internal Medicine Nephrology
DX: E11.22 Type 2 diabetes mellitus with diabetic chronic kidney disease (principal); I12.9 Hypertensive chronic kidney disease with stage 1 through stage 4 chronic kidney disease, or unspecified chronic kidney disease; N18.3 Chronic kidney disease, stage 3 (moderate)
CPT/HCPCS: 36415; 80069; 82043; 82306; 82570; 83970

== ENCOUNTER 2019-01-15 10:41 | Emergency (ER) | payer MEDICARE, MEDICAID ==
--- NOTE | 2019-01-15 11:17 | ER Document Report ---
ED Medical Screen (RME) - General Chief Complaint: Abdominal Pain Stated Complaint: SIDE PAIN Time Seen by Provider: 01/15/19 11:15 Primary Care Provider: ANA CUETO MD [Primary Care Provider] - Follow up as needed Notes: Patient is a 63-year-old female presents to the emergency department for left hip and left side pain for last week. Patient is denying any vomiting diarrhea fevers. Patient is denying any dysuria. Patient's denying any injury to her left hip. Patient states she does have a history of kidney stones and stage III chronic kidney disease not on dialysis. GENERAL: Alert, interacts well. No acute distress. ABDOMEN: Soft, left lower quadrant abdominal pain. Non-distended. Bowel sounds present in all 4 quadrants. Physical exam somewhat limited due to patient sitting in a chair in triage. I have greeted and performed a rapid initial assessment of this patient. A comprehensive ED assessment and evaluation of the patient, analysis of test results and completion of the medical decision making process will be conducted by additional ED providers. This medical record was dictated with voice recognizing software. There may be grammatical, syntax errors that are unintended. TRAVEL OUTSIDE OF THE [place] IN LAST 30 DAYS: No - Related Data Allergies/Adverse Reactions: morphine [Morphine] Allergy (Verified 01/15/19 10:43) Plastic tape Allergy (Uncoded 01/15/19 10:43) Past Medical History - Social History Chew tobacco use (# tins/day): No Frequency of alcohol use: None Drug Abuse: None - Past Medical History Cardiac Medical History: Reports: Hx DVT, Hx Hypercholesterolemia, Hx Hypertension Denies: Hx Heart Attack Pulmonary Medical History: Reports: Hx Asthma, Hx Bronchitis, Hx COPD, Hx Pneumonia Denies: Hx Tuberculosis Neurological Medical History: Reports: Hx Cerebrovascular Accident - CVA 2012 L sided-weakness. Denies: Hx Seizures Endocrine Medical History: Reports: Hx Diabetes Mellitus Type 2 Renal/ Medical History: Reports: Hx Kidney Stones. Denies: Hx End Stage Renal Disease, Hx Peritoneal Dialysis Malignancy Medical History: Reports: Hx Ovarian Cancer Musculoskeltal Medical History: Denies Hx Arthritis, Reports Hx Fibromyalgia Psychiatric Medical History: Denies: Hx Depression Past Surgical History: Reports: Hx Hysterectomy, Hx Kidney (Renal Surgery), Hx Orthopedic Surgery - carpal tunnel, right medial nerve reconstruction, Hx Tubal Ligation. Denies: Hx Appendectomy, Hx Bowel Surgery, Hx Section, Hx Cholecystectomy, Hx Coronary Artery Bypass Graft, Hx Gastric Bypass Surgery, Hx Herniorrhaphy, Hx Mastectomy, Hx Pacemaker, Hx Tonsillectomy - Immunizations Hx Diphtheria, Pertussis, Tetanus Vaccination: Yes Physical Exam - Vital signs Vitals: Temp Pulse Resp BP Pulse Ox 97.4 F 63 24 H 181/64 H 98 01/15/19 10:48 01/15/19 10:48 01/15/19 10:48 01/15/19 10:48 01/15/19 10:48 Course - Vital Signs Vital signs: Temp Pulse Resp BP Pulse Ox 97.4 F 63 24 H 181/64 H 98 01/15/19 10:48 01/15/19 10:48 01/15/19 10:48 01/15/19 10:48 01/15/19 10:48 Doctor's Discharge - Discharge Referrals: ANA CUETO MD [Primary Care Provider] - Follow up as needed
[2019-01-15 11:44] LABS: APPEARANCE,URINE CLOUDY; BILIRUBIN,URINE NEGATIVE (NEGATIVE); GLUCOSE, URINE NEGATIVE (NEGATIVE); KETONES,URINE NEGATIVE (NEGATIVE); LEUKOCYTE ESTERASE,URINE LARGE (NEGATIVE); NITRITE,URINE POSITIVE (NEGATIVE); PROTEIN,URINE 100 mg/dL (NEGATIVE)
--- NOTE | 2019-01-15 11:45 | RADIOLOGY REPORT (SQ) ---
EXAM DESCRIPTION: HIP LEFT AP/LATERAL COMPLETED DATE/TIME: 01/15/2019 11:31 am REASON FOR STUDY: pain COMPARISON: None. NUMBER OF VIEWS: Two views. TECHNIQUE: AP pelvis and additional frog-leg view of the left hip. LIMITATIONS: None. FINDINGS: MINERALIZATION: Normal. PRIMARY HIP: No fracture or dislocation. No worrisome bone lesions. OPPOSITE HIP: No fracture or dislocation. No worrisome bone lesions. PUBIS AND ISCHIUM: No fracture. PELVIS: No fracture. SACRUM: No fracture or dislocation. No worrisome bone lesions. LOWER LUMBAR SPINE: No fracture or dislocation. No worrisome bone lesions. No significant disc disea se. SOFT TISSUES: No findings. OTHER: There is calcification in the lower abdomen overlying the lower lumbar spine and extending lef t of midline. Possibly aortic calcification and cannot exclude aneurysmal dilation. IMPRESSION: 1. NEGATIVE STUDY OF THE LEFT HIP AND PELVIS. NO ACUTE POST-TRAUMATIC CHANGES. NO EXPLANATION FOR PA IN. 2. CALCIFICATION IN THE LOWER ABDOMEN OVERLYING THE LOWER LUMBAR SPINE. POSSIBLY AORTIC AND CANNOT E XCLUDE AORTIC ANEURYSM. RECOMMEND FOLLOW-UP WITH ABDOMINAL AORTIC ULTRASOUND. COMMENT: Pelvic fractures are often occult on plain radiographs. If strong clinical suspicion for fracture, recommend CT or MR. TECHNICAL DOCUMENTATION: JOB ID: [id number] [employer]- All Rights Reserved Reading location - IP/workstation name: [email or web address]
[2019-01-15 11:49] LABS: COLOR,URINE YELLOW
[2019-01-15 13:19] LABS: ABSOLUTE EOSINOPHILS # (AUTO) 0.1 10^3/uL (0.0-0.6); ABSOLUTE LYMPHOCYTES (AUTO) 2.3 10^3/uL (0.5-4.7); ABSOLUTE MONOCYTES (AUTO) 0.4 10^3/uL (0.1-1.4); ABSOLUTE NEUT (AUTO) 3.6 10^3/uL (1.7-8.2); BASOPHILS % (AUTO) 0.6 % (0-2); EOSINOPHILS % (AUTO) 1.6 % (0-6); HEMATOCRIT 42.5 % (36.0-47.0); HEMOGLOBIN 14.3 g/dL (12.0-15.5); LYMPHOCYTES % (AUTO) 35.2 % (13-45); MEAN CORPUSCULAR HEMOGLOBIN 33.8 pg (27.0-33.4); MEAN CORPUSCULAR HGB CONC 33.6 g/dL (32.0-36.0); MEAN CORPUSCULAR VOLUME 101 fl (80-97); MONOCYTES % (AUTO) 6.8 % (3-13); PLATELET COUNT 192 10^3/uL (150-450); RED BLOOD COUNT 4.23 10^6/uL (3.72-5.28); RED CELL DISTRIBUTION WIDTH 13.9 % (11.5-14.0); SEGMENTED NEUTROPHILS % (AUTO) 55.8 % (42-78); TOTAL CELLS COUNTED % (AUTO) 100 %; WHITE BLOOD COUNT 6.4 10^3/uL (4.0-10.5)
[2019-01-15 13:38] LABS: ALANINE AMINOTRANSFERASE 19 U/L (9-52); ALBUMIN 3.3 g/dL (3.5-5.0); ALKALINE PHOSPHATASE 88 U/L (38-126); ANION GAP 6 (5-19); ASPARTATE AMINO TRANSFERASE 18 U/L (14-36); BILIRUBIN,DIRECT 0.4 mg/dL (0.0-0.4); BILIRUBIN,TOTAL 0.5 mg/dL (0.2-1.3); BLOOD UREA NITROGEN 32 mg/dL (7-20); CALCIUM 9.9 mg/dL (8.4-10.2); CARBON DIOXIDE 24 mmol/L (22-30); CHLORIDE 110 mmol/L (98-107); GLUCOSE 79 mg/dL (75-110); POTASSIUM 4.7 mmol/L (3.6-5.0); SODIUM 139.6 mmol/L (137-145); TOTAL PROTEIN 5.8 g/dL (6.3-8.2)
--- NOTE | 2019-01-15 14:16 | ER Document Report ---
ED General - General Chief Complaint: Abdominal Pain Stated Complaint: SIDE PAIN Time Seen by Provider: 01/15/19 11:15 Primary Care Provider: ANA CUETO MD [ACTIVE STAFF] - Follow up as needed Notes: Patient is a 63-year-old female with a history of stage III kidney disease, type 2 diabetes, hypertension, high cholesterol, [place] with cardiac stent placement x1 and a history of ovarian cancer who presents to the emergency department with a chief complaint of left hip pain x1 week. Patient states that the left hip pain is intermittent and stabbing in nature. Patient denies injury. Patient states that she has noticed the left hip pain is worse with walking or twisting. Patient states that applying heat to the area does help. Patient denies numbness or tingling into the lower extremities. Patient denies abdominal pain, nausea diarrhea, or fever. Patient does state that she has had a strong smell to her urine as well as burning with urination over the past few days. TRAVEL OUTSIDE OF THE [place] IN LAST 30 DAYS: No - Related Data Allergies/Adverse Reactions: morphine [Morphine] Allergy (Verified 01/15/19 10:43) Plastic tape Allergy (Uncoded 01/15/19 10:43) Past Medical History - Social History Smoking Status: Current Every Day Smoker Chew tobacco use (# tins/day): No Frequency of alcohol use: None Drug Abuse: None Family History: Reviewed & Not Pertinent Patient has suicidal ideation: No Patient has homicidal ideation: No - Past Medical History Cardiac Medical History: Reports: Hx DVT, Hx Hypercholesterolemia, Hx Hypertension Denies: Hx Heart Attack Pulmonary Medical History: Reports: Hx Asthma, Hx Bronchitis, Hx COPD, Hx Pneumonia Denies: Hx Tuberculosis Neurological Medical History: Reports: Hx Cerebrovascular Accident - CVA 2012 L sided-weakness. Denies: Hx Seizures Endocrine Medical History: Reports: Hx Diabetes Mellitus Type 2 Renal/ Medical History: Reports: Hx Kidney Stones. Denies: Hx End Stage Renal Disease, Hx Peritoneal Dialysis Malignancy Medical History: Reports: Hx Ovarian Cancer Musculoskeletal Medical History: Denies Hx Arthritis, Reports Hx Fibromyalgia Psychiatric Medical History: Denies: Hx Depression Past Surgical History: Reports: Hx Hysterectomy, Hx Kidney (Renal Surgery), Hx Orthopedic Surgery - carpal tunnel, right medial nerve reconstruction, Hx Tubal Ligation. Denies: Hx Appendectomy, Hx Bowel Surgery, Hx Section, Hx Cholecystectomy, Hx Coronary Artery Bypass Graft, Hx Gastric Bypass Surgery, Hx Herniorrhaphy, Hx Mastectomy, Hx Pacemaker, Hx Tonsillectomy - Immunizations Hx Diphtheria, Pertussis, Tetanus Vaccination: Yes Hx Pneumococcal Vaccination: 03/25/12 Review of Systems - Review of Systems Constitutional: No symptoms reported EENT: No symptoms reported Cardiovascular: No symptoms reported Respiratory: No symptoms reported Gastrointestinal: No symptoms reported Genitourinary: No symptoms reported Female Genitourinary: No symptoms reported Musculoskeletal: See HPI Skin: No symptoms reported Hematologic/Lymphatic: No symptoms reported Neurological/Psychological: No symptoms reported Physical Exam - Vital signs Vitals: Temp Pulse Resp BP Pulse Ox 97.4 F 63 24 H 181/64 H 98 01/15/19 10:48 01/15/19 10:48 01/15/19 10:48 01/15/19 10:48 01/15/19 10:48 Interpretation: Hypertensive - Notes Notes: GENERAL: Well-appearing, well-nourished and in no acute distress. HEAD: Atraumatic, normocephalic. EYES: Pupils equal round and reactive to light, extraocular movements intact, sclera anicteric, conjunctiva are normal. ENT: Nares patent, oropharynx clear without exudates. Moist mucous membranes. NECK: Normal range of motion, supple without lymphadenopathy or JVD. LUNGS: Breath sounds clear to auscultation bilaterally and equal. No wheezes rales or rhonchi. HEART: Regular rate and rhythm without murmurs, rubs or gallops. ABDOMEN: Soft, round, mildy tender in left lower quadrant, normoactive bowel sounds. No guarding, no rebound. No masses appreciated. BACK: No cervical, thoracic, lumbar midline tenderness. No saddle anesthesia, normal distal neurovascular exam. GENITOURINARY: Deferred. EXTREMITIES: Normal range of motion, pitting + 1 edema without cellulitis to left lower extremity (pt. states this has been present since lymph nodes were removed with her hysterectomy years ago), Tenderness to the left iliac crest and left hip. No bruising, crepitus, or deformity noted. NEUROLOGICAL: Cranial nerves II through XII grossly intact. Normal speech, normal gait. PSYCH: Normal mood, normal affect. SKIN: Warm, Dry, normal turgor, no rashes or lesions noted. Course - Re-evaluation Re-evalutation: 01/15/19 14:13 Patient's left hip x-ray was read as negative study of the left hip and pelvis. There is no acute posttraumatic changes. It was noted she has pelvic ossi fication in the lower abdomen overlying the lower lumbar spine. There is possibly aortic and cannot exclude aortic aneurysm. They recommend a follow-up abdominal aortic ultrasound. Patient states that she does have a aortic aneurysm in which she follows Dr. Finley at [facility] every 6 months. She reports that it is a stage IV aortic aneurysm. 01/15/19 16:42 Upon reevaluation patient is resting comfortably on stretcher. Did discuss ultrasound results of the aorta which includes of 4.6 cm abdominal aortic aneurysm with patient. Patient states that she has a follow-up appointment with Dr. Finley in February. Informed patient to call his office on Friday to inform him of the ultrasound results. Informed patient that the cause of her left hip pain is unknown, although this could be degenerative changes such as arthritis, I did discuss follow up with PCP or orthopedics for this continued pain. I did discuss these findings and my physical assessment with my supervising Dr. Irving who agrees with discharge plan. 01/15/19 17:[address] Amezcua at [facility] regarding patient aortic aneurysm. He states that in Aug 2018 the patient's aneurysm was 4.5 cm, he states he will arrange follow up with patient on Friday. Informed patient to call her physician at [facility] if she does not hear from them. We will treat urinary tract infection. Given strict return precautions to include chest pain, shortness of breath, dizziness, abdominal pain, or any change in signs or symptoms. At discharge patient's blood pressure slightly elevated, patient states that she missed her dose of blood pressure meds since she was in the emergency department. Informed patient to take the medication when she gets home. - Vital Signs Vital signs: Temp Pulse Resp BP Pulse Ox 97.7 F 61 16 176/60 H 98 01/15/19 17:24 01/15/19 17:24 01/15/19 17:24 01/15/19 17:24 01/15/19 17:24 - Laboratory Result Diagrams: 01/15/19 13:08 01/15/19 13:08 Laboratory results interpreted by me: 01/15/19 01/15/1901/15/19 11:20 13:08 13:08 MCV 101 H MCH 33.8 H Chloride 110 H BUN 32 H Creatinine 2.01 H Est GFR ( Amer) 30 L Est GFR (Non-Af Amer) 25 L Total Protein 5.8 L Albumin 3.3 L Urine Protein 100 H Urine Nitrite POSITIVE H Urine Urobilinogen 2.0 H Ur Leukocyte Esterase LARGE H Discharge - Discharge Clinical Impression: Left hip pain Abdominal aortic aneurysm Qualifiers: Presence of rupture: without rupture Qualified Code(s): I71.4 - Abdominal aortic aneurysm, without rupture Urinary tract infection Qualifiers: Urinary tract infection type: site unspecified Hematuria presence: without hematuria Qualified Code(s): N39.0 - Urinary tract infection, site not specified Condition: Stable Disposition: HOME, SELF-CARE Instructions: Cephalexin ([facility]), Urinary Tract Infection ([facility]) Additional Instructions: Today you were seen in the emergency department for left hip pain. Your x-ray of the hip was negative. Your urine did show an infection which we are going to treat you with Keflex for. Your ultrasound of the abdominal aorta did show an aneurysm measuring 4.6 cm. A copy of your ultrasound was printed and given to you at discharge. Please call your cardiovascular surgeon Dr. Finley on Friday to make him aware of this to see if there is any change from your previous visit in August. Please return to the emergency department for any worsening signs or symptoms to include chest pain, shortness of breath, severe abdominal pain or swelling, fever, altered level of consciousness or any other concerning signs or symptoms. Urinary Tract Infection Your evaluation indicates that you have a urinary tract infection. This is due to germs growing in the bladder. This is a common problem. This infection usually responds quickly to antibiotics. Your antibiotic should be taken exactly as prescribed. Drink plenty of fluids -- three to four quarts a day. Occasionally, a bladder anesthetic will be prescribed to help stop the feeling of urgency until the antibiotic has a chance to clear the infection. This may cause your urine to be dark orange. Certain urine infections require a culture. If the doctor obtained a culture, the results will be back in two days. You should call to see if a change in treatment is needed. A repeat urinalysis after you finish treatment is often recommended. The physician will let you know if further testing is required. Call the doctor if you develop fever, chills, flank pain, inability to urinate, or blood in the urine. Prescriptions: Cephalexin Monohydrate [Keflex 500 mg Capsule] 500 mg PO BID 5 Days #14 capsule Referrals: ANA CUETO MD [ACTIVE STAFF] - Follow up as needed
--- NOTE | 2019-01-15 16:12 | RADIOLOGY REPORT (SQ) ---
EXAM DESCRIPTION: U/S ABD AORTIC SCREENING COMPLETED DATE/TIME: 01/15/2019 3:57 pm REASON FOR STUDY: known AAA, abdominal pain COMPARISON: None. TECHNIQUE: Static and dynamic grayscale images acquired of the aorta and stored on PACs. Selected co madi Doppler and spectral images recorded. LIMITATIONS: None. FINDINGS: AORTIC CALIBER MAXIMAL PROXIMAL: 2.1 cm. MID: 1.9 cm. DISTAL: 4.6 cm. ILIAC DIAMETER The iliac arteries were obscured by bowel gas. IMPRESSION: 4.6 cm aneurysm of the infrarenal abdominal aorta. COMMENT: Aortic aneurysm imaging followup: 4.5-5.4 cm Every 6 months, vascular consultation recommended *Based upon the Society for Vascular Surgery Guidelines: J Vasc Surg. 2009 Oct;50(4 Suppl):S2-49 *For aortas of maximum diameter of 2.6-2.9 cm meeting the criteria for AAA (?1.5 x proximal normal se gment) TECHNICAL DOCUMENTATION: JOB ID: [id number] [employer]- All Rights Reserved Reading location - IP/workstation name: [email or web address]
[2019-01-15] MEDS ORDERED: CEPHALEXIN 500 MG CAPSULE PO ONE (16:52)
[2019-01-15 17:28] VITALS: BP 176/60
== END 2019-01-15 17:31 | disposition home or self-care (01) ==
LOC: ER 10:41
DX: M25.552 Pain in left hip (principal); I71.4 Abdominal aortic aneurysm, without rupture; N39.0 Urinary tract infection, site not specified; I12.9 Hypertensive chronic kidney disease with stage 1 through stage 4 chronic kidney disease, or unspecified chronic kidney disease; E11.22 Type 2 diabetes mellitus with diabetic chronic kidney disease; N18.3 Chronic kidney disease, stage 3 (moderate); E78.00 Pure hypercholesterolemia, unspecified; J44.9 Chronic obstructive pulmonary disease, unspecified; Z90.710 Acquired absence of both cervix and uterus; Z85.43 Personal history of malignant neoplasm of ovary; Z88.8 Allergy status to other drugs, medicaments and biological substances; F17.200 Nicotine dependence, unspecified, uncomplicated; Z86.718 Personal history of other venous thrombosis and embolism; Z98.51 Tubal ligation status
CPT/HCPCS: 99284; 36415; 87086; 85025; 87088; 80053; 81001; 87186; 73502; 76706; A9270

== ENCOUNTER 2019-03-10 22:02 | Inpatient (IN) | payer MEDICARE, MEDICAID ==
[2019-03-10] MEDS ORDERED: ACETAMINOPHEN 325 MG TABLET PO ONE (22:47)
[2019-03-10] MEDS ORDERED: FENTANYL CITRATE INJ/PF 100 MCG/2 ML AMPUL IV ONE (22:50)
--- NOTE | 2019-03-10 22:52 | ER Document Report ---
ED General - General Stated Complaint: WEAKNESS Time Seen by Provider: 03/10/19 22:40 Notes: Patient is a 63-year-old female who presents emergency department with a chief complaint of weakness, fever, and a cough. She states that she has some shortness of breath and difficulty breathing. Patient has had some weakness for the past 3 days and a cough for the past week. She admits to having some yellow sputum. She is brought in by EMS and her temperature was 102.7. She was given 650 mg of Tylenol. Patient has a past medical history of OR with stent placement, diabetes mellitus, hypertension, uterine aneurysm, stage IV kidney failure, chronic back pain, ovarian cancer in remission for the past 5 years, asthma, and CHF. Patient smokes a pack a day. TRAVEL OUTSIDE OF THE [place] IN LAST 30 DAYS: No - Related Data Allergies/Adverse Reactions: morphine [Morphine] Allergy (Verified 01/15/19 10:43) Plastic tape Allergy (Uncoded 01/15/19 10:43) Past Medical History - General Information source: Patient, Relative - Social History Smoking Status: Current Every Day Smoker Family History: Reviewed & Not Pertinent - Past Medical History Cardiac Medical History: Reports: Hx DVT, Hx Hypercholesterolemia, Hx Hypertension Denies: Hx Heart Attack Pulmonary Medical History: Reports: Hx Asthma, Hx Bronchitis, Hx COPD, Hx Pneumonia Denies: Hx Tuberculosis Neurological Medical History: Reports: Hx Cerebrovascular Accident - CVA 2012 L sided-weakness. Denies: Hx Seizures Endocrine Medical History: Reports: Hx Diabetes Mellitus Type 2 Renal/ Medical History: Reports: Hx Kidney Stones. Denies: Hx End Stage Renal Disease, Hx Peritoneal Dialysis Malignancy Medical History: Reports: Hx Ovarian Cancer Musculoskeletal Medical History: Denies Hx Arthritis, Reports Hx Fibromyalgia Psychiatric Medical History: Denies: Hx Depression Past Surgical History: Reports: Hx Hysterectomy, Hx Kidney (Renal Surgery), Hx Orthopedic Surgery - carpal tunnel, right medial nerve reconstruction, Hx Tubal Ligation. Denies: Hx Appendectomy, Hx Bowel Surgery, Hx Section, Hx Cholecystectomy, Hx Coronary Artery Bypass Graft, Hx Gastric Bypass Surgery, Hx Herniorrhaphy, Hx Mastectomy, Hx Pacemaker, Hx Tonsillectomy - Immunizations Hx Diphtheria, Pertussis, Tetanus Vaccination: Yes Hx Pneumococcal Vaccination: 03/25/12 Review of Systems - Review of Systems Notes: REVIEW OF SYSTEMS: CONSTITUTIONAL : See HPI. EENT: Denies eye, ear, throat, or mouth pain, discharge, or symptoms. Denies nasal or sinus congestion. CARDIOVASCULAR: Denies chest pain. RESPIRATORY: See HPI. GASTROINTESTINAL: Denies nausea, vomiting, and diarrhea. Denies abdominal pain. Denies constipation. GENITOURINARY: Denies difficulty urinating, burning, blood in urine, urgency or frequency. MUSCULOSKELETAL: Denies neck and back pain. Denies joint pain or swelling. SKIN: Denies rash, itchiness, or lesions HEMATOLOGIC : Denies easy bruising or bleeding. LYMPHATIC: Denies swollen, painful, enlarged glands. NEUROLOGICAL: Denies no numbness or tingling denies weakness. Denies headache. Denies altered mental status. Denies alteration in speech. PSYCHIATRIC: Denies stress, anxiety, alteration in sleep patterns, or depression. All other systems reviewed and negative. Physical Exam - Vital signs Vitals: Temp Pulse Resp BP Pulse Ox 101.5 F H 88 22 H 147/107 H 99 03/10/19 22:02 03/10/19 22:02 03/10/19 22:02 03/10/19 22:02 03/10/19 22:02 - Notes Notes: PHYSICAL EXAMINATION: GENERAL: Morbidly obese, no acute distress. HEAD: Normocephalic, atraumatic. EYES: PERRL, conjunctiva normal, all extraocular movements intact, sclera nonicteric ENT: Dry mucous membranes. NECK: Supple, no noticeable swelling, redness, rash. Normal range of motion. LUNGS: Equal breath sounds bilaterally and clear to auscultation. No wheezes rales or rhonchi. CARDIOVASCULAR: S1-S2, regular rate, regular rhythm. Radial pulses 2+, normal. ABDOMEN: Normoactive bowel sounds. Soft, nontender, no guarding, no rebound tenderness, and no masses palpated. EXTREMITIES: Normal strength and range of motion, 2+ pitting edema. No cyanosis. NEUROLOGICAL: Moves all extremities upon command. Strength 5/5 in all extremities. PSYCH: Normal mood, normal affect. SKIN: Warm, dry. No rash, lesions, ulcerations noted. Normal skin turgor. Course - Re-evaluation Re-evalutation: 03/11/19 02:15 Patient's chest x-ray is clear. Her labs show that she has a urinary tract infection. Her troponin is mildly elevated, but she does have elevated troponins in the past. We will add on a BNP. Patient does not have a leukocytosis at this time. Other chemistries are unremarkable. 03/11/19 05:15 Patient had increased shortness of breath and she became tachycardic. Breathing treatment was ordered and she was given it. She states that she sometimes gets this way when she feels short of breath from her asthma. I had Dr. Mcqueen to evaluate the patient. We will repeat a chest x-ray and give 40 mg of Lasix. Patient also felt nauseous and started to vomit a little. She will receive some Zofran. 03/11/19 07:00 I reevaluated the patient and she states that she feels better after receiving the Lasix. 03/11/19 07:27 I saw have not received the official read from [facility] about the patient's chest x-ray. I called them and they stated that the patient's x-ray will be next to be read. 03/11/19 07:34 Patient's chest x-ray shows no change from before, but due to the patient still being tachypneic and requiring oxygen, I will attempted to call the hospitalist. There is no answer at this time. I will try again later. 03/11/19 07:59 I spoke with Conchis Artis NP. The patient will be admitted to [facility]. - Vital Signs Vital signs: Temp Pulse Resp BP Pulse Ox 99.6 F 68 21 H 133/46 H 94 03/12/19 20:00 03/12/19 20:00 03/12/19 20:00 03/12/19 20:00 03/12/19 20:00 - Laboratory Result Diagrams: 03/11/19 01:30 03/12/19 06:00 Laboratory results interpreted by me: 03/10/19 03/11/19 03/11/19 23:46 01:30 01:30 RBC 3.50 L Hct 35.1 L MCV 101 H MCH 34.5 H Plt Count 147 L Chloride 108 H Creatinine 1.40 H Est GFR ( Amer) 46 L Est GFR (Non-Af Amer) 38 L Glucose 111 H NT-Pro-B Natriuret Pep Total Protein 5.2 L Albumin 2.8 L Urine Protein 100 H Urine Blood MODERATE H Urine Nitrite POSITIVE H Urine Urobilinogen 4.0 H Ur Leukocyte Esterase LARGE H 03/11/19 01:30 RBC Hct MCV MCH Plt Count Chloride Creatinine Est GFR ( Amer) Est GFR (Non-Af Amer) Glucose NT-Pro-B Natriuret Pep 9260 H Total Protein Albumin Urine Protein Urine Blood Urine Nitrite Urine Urobilinogen Ur Leukocyte Esterase - EKG Interpretation by Me Additional EKG results interpreted by me: 03/10/19 22:11 Sinus rhythm. Rate 82. AR 156; QRS 88; QT 376; QTc 439. No ST elevations or depressions. 03/11/19 03:37 Sinus rhythm. Rate 64. AR 188; QRS 100; QTc 500; QTc 516. No ST elevations or depressions noted. Discharge - Discharge Clinical Impression: Fever Qualifiers: Fever type: unspecified Qualified Code(s): R50.9 - Fever, unspecified Urinary tract infection Qualifiers: Urinary tract infection type: acute cystitis Hematuria presence: with hematuria Qualified Code(s): N30.01 - Acute cystitis with hematuria CHF exacerbation Qualifiers: Heart failure type: unspecified Qualified Code(s): I50.9 - Heart failure, unspecified Condition: Fair Disposition: ADMITTED INPATIENT Admitting Provider: Chan (Hospitalist) Unit Admitted: [facility]
--- NOTE | 2019-03-10 23:43 | RADIOLOGY REPORT (SQ) ---
EXAM DESCRIPTION: XR CHEST 1 VIEW COMPLETED DATE/TME: 03/10/2019 22:47 CLINICAL HISTORY: 63 years, Female, cough/fever COMPARISON: Multiple priors, most recent from 07/06/2017 NUMBER OF VIEWS: One TECHNIQUE: Single frontal view of the chest was obtained LIMITATIONS: None. FINDINGS: Right IJ approach central venous port catheter tip is located in the SVC. Cardiac and mediastinal contours are stable. Lungs are clear. No pleural effusion or pneumothorax. IMPRESSION: No acute disease. copyright 2010 [employer]- All Rights Reserved
[2019-03-11 00:18] LABS: APPEARANCE,URINE TURBID; BILIRUBIN,URINE NEGATIVE (NEGATIVE); COLOR,URINE AMBER; GLUCOSE, URINE NEGATIVE (NEGATIVE); KETONES,URINE NEGATIVE (NEGATIVE); LEUKOCYTE ESTERASE,URINE LARGE (NEGATIVE); NITRITE,URINE POSITIVE (NEGATIVE); PROTEIN,URINE 100 mg/dL (NEGATIVE); URINE SPECIFIC GRAVITY 1.014
[2019-03-11 01:40] LABS: ABSOLUTE MONOCYTES (AUTO) 0.8 10^3/uL (0.1-1.4); ABSOLUTE NEUT (AUTO) 4.6 10^3/uL (1.7-8.2); BASOPHILS % (AUTO) 0.5 % (0-2); EOSINOPHILS % (AUTO) 0.1 % (0-6); HEMATOCRIT 35.1 % (36.0-47.0); HEMOGLOBIN 12.1 g/dL (12.0-15.5); LYMPHOCYTES % (AUTO) 15.8 % (13-45); MEAN CORPUSCULAR HEMOGLOBIN 34.5 pg (27.0-33.4); MEAN CORPUSCULAR HGB CONC 34.4 g/dL (32.0-36.0); MEAN CORPUSCULAR VOLUME 101 fl (80-97); MONOCYTES % (AUTO) 11.9 % (3-13); PLATELET COUNT 147 10^3/uL (150-450); RED CELL DISTRIBUTION WIDTH 13.8 % (11.5-14.0); SEGMENTED NEUTROPHILS % (AUTO) 71.7 % (42-78); TOTAL CELLS COUNTED % (AUTO) 100 %; WHITE BLOOD COUNT 6.4 10^3/uL (4.0-10.5)
[2019-03-11] MEDS ORDERED: FENTANYL CITRATE INJ/PF 100 MCG/2 ML AMPUL ONE (01:48)
[2019-03-11 01:51] LABS: ALANINE AMINOTRANSFERASE 17 U/L (9-52); ALBUMIN 2.8 g/dL (3.5-5.0); ALKALINE PHOSPHATASE 65 U/L (38-126); ASPARTATE AMINO TRANSFERASE 14 U/L (14-36); BILIRUBIN,DIRECT 0.4 mg/dL (0.0-0.4); BILIRUBIN,TOTAL 0.7 mg/dL (0.2-1.3); BLOOD UREA NITROGEN 16 mg/dL (7-20); CALCIUM 9.1 mg/dL (8.4-10.2); CHLORIDE 108 mmol/L (98-107); CREATINE KINASE 86 U/L (30-135); GLUCOSE 111 mg/dL (75-110); POTASSIUM 4.3 mmol/L (3.6-5.0); TOTAL PROTEIN 5.2 g/dL (6.3-8.2)
[2019-03-11 01:57] LABS: ANION GAP 5 (5-19); CARBON DIOXIDE 25 mmol/L (22-30)
[2019-03-11 02:07] LABS: VENOUS BLOOD BASE EXCESS -0.7 mmol/L; VENOUS BLOOD HCO3 23.6 mmol/L (20-32); VENOUS BLOOD PCO2 37.9 mmHg (35-63); VENOUS BLOOD PH 7.41 (7.30-7.42)
[2019-03-11 02:08] LABS: CREATINE KINASE MB 1.32 ng/mL (<4.55)
[2019-03-11 02:11] LABS: TROPONIN I 0.067 ng/mL
[2019-03-11] MEDS ORDERED: OXYCODONE HCL SR 10 MG TABLET PO ONE ×2 (03:46→03:59)
[2019-03-11] MEDS ORDERED: OXYCODONE HCL IR 5 MG TABLET PO ONE (03:59)
[2019-03-11] MEDS ORDERED: ALBUTEROL SULFATE 0.083% NEB 2.5 MG/3 ML AMPUL NEB ONE (04:51)
[2019-03-11] MEDS ORDERED: FUROSEMIDE INJ/PF 40 MG/4 ML SDV IV ONE (05:15)
[2019-03-11] MEDS ORDERED: ONDANSETRON HCL INJ/PF 4 MG/2 ML SDV IV ONE (05:18)
[2019-03-11] MEDS ORDERED: CEFTRIAXONE INJ 1000 MG VIAL IV ONE (05:18)
--- NOTE | 2019-03-11 07:30 | RADIOLOGY REPORT (SQ) ---
EXAM DESCRIPTION: XR CHEST 1 VIEW COMPLETED DATE/TME: 03/11/2019 05:14 CLINICAL HISTORY: 63 years, Female, shortness of breath COMPARISON: 03/10/2019 NUMBER OF VIEWS: One TECHNIQUE: AP view the chest LIMITATIONS: None. FINDINGS: The lungs are clear. The heart size is stable. There is no pneumothorax or pleural effusion. The right chest wall port is stable in position. The bones are unchanged. IMPRESSION: No significant change compared to the prior exam. copyright 2010 [employer]- All Rights Reserved
[2019-03-11] MEDS ORDERED: ONDANSETRON HCL INJ/PF 4 MG/2 ML SDV IV PRN (09:08)
[2019-03-11] MEDS ORDERED: MAG HYDROX/AL HYDROX/SIMETH SUSP 30 ML UDCUP PO PRN (09:08)
[2019-03-11] MEDS ORDERED: ACETAMINOPHEN 325 MG TABLET PO PRN (09:08)
[2019-03-11] MEDS ORDERED: DEXTROSE 40% GEL 15 GM TUBE PO PRN ×2 (09:12)
[2019-03-11] MEDS ORDERED: DEXTROSE 50%-WATER 25 GM/50 ML DISP.SYRIN IV PRN ×2 (09:12)
[2019-03-11] MEDS ORDERED: GLUCAGON,HUMAN RECOMB 1 MG INJ IM PRN (09:12)
[2019-03-11] MEDS: FUROSEMIDE INJ/PF 40 MG/4 ML SDV IV SCH ×2 (09:44→22:20)
[2019-03-11] MEDS: DOCUSATE SODIUM 100 MG CAPSULE PO SCH (09:45)
[2019-03-11] MEDS ORDERED: ALBUTEROL SULFATE 0.083% NEB 2.5 MG/3 ML AMPUL NEB PRN (10:31)
[2019-03-11] MEDS: IPRATROPIUM/ALBUTEROL 0.5-2.5 MG/3 ML AMPUL NEB SCH ×2 (12:08→19:29)
[2019-03-11] MEDS: OXYCODONE HCL IR 5 MG TABLET PO PRN ×2 (12:16→18:34)
[2019-03-11] MEDS: RANOLAZINE 500 MG TAB.SR.12H PO SCH ×2 (12:23→22:33)
[2019-03-11] MEDS: PARICALCITOL 1 MCG CAPSULE PO SCH (12:23)
[2019-03-11] MEDS: ISOSORBIDE MONONITRATE 60 MG TAB.ER.24H PO SCH (12:23)
[2019-03-11] MEDS: METOPROLOL SUCCINATE 25 MG TAB.SR.24H PO SCH (12:23)
[2019-03-11] MEDS: GABAPENTIN 300 MG CAPSULE PO SCH ×2 (12:23→22:19)
[2019-03-11] MEDS: METHADONE HCL 10 MG TABLET PO SCH ×2 (12:25→22:33)
[2019-03-11] MEDS: INSULIN LISPRO 100 UNIT/ML 3 ML VIAL SUBCUT SCH ×3 (12:28→23:12)
[2019-03-11] MEDS: FLUTICASONE/UMECLIDIN/VILANTER 100-62.5-25 MCG/DOSE IH SCH (13:42)
[2019-03-11] MEDS: HEPARIN SOD (PORCINE) 5,000 UNIT/ML 1 ML VIAL SUBCUT SCH ×2 (15:37→22:18)
--- NOTE | 2019-03-11 18:07 | PDOC H&P ---
History of Present Illness Admission Date/PCP: 03/11/19 08:31 BECKI DIXON MD Patient complains of: Shortness of breath, malaise History of Present Illness: WILNER CONSTANTINO is a 63 year old female with a past medical history significant for CHF, [place] (stent x1), hypertension, hyperlipidemia, DM 2, CKD 3, and CVA without residual deficits who presented to the emergency department today with a complaint of gradually worsening dyspnea, orthopnea, generalized malaise, and subjective fever at home. Evaluation in the emergency department revealed temperature of 101.5, tachypnea, baseline creatinine (1.40), indeterminate troponin at 0.067, elevated proBNP of 9000, urinalysis positive for urinary tract infection, initial chest x-ray demonstrating and urinalysis positive for urinary tract infection. Patient was referred to the hospitalist service for admission and management of CHF exacerbation and urinary tract infection. Past Medical History Cardiac Medical History: Reports: Coronary Artery Disease, DVT, Myocardial Infarction - Stent x1, Hyperlipidema, Hypertension Pulmonary Medical History: Reports: Asthma, Bronchitis, Chronic Obstructive Pulmonary Disease (COPD), Pneumonia Denies: Tuberculosis Neurological Medical History: Reports: Ischemic CVA Denies: Seizures Endocrine Medical History: Reports: Diabetes Mellitus Type 2 Denies: Hypothyroidism Renal/ Medical History: Reports: Chronic Kidney Disease Denies: End Stage Renal Disease Malignancy Medical History: Reports: Ovarian Cancer Musculoskeltal Medical History: Reports: Fibromyalgia Denies: Arthritis Psychiatric Medical History: Denies: Depression Hematology: Denies: Anemia Past Surgical History Past Surgical History: Reports: Cardiac Catheterization, Hysterectomy, Orthopedic Surgery - carpal tunnel, right medial nerve reconstruction, Tubal Ligation Denies: Appendectomy, Section, Cholecystectomy, Coronary Artery Bypass Graft, Gastric Bypass Surgery, Herniorrhaphy, Mastectomy, Pacemaker, Tonsillectomy Social History Information Source: Patient Lives with: Alone Smoking Status: Current Every Day Smoker Cigarettes Packs Per Day: 1 Number of Years Smokin Frequency of Alcohol Use: None Hx Recreational Drug Use: No Hx Prescription Drug Abuse: No - Advance Directive Resuscitation Status: Full Code Surrogate healthcare decision maker:: The patient's daughter, Leslie Draper Family History Family History: Reviewed & Not Pertinent Parental Family History Reviewed: Yes Children Family History Reviewed: Yes Sibling(s) Family History Reviewed.: Yes Medication/Allergy Home Medications: Albuterol Sulfate [Proair Respiclick] 2 puff IH Q6HP PRN 02/04/17 Gabapentin [Neurontin 300 mg Capsule] 600 mg PO Q12 02/04/17 Methadone HCl [Dolophine HCl] 5 mg PO Q12 02/04/17 Omeprazole 40 mg PO DAILY 02/04/17 Oxycodone HCl 15 mg PO Q6HP PRN MDD 3 tabs 02/04/17 Docusate Sodium [Colace 100 mg Capsule] 100 mg PO BIDP PRN 03/11/19 Fluticasone/Umeclidin/Vilanter [Trelegy 100-62.5-25 Mcg Ellipta 14 Dose/Dpi] 1 inh IH DAILY 03/11/19 Furosemide [Lasix 40 mg Tablet] 40 mg PO BID 03/11/19 Glipizide [Glipizide Xl] 5 mg PO DAILY 03/11/19 Isosorbide Mononitrate [Imdur 60 mg Tablet.er] 60 mg PO DAILY 03/11/19 Metoprolol Succinate [Toprol Xl 25 mg Tab.sr] 12.5 mg PO DAILY 03/11/19 Paricalcitol 1 mcg PO DAILY 03/11/19 Potassium Chloride [Klor-Con M10] 10 meq PO BID 03/11/19 Ranolazine [Ranolazine ER] 500 mg PO Q12 03/11/19 Allergies/Adverse Reactions: morphine [Morphine] Allergy (Verified 01/15/19 10:43) Plastic tape Allergy (Uncoded 01/15/19 10:43) Review of Systems Constitutional: PRESENT: chills, fatigue, fever(s). ABSENT: headache(s), weight gain, weight loss Eyes: ABSENT: visual disturbances Ears: ABSENT: hearing changes Cardiovascular: PRESENT: dyspnea on exertion, orthropnea. ABSENT: chest pain, edema, palpitations Respiratory: PRESENT: dyspnea. ABSENT: cough, hemoptysis Gastrointestinal: ABSENT: abdominal pain, constipation, diarrhea, hematemesis, hematochezia, nausea, vomiting Genitourinary: ABSENT: dysuria, hematuria Musculoskeletal: ABSENT: joint swelling Integumentary: ABSENT: rash, wounds Neurological: ABSENT: abnormal gait, abnormal speech, confusion, dizziness, focal weakness, syncope Psychiatric: ABSENT: anxiety, depression, homidical ideation, suicidal ideation Endocrine: ABSENT: cold intolerance, heat intolerance, polydipsia, polyuria Hematologic/Lymphatic: ABSENT: easy bleeding, easy bruising Physical Exam Vital Signs: Temp Pulse Resp BP Pulse Ox 97.8 F 65 20 92/65 L 94 03/11/19 15:24 03/11/19 15:24 03/11/19 15:24 03/11/19 15:24 03/11/19 15:24 Intake & Output 03/10/19 03/11/19 03/12/19 06:59 06:59 06:59 Weight 106.594 kg 96.5 kg General appearance: PRESENT: no acute distress, cooperative, disheveled, obese, well-developed, well-nourished Head exam: PRESENT: atraumatic, normocephalic Eye exam: PRESENT: conjunctiva pink, EOMI, PERRLA. ABSENT: scleral icterus Ear exam: PRESENT: normal external ear exam Mouth exam: PRESENT: moist, tongue midline Neck exam: ABSENT: carotid bruit, JVD, lymphadenopathy, thyromegaly Respiratory exam: PRESENT: crackles - Bibasilar, prolonged expiratory phas, symmetrical, wheezes - Right upper field; expiratory wheezing. ABSENT: rales, rhonchi Cardiovascular exam: PRESENT: RRR, +S1, +S2. ABSENT: diastolic murmur, rubs, systolic murmur Pulses: PRESENT: normal dorsalis pedis pul Vascular exam: PRESENT: normal capillary refill GI/Abdominal exam: PRESENT: normal bowel sounds, soft. ABSENT: distended, guarding, mass, organolmegaly, rebound, tenderness Rectal exam: PRESENT: deferred Extremities exam: PRESENT: full ROM, pedal edema - +1 bilaterally. ABSENT: calf tenderness, clubbing Neurological exam: PRESENT: alert, awake, oriented to person, oriented to place, oriented to time, oriented to situation, CN II-XII grossly intact. ABSENT: motor sensory deficit Psychiatric exam: PRESENT: appropriate affect, normal mood. ABSENT: homicidal ideation, suicidal ideation Skin exam: PRESENT: dry, intact, warm. ABSENT: cyanosis, rash Results Laboratory Results: 03/11/19 01:30 03/11/19 01:30 03/10/19 03/11/19 03/11/19 23:46 01:30 01:30 WBC 6.4 RBC 3.50 L Hgb 12.1 Hct 35.1 L MCV 101 H MCH 34.5 H MCHC 34.4 RDW 13.8 Plt Count 147 L Seg Neutrophils % 71.7 Lymphocytes % 15.8 Monocytes % 11.9 Eosinophils % 0.1 Basophils % 0.5 Absolute Neutrophils 4.6 Absolute Lymphocytes 1.0 Absolute Monocytes 0.8 Absolute Eosinophils 0.0 Absolute Basophils 0.0 VBG pH VBG pCO2 VBG HCO3 VBG Base Excess Sodium 137.5 Potassium 4.3 Chloride 108 H Carbon Dioxide 25 Anion Gap 5 BUN 16 Creatinine 1.40 H Est GFR ( Amer) 46 L Est GFR (Non-Af Amer) 38 L Glucose 111 H Calcium 9.1 Total Bilirubin 0.7 AST 14 ALT 17 Alkaline Phosphatase 65 Total Protein 5.2 L Albumin 2.8 L Urine Color PATRICIA Urine Appearance TURBID Urine pH 5.0 Ur Specific [place] 1.014 Urine Protein 100 H Urine Glucose (UA) NEGATIVE Urine Ketones NEGATIVE Urine Blood MODERATE H Urine Nitrite POSITIVE H Ur Leukocyte Esterase LARGE H Urine WBC (Auto) >182 Urine RBC (Auto) 22 03/11/19 01:45 WBC RBC Hgb Hct MCV MCH MCHC RDW Plt Count Seg Neutrophils % Lymphocytes % Monocytes % Eosinophils % Basophils % Absolute Neutrophils Absolute Lymphocytes Absolute Monocytes Absolute Eosinophils Absolute Basophils VBG pH 7.41 VBG pCO2 37.9 VBG HCO3 23.6 VBG Base Excess -0.7 Sodium Potassium Chloride Carbon Dioxide Anion Gap BUN Creatinine Est GFR ( Amer) Est GFR (Non-Af Amer) Glucose Calcium Total Bilirubin AST ALT Alkaline Phosphatase Total Protein Albumin Urine Color Urine Appearance Urine pH Ur Specific [place] Urine Protein Urine Glucose (UA) Urine Ketones Urine Blood Urine Nitrite Ur Leukocyte Esterase Urine WBC (Auto) Urine RBC (Auto) 03/11/19 03/11/19 03/11/19 01:30 01:30 01:30 Creatine Kinase 86 CK-MB (CK-2) 1.32 Troponin I 0.067 NT-Pro-B Natriuret Pep 9260 H 03/11/19 03/11/19 03/11/19 03:52 12:54 15:19 Creatine Kinase CK-MB (CK-2) Troponin I 0.059 0.057 0.047 NT-Pro-B Natriuret Pep Impressions: Chest X-Ray 03/11/19 05:14 IMPRESSION: No significant change compared to the prior exam. copyright 2011 [employer]- All Rights Reserved Assessment and Plan - Diagnosis (1) CHF exacerbation Qualifiers: Heart failure type: unspecified Qualified Code(s): I50.9 - Heart failure, unspecified Is this a current diagnosis for this admission?: Yes Plan: Patient is admitted with complaint of progressively worsening fatigue, dyspnea on exertion, orthopnea, and dependent edema. Chest x-rays are benign. EKG demonstrates Normal sinus rhythm. Troponins are indeterminately elevated but negative; 0.067-> 0.059-> 0.057 proBNP elevated to 9260. Echocardiogram pending. Patient is admitted to telemetry. Home medication regiment of isosorbide, metoprolol, Ranexa are continued. She is provided IV furosemide for diuresis. Is placed on a cardiac diet. Daily weights, strict I'&O's. (2) Urinary tract infection Qualifiers: Urinary tract infection type: acute cystitis Hematuria presence: with hematuria Qualified Code(s): N30.01 - Acute cystitis with hematuria Is this a current diagnosis for this admission?: Yes Plan: Urinalysis positive for UTI. Blood cultures (4 4 bottles) gram-negative rods. Urine culture is pending. Patient is empirically placed on IV Rocephin. (3) COPD (chronic obstructive pulmonary disease) Qualifiers: COPD type: unspecified COPD Qualified Code(s): J44.9 - Chronic obstructive pulmonary disease, unspecified Is this a current diagnosis for this admission?: Yes Plan: Stable and without exacerbation at this time. Patient has noted to have a slight expiratory wheeze without rhonchi, cough, or requirement for supplemental oxygen. Patient is provided supplemental oxygen as needed. Schedule and as needed nebulizer treatments. Continue home dose trilogy. Monitor for need for steroid therapy. (4) Diabetes Qualifiers: Diabetes mellitus type: type 2 Diabetes mellitus long term care social worker insulin use: without long term care social worker use Diabetes mellitus complication status: with kidney complications Diabetes mellitus complication detail: with chronic kidney disease Chronic kidney disease stage: stage 3 (moderate) Qualified Code(s): E11.22 - Type 2 diabetes mellitus with diabetic chronic kidney disease; N18.3 - Chronic kidney disease, stage 3 (moderate) Is this a current diagnosis for this admission?: Yes Plan: Patient is placed on a consistent carb/cardiac diet. We will check A1c with a.m. lab work. Accu-Cheks before meals and at bedtime. Sliding scale insulin. (5) Tobacco dependence Is this a current diagnosis for this admission?: Yes Plan: Smoking cessation strongly encouraged. Nicotine or placement therapies provided. (6) Bacteremia Is this a current diagnosis for this admission?: Yes Plan: Blood cultures (4 of 4 bottles) growing gram-negative rods; likely secondary to urinary tract infection. Currently on IV Rocephin; will adjust as cultures result. Repeat cultures in the morning - Time Time Spent with patient: 35 or more minutes Medications reviewed and adjusted accordingly: Yes Anticipated discharge: Home - Inpatient Certification Based on my medical assessment, after consideration of the patient's comorbidities, presenting symptoms, or acuity I expect that the services needed warrant INPATIENT care.: Yes I certify that my determination is in accordance with my understanding of Medicare's requirements for reasonable and necessary INPATIENT services [42 CFR 412.3e].: Yes Medical Necessity: Need For Continuous Telemetry Monitoring, Need for IV Antibiotics, Risk of Complication if Not Cared For in Hospital
--- NOTE | 2019-03-11 18:18 | EKG REPORT ---
SEVERITY:- BORDERLINE ECG - SINUS RHYTHM BORDERLINE T ABNORMALITIES, LATERAL LEADS : Confirmed by: Joyce Hare MD 11-Mar-2019 18:17:25
--- NOTE | 2019-03-11 18:18 | EKG REPORT ---
SEVERITY:- ABNORMAL ECG - SINUS RHYTHM ATRIAL PREMATURE COMPLEX MINIMAL ST DEPRESSION, ANTEROLATERAL LEADS PROLONGED QT INTERVAL : Confirmed by: Joyce Hare MD 11-Mar-2019 18:17:21
[2019-03-11] MEDS ORDERED: (PENDING PHARMACY ID) (Methadone Hcl [Dolophine Hcl] 5 MG) PO SCH (22:00)
[2019-03-12] MEDS ORDERED: NICOTINE 7 MG/24 HR PATCH.TD24 TD ONE ×2 (00:15→22:30)
[2019-03-12] MEDS: OXYCODONE HCL IR 5 MG TABLET PO PRN ×3 (01:37→19:59)
[2019-03-12] MEDS: PANTOPRAZOLE SODIUM 40 MG TABLET.DR PO SCH (05:13)
[2019-03-12] MEDS ORDERED: PANTOPRAZOLE SODIUM 40 MG TABLET.DR PO SCH (06:00)
[2019-03-12] MEDS: HEPARIN SOD (PORCINE) 5,000 UNIT/ML 1 ML VIAL SUBCUT SCH ×3 (06:35→21:54)
[2019-03-12 06:37] LABS: BLOOD UREA NITROGEN 26 mg/dL (7-20); CHOLESTEROL 152.92 mg/dL (0-200); GLUCOSE 99 mg/dL (75-110); POTASSIUM 3.9 mmol/L (3.6-5.0); TRIGLYCERIDES 222 mg/dL (<150)
[2019-03-12 06:43] LABS: CARBON DIOXIDE 26 mmol/L (22-30); CHLORIDE 108 mmol/L (98-107)
[2019-03-12 06:48] LABS: DIRECT LDL 91 mg/dL (<100)
[2019-03-12 06:52] LABS: ANION GAP 4 (5-19); VLDL CHOLESTEROL 44.4 mg/dL (10-31)
[2019-03-12] MEDS: IPRATROPIUM/ALBUTEROL 0.5-2.5 MG/3 ML AMPUL NEB SCH ×2 (08:24→19:43)
[2019-03-12] MEDS: INSULIN LISPRO 100 UNIT/ML 3 ML VIAL SUBCUT SCH ×4 (09:19→21:54)
[2019-03-12] MEDS: METHADONE HCL 10 MG TABLET PO SCH ×2 (09:50→22:21)
[2019-03-12] MEDS: DOCUSATE SODIUM 100 MG CAPSULE PO SCH (09:51)
[2019-03-12] MEDS: METOPROLOL SUCCINATE 25 MG TAB.SR.24H PO SCH (09:51)
[2019-03-12] MEDS: ISOSORBIDE MONONITRATE 60 MG TAB.ER.24H PO SCH (09:52)
[2019-03-12] MEDS: GABAPENTIN 300 MG CAPSULE PO SCH ×2 (09:52→22:21)
[2019-03-12] MEDS: PARICALCITOL 1 MCG CAPSULE PO SCH (09:53)
[2019-03-12] MEDS: FLUTICASONE/UMECLIDIN/VILANTER 100-62.5-25 MCG/DOSE IH SCH (09:54)
[2019-03-12] MEDS: RANOLAZINE 500 MG TAB.SR.12H PO SCH ×2 (09:58→22:21)
[2019-03-12] MEDS ORDERED: CEFTRIAXONE 2 GM/D5W RTU 2 GM/50 ML RTUPB IV SCH (10:00)
[2019-03-12] MEDS ORDERED: CEFTRIAXONE 1 GM/D5W RTU 1 GM/50 ML RTUPB IV SCH (10:00)
[2019-03-12] MEDS: FUROSEMIDE INJ/PF 40 MG/4 ML SDV IV SCH ×2 (11:32→22:23)
[2019-03-12] MEDS: CEFTRIAXONE SODIUM 1,000 MG in DEXTROSE 5%-WATER 50 ML IV SCH (11:35)
--- NOTE | 2019-03-12 18:46 | PDOC PROGRESS REPORT ---
Subjective Progress Note for:: 03/12/19 Subjective:: WILNER CONSTANTINO is a 63 year old female with a past medical history significant for CHF, [place] (stent x1), hypertension, hyperlipidemia, DM 2, CKD 3, and CVA without residual deficits who was admitted 03/11/2019 for CHF exacerbation and UTI Patient seen on morning rounds. She is found resting in bed comfortably on supplemental oxygen by nasal cannula. She is noted to be lying supine; patient does confirm increased comfort and resolution of her orthopnea. Her only complaint today is severe fatigue and right flank pain. She denies fever, chills, chest pain, palpitations, dyspnea, orthopnea, cough, abdominal pain, nausea and vomiting. She reports good appetite. She has no other questions or concerns. No concerns per nursing Reason For Visit: HEART FAILURE Physical Exam Vital Signs: Temp Pulse Resp BP Pulse Ox 98.9 F 71 18 155/50 H 94 03/12/19 16:26 03/12/19 16:26 03/12/19 16:26 03/12/19 16:26 03/12/19 16:26 Intake & Output 03/11/19 03/12/19 03/13/19 06:59 06:59 06:59 Intake Total 444 648 Balance 444 648 Weight 106.594 kg 94.8 kg General appearance: PRESENT: no acute distress, cooperative, disheveled, obese, well-developed, well-nourished Head exam: PRESENT: atraumatic, normocephalic Eye exam: PRESENT: conjunctiva pink, EOMI, PERRLA. ABSENT: scleral icterus Mouth exam: PRESENT: moist, tongue midline Teeth exam: PRESENT: poor dentation Neck exam: ABSENT: carotid bruit, JVD, lymphadenopathy, thyromegaly Respiratory exam: PRESENT: crackles - Bibasilar, prolonged expiratory phas, symmetrical, other - Supplemental oxygen. ABSENT: rales, rhonchi, unlabored, wheezes Cardiovascular exam: PRESENT: RRR, +S1, +S2. ABSENT: diastolic murmur, rubs, systolic murmur Pulses: PRESENT: normal dorsalis pedis pul Vascular exam: PRESENT: normal capillary refill GI/Abdominal exam: PRESENT: normal bowel sounds, soft. ABSENT: distended, guarding, mass, organolmegaly, rebound, tenderness Rectal exam: PRESENT: deferred Extremities exam: PRESENT: full ROM. ABSENT: calf tenderness, clubbing, pedal edema Neurological exam: PRESENT: alert, awake, oriented to person, oriented to place, oriented to time, oriented to situation, CN II-XII grossly intact. ABSENT: motor sensory deficit Psychiatric exam: PRESENT: appropriate affect, normal mood. ABSENT: homicidal ideation, suicidal ideation Skin exam: PRESENT: dry, intact, warm. ABSENT: cyanosis, rash Results Laboratory Results: 03/11/19 01:30 03/12/19 06:00 03/12/19 06:00 Sodium 138.2 Potassium 3.9 Chloride 108 H Carbon Dioxide 26 Anion Gap 4 L BUN 26 H Creatinine 1.51 H Est GFR ( Amer) 42 L Est GFR (Non-Af Amer) 35 L Glucose 99 Calcium 9.0 Triglycerides 222 H Cholesterol 152.92 LDL Cholesterol Direct 91 VLDL Cholesterol 44.4 H HDL Cholesterol 22 L 03/11/19 03/11/19 03/11/19 01:30 01:30 01:30 Creatine Kinase 86 CK-MB (CK-2) 1.32 Troponin I 0.067 NT-Pro-B Natriuret Pep 9260 H 03/11/19 03/11/19 03/11/19 03:52 12:54 15:19 Creatine Kinase CK-MB (CK-2) Troponin I 0.059 0.057 0.047 NT-Pro-B Natriuret Pep 03/12/19 06:00 Creatine Kinase CK-MB (CK-2) Troponin I NT-Pro-B Natriuret Pep 7220 H Impressions: Chest X-Ray 03/11/19 05:14 IMPRESSION: No significant change compared to the prior exam. copyright 2010 [employer]- All Rights Reserved Assessment and Plan - Diagnosis (1) CHF exacerbation Qualifiers: Heart failure type: unspecified Qualified Code(s): I50.9 - Heart failure, unspecified Is this a current diagnosis for this admission?: Yes Plan: Improved; decreased oxygen requirement, now comfortable supine. Patient is admitted with complaint of progressively worsening fatigue, dyspnea on exertion, orthopnea, and dependent edema. Chest x-rays are benign. EKG demonstrates Normal sinus rhythm. Troponins are indeterminately elevated but negative; 0.067-> 0.059-> 0.057-> 0.047 proBNP elevated to 9260-> 7220 Echocardiogram pending. Patient is admitted to telemetry. Home medication regiment of isosorbide, metoprolol, Ranexa are continued. She is provided IV furosemide for diuresis. Is placed on a cardiac diet. Daily weights, strict I'&O's. (2) Urinary tract infection Qualifiers: Urinary tract infection type: acute cystitis Hematuria presence: with h ematuria Qualified Code(s): N30.01 - Acute cystitis with hematuria Is this a current diagnosis for this admission?: Yes Plan: Urinalysis positive for UTI. Blood cultures (4 4 bottles) gram-negative rods. Urine culture shows gram-negative rods Repeat blood cultures (219) pending Patient is empirically placed on IV Rocephin. (3) COPD (chronic obstructive pulmonary disease) Qualifiers: COPD type: unspecified COPD Qualified Code(s): J44.9 - Chronic obstructive pulmonary disease, unspecified Is this a current diagnosis for this admission?: Yes Plan: Stable and without exacerbation at this time. Patient has noted to have a slight expiratory wheeze without rhonchi, cough, or requirement for supplemental oxygen. Patient is provided supplemental oxygen as needed. Schedule and as needed nebulizer treatments. Continue home dose trelegy. Monitor for need for steroid therapy. (4) Diabetes Qualifiers: Diabetes mellitus type: type 2 Diabetes mellitus detention insulin use: without detention use Diabetes mellitus complication status: with kidney complications Diabetes mellitus complication detail: with chronic kidney disease Chronic kidney disease stage: stage 3 (moderate) Qualified Code(s): E11.22 - Type 2 diabetes mellitus with diabetic chronic kidney disease; N18.3 - Chronic kidney disease, stage 3 (moderate) Is this a current diagnosis for this admission?: Yes Plan: A1c 5.2%; well-controlled Patient is placed on a consistent carb/cardiac diet. Accu-Cheks before meals and at bedtime. Sliding scale insulin. (5) Tobacco dependence Is this a current diagnosis for this admission?: Yes Plan: Smoking cessation strongly encouraged. Nicotine or placement therapies provided. (6) Bacteremia Is this a current diagnosis for this admission?: Yes Plan: Blood cultures (4 of 4 bottles) growing gram-negative rods; likely secondary to urinary tract infection. Repeat blood cultures pending. Currently on IV Rocephin; will adjust as cultures result. (7) Mural thrombus of cardiac apex Is this a current diagnosis for this admission?: No Plan: Patient confirms history of mural thrombus. 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 Now w/ bacteremia, although, likely secondary to UTI. Echocardiogram pending. - Time Time Spent with patient: 15-24 minutes Medications reviewed and adjusted accordingly: Yes Anticipated discharge: Home
[2019-03-13] MEDS: HEPARIN SOD (PORCINE) 5,000 UNIT/ML 1 ML VIAL SUBCUT SCH ×3 (05:34→21:22)
[2019-03-13] MEDS: OXYCODONE HCL IR 5 MG TABLET PO PRN ×3 (05:39→23:57)
[2019-03-13] MEDS: PANTOPRAZOLE SODIUM 40 MG TABLET.DR PO SCH (05:40)
[2019-03-13 06:05] LABS: HEMATOCRIT 30.8 % (36.0-47.0); HEMOGLOBIN 10.4 g/dL (12.0-15.5); MEAN CORPUSCULAR HEMOGLOBIN 34.1 pg (27.0-33.4); MEAN CORPUSCULAR HGB CONC 33.7 g/dL (32.0-36.0); MEAN CORPUSCULAR VOLUME 101 fl (80-97); PLATELET COUNT 144 10^3/uL (150-450); RED BLOOD COUNT 3.04 10^6/uL (3.72-5.28); RED CELL DISTRIBUTION WIDTH 13.5 % (11.5-14.0); WHITE BLOOD COUNT 5.3 10^3/uL (4.0-10.5)
[2019-03-13 06:25] LABS: BLOOD UREA NITROGEN 28 mg/dL (7-20); CALCIUM 9.2 mg/dL (8.4-10.2); CARBON DIOXIDE 31 mmol/L (22-30); CHLORIDE 105 mmol/L (98-107); GLUCOSE 105 mg/dL (75-110); POTASSIUM 4.1 mmol/L (3.6-5.0)
[2019-03-13 06:39] LABS: ANION GAP 4 (5-19)
[2019-03-13] MEDS: INSULIN LISPRO 100 UNIT/ML 3 ML VIAL SUBCUT SCH ×4 (07:33→21:21)
[2019-03-13] MEDS: IPRATROPIUM/ALBUTEROL 0.5-2.5 MG/3 ML AMPUL NEB SCH ×2 (08:03→19:46)
[2019-03-13] MEDS: ISOSORBIDE MONONITRATE 60 MG TAB.ER.24H PO SCH (09:27)
[2019-03-13] MEDS: GABAPENTIN 300 MG CAPSULE PO SCH ×2 (09:27→21:32)
[2019-03-13] MEDS: FLUTICASONE/UMECLIDIN/VILANTER 100-62.5-25 MCG/DOSE IH SCH (09:28)
[2019-03-13] MEDS: CEFTRIAXONE SODIUM 1,000 MG in DEXTROSE 5%-WATER 50 ML IV SCH (09:28)
[2019-03-13] MEDS: RANOLAZINE 500 MG TAB.SR.12H PO SCH ×2 (09:28→21:32)
[2019-03-13] MEDS: PARICALCITOL 1 MCG CAPSULE PO SCH (09:28)
[2019-03-13] MEDS: METOPROLOL SUCCINATE 25 MG TAB.SR.24H PO SCH (09:28)
[2019-03-13] MEDS: DOCUSATE SODIUM 100 MG CAPSULE PO SCH (09:28)
[2019-03-13] MEDS: METHADONE HCL 10 MG TABLET PO SCH ×2 (09:29→21:32)
[2019-03-13] MEDS: FUROSEMIDE INJ/PF 40 MG/4 ML SDV IV SCH (09:30)
[2019-03-13] MEDS ORDERED: NICOTINE 7 MG/24 HR PATCH.TD24 TD SCH (10:00)
[2019-03-13] MEDS ORDERED: NICOTINE 21 MG/24 HR PATCH.TD24 TD ONE (11:26)
--- NOTE | 2019-03-13 14:51 | PDOC PROGRESS REPORT ---
Subjective Progress Note for:: 03/13/19 Subjective:: WILNER CONSTANTINO is a 63 year old female with a past medical history significant for CHF, [place] (stent x1), hypertension, hyperlipidemia, DM 2, CKD 3, and CVA without residual deficits who was admitted 03/11/2019 for CHF exacerbation and UTI Patient seen on morning rounds. She is found resting in bed comfortably on room air. Her only complaint today is continued fatigue, though slightly improved. Flank pain ahs resolved. She denies fever, chills, chest pain, palpitations, dyspnea, orthopnea, cough, abdominal pain, nausea and vomiting. She reports good appetite. She has no other questions or concerns. No concerns per nursing Reason For Visit: HEART FAILURE Physical Exam Vital Signs: Temp Pulse Resp BP Pulse Ox 98.0 F 61 16 142/75 H 92 03/13/19 07:46 03/13/19 08:03 03/13/19 08:03 03/13/19 07:46 03/13/19 08:03 Intake & Output 03/12/19 03/13/19 03/14/19 06:59 06:59 06:59 Intake Total 444 1123 50 Balance 444 1123 50 Weight 94.8 kg 95.7 kg General appearance: PRESENT: no acute distress, cooperative, well-developed, well-nourished - overweight Head exam: PRESENT: atraumatic, normocephalic Eye exam: PRESENT: conjunctiva pink, EOMI, PERRLA. ABSENT: scleral icterus Ear exam: PRESENT: normal external ear exam Mouth exam: PRESENT: moist, tongue midline Neck exam: ABSENT: carotid bruit, JVD, lymphadenopathy, thyromegaly Respiratory exam: PRESENT: clear to auscultation jovan. ABSENT: rales, rhonchi, wheezes Cardiovascular exam: PRESENT: RRR. ABSENT: diastolic murmur, rubs, systolic murmur Pulses: PRESENT: normal dorsalis pedis pul Vascular exam: PRESENT: normal capillary refill GI/Abdominal exam: PRESENT: normal bowel sounds, soft. ABSENT: distended, guarding, mass, organolmegaly, rebound, tenderness Rectal exam: PRESENT: deferred Extremities exam: PRESENT: full ROM. ABSENT: calf tenderness, clubbing, pedal edema Neurological exam: PRESENT: alert, awake, oriented to person, oriented to place, oriented to time, oriented to situation, CN II-XII grossly intact. ABSENT: motor sensory deficit Psychiatric exam: PRESENT: appropriate affect, normal mood. ABSENT: homicidal ideation, suicidal ideation Skin exam: PRESENT: dry, intact, warm. ABSENT: cyanosis, rash Results Laboratory Results: 03/13/19 05:30 03/13/19 05:30 03/13/19 03/13/19 05:30 05:30 WBC 5.3 RBC 3.04 L Hgb 10.4 L Hct 30.8 L MCV 101 H MCH 34.1 H MCHC 33.7 RDW 13.5 Plt Count 144 L Sodium 140.2 Potassium 4.1 Chloride 105 Carbon Dioxide 31 H Anion Gap 4 L BUN 28 H Creatinine 1.68 H Est GFR ( Amer) 37 L Est GFR (Non-Af Amer) 31 L Glucose 105 Calcium 9.2 03/11/19 02:45 Blood Blood Culture - Final Escherichia Coli 03/11/19 01:30 Blood Blood Culture - Final Escherichia Coli 03/10/19 23:46 Clean Catch Midstream Urine Culture - Final Escherichia Coli 03/11/19 03/11/19 03/11/19 01:30 01:30 01:30 Creatine Kinase 86 CK-MB (CK-2) 1.32 Troponin I 0.067 NT-Pro-B Natriuret Pep 9260 H 03/11/19 03/11/19 03/11/19 03:52 12:54 15:19 Creatine Kinase CK-MB (CK-2) Troponin I 0.059 0.057 0.047 NT-Pro-B Natriuret Pep 03/12/19 06:00 Creatine Kinase CK-MB (CK-2) Troponin I NT-Pro-B Natriuret Pep 7220 H Impressions: Chest X-Ray 03/11/19 05:14 IMPRESSION: No significant change compared to the prior exam. copyright 2010 [email or web address]- All Rights Reserved Assessment and Plan - Diagnosis (1) CHF exacerbation Qualifiers: Heart failure type: unspecified Qualified Code(s): I50.9 - Heart failure, unspecified Is this a current diagnosis for this admission?: Yes Plan: Improved; now maintianing saturations on room air Patient is admitted with complaint of progressively worsening fatigue, dyspnea on exertion, orthopnea, and dependent edema. Chest x-rays are benign. EKG demonstrates Normal sinus rhythm. Troponins are indeterminately elevated but negative; 0.067-> 0.059-> 0.057-> 0.047 proBNP elevated to 9260-> 7220 Echocardiogram pending. Down ~10 kg Patient is admitted to telemetry. Home medication regiment of isosorbide, metoprolol, Ranexa are continued. Transition to p.o. furosemide Is placed on a cardiac diet. Daily weights, strict I'&O's. (2) Urinary tract infection Qualifiers: Urinary tract infection type: acute cystitis Hematuria presence: with hematuria Qualified Code(s): N30.01 - Acute cystitis with hematuria Is this a current diagnosis for this admission?: Yes Plan: Urinalysis positive for UTI. Blood cultures (4/4 bottles) kaiser sensitive e.coli Urine culture shows kaiser sensitive e. coli Repeat blood cultures (03/12/19) negative Patient is empirically placed on IV Rocephin; Day #3. Continue until echo is complete; if LV thrombus remains, will ask ID for guidance (3) COPD (chronic obstructive pulmonary disease) Qualifiers: COPD type: unspecified COPD Qualified Code(s): J44.9 - Chronic obstructive pulmonary disease, unspecified Is this a current diagnosis for this admission?: Yes Plan: Stable and without exacerbation at this time. Patient has noted to have a slight expiratory wheeze without rhonchi, cough, or requirement for supplemental oxygen. Patient is provided supplemental oxygen as needed. Schedule and as needed nebulizer treatments. Continue home dose trelegy. Monitor for need for steroid therapy. (4) Diabetes Qualifiers: Diabetes mellitus type: type 2 Diabetes mellitus retirement insulin use: without retirement use Diabetes mellitus complication status: with kidney complications Diabetes mellitus complication detail: with chronic kidney disease Chronic kidney disease stage: stage 3 (moderate) Qualified Code(s): E11.22 - Type 2 diabetes mellitus with diabetic chronic kidney disease; N18.3 - Chronic kidney disease, stage 3 (moderate) Is this a current diagnosis for this admission?: Yes Plan: A1c 5.2%; well-controlled Patient is placed on a consistent carb/cardiac diet. Accu-Cheks before meals and at bedtime. Sliding scale insulin. (5) Tobacco dependence Is this a current diagnosis for this admission?: Yes Plan: Smoking cessation strongly encouraged. Nicotine or placement therapies provided. (6) Bacteremia Is this a current diagnosis for this admission?: Yes Plan: Blood cultures (4 of 4 bottles) kaiser sensitive e. coli; secondary to urinary tract infection. Repeat blood cultures negative Currently on IV Rocephin; will adjust as cultures following echo results. (7) Mural thrombus of cardiac apex Is this a current diagnosis for this admission?: No Plan: Patient confirms history of mural thrombus. 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 Now w/ bacteremia, although, likely secondary to UTI. Echocardiogram pending. - Time Time Spent with patient: 15-24 minutes Medications reviewed and adjusted accordingly: Yes Anticipated discharge: Home Within: within 24 hours - pending reassuring echo
[2019-03-13] MEDS: FUROSEMIDE 40 MG TABLET PO SCH (17:42)
[2019-03-14] MEDS: MAGNESIUM HYDROXIDE SUSP 30 ML UDCUP PO PRN ×2 (00:01→14:53)
[2019-03-14] MEDS: HEPARIN SOD (PORCINE) 5,000 UNIT/ML 1 ML VIAL SUBCUT SCH ×3 (06:10→21:13)
[2019-03-14] MEDS: PANTOPRAZOLE SODIUM 40 MG TABLET.DR PO SCH (06:18)
[2019-03-14] MEDS: OXYCODONE HCL IR 5 MG TABLET PO PRN ×3 (06:18→23:12)
[2019-03-14 06:53] LABS: HEMATOCRIT 31.9 % (36.0-47.0); MEAN CORPUSCULAR HEMOGLOBIN 34.3 pg (27.0-33.4); MEAN CORPUSCULAR HGB CONC 34.3 g/dL (32.0-36.0); MEAN CORPUSCULAR VOLUME 100 fl (80-97); PLATELET COUNT 179 10^3/uL (150-450); RED BLOOD COUNT 3.19 10^6/uL (3.72-5.28); RED CELL DISTRIBUTION WIDTH 13.3 % (11.5-14.0); WHITE BLOOD COUNT 4.8 10^3/uL (4.0-10.5)
[2019-03-14 07:01] LABS: ANION GAP 5 (5-19); BLOOD UREA NITROGEN 27 mg/dL (7-20); CALCIUM 9.3 mg/dL (8.4-10.2); CARBON DIOXIDE 34 mmol/L (22-30); CHLORIDE 101 mmol/L (98-107); GLUCOSE 108 mg/dL (75-110); POTASSIUM 3.8 mmol/L (3.6-5.0)
[2019-03-14] MEDS: INSULIN LISPRO 100 UNIT/ML 3 ML VIAL SUBCUT SCH ×4 (07:59→21:13)
[2019-03-14] MEDS: IPRATROPIUM/ALBUTEROL 0.5-2.5 MG/3 ML AMPUL NEB SCH (08:00)
[2019-03-14] MEDS ORDERED: IPRATROPIUM/ALBUTEROL 0.5-2.5 MG/3 ML AMPUL NEB PRN (08:35)
[2019-03-14] MEDS: FLUTICASONE/UMECLIDIN/VILANTER 100-62.5-25 MCG/DOSE IH SCH (09:49)
[2019-03-14] MEDS: ISOSORBIDE MONONITRATE 60 MG TAB.ER.24H PO SCH (09:49)
[2019-03-14] MEDS: METOPROLOL SUCCINATE 25 MG TAB.SR.24H PO SCH (09:49)
[2019-03-14] MEDS: FUROSEMIDE 40 MG TABLET PO SCH ×2 (09:50→17:11)
[2019-03-14] MEDS: GABAPENTIN 300 MG CAPSULE PO SCH ×2 (09:50→21:13)
[2019-03-14] MEDS: METHADONE HCL 10 MG TABLET PO SCH ×2 (09:50→21:13)
[2019-03-14] MEDS: DOCUSATE SODIUM 100 MG CAPSULE PO SCH (09:50)
[2019-03-14] MEDS: RANOLAZINE 500 MG TAB.SR.12H PO SCH ×2 (09:53→21:36)
[2019-03-14] MEDS: CEFTRIAXONE SODIUM 1,000 MG in DEXTROSE 5%-WATER 50 ML IV SCH (09:53)
[2019-03-14] MEDS ORDERED: FLUTICASONE/VILANTEROL 200-25 MCG/DOSE IH SCH (10:00)
[2019-03-14] MEDS ORDERED: TIOTROPIUM BROMIDE DPI 5 CAP/KIT (18 MCG/CAP) IH SCH (10:00)
[2019-03-14] MEDS: PARICALCITOL 1 MCG CAPSULE PO SCH (10:00)
--- NOTE | 2019-03-14 15:28 | PDOC PROGRESS REPORT ---
Subjective Progress Note for:: 03/14/19 Subjective:: WILNER CONSTANTINO is a 63 year old female with a past medical history significant for CHF, [place] (stent x1), hypertension, hyperlipidemia, DM 2, CKD 3, and CVA without residual deficits who was admitted 03/11/2019 for CHF exacerbation and UTI Patient seen on morning rounds. She is found resting in bed comfortably on room air. Her only complaint today is fatigue, though much improved. Flank pain has resolved. She denies fever, chills, chest pain, palpitations, dyspnea, orthopnea, cough, abdominal pain, nausea and vomiting. She reports good appetite. She has no other questions or concerns. No concerns per nursing Reason For Visit: HEART FAILURE Physical Exam Vital Signs: Temp Pulse Resp BP Pulse Ox 98.2 F 55 L 17 150/51 H 97 03/14/19 12:00 03/14/19 14:00 03/14/19 12:00 03/14/19 12:00 03/14/19 12:00 Intake & Output 03/13/19 03/14/19 03/15/19 06:59 06:59 06:59 Intake Total 1123 1989 Balance 1123 1989 Weight 95.7 kg 94.7 kg General appearance: PRESENT: no acute distress, cooperative, obese, well- developed, well-nourished Head exam: PRESENT: atraumatic, normocephalic Eye exam: PRESENT: conjunctiva pink, EOMI, PERRLA. ABSENT: scleral icterus Ear exam: PRESENT: normal external ear exam Mouth exam: PRESENT: moist, tongue midline Neck exam: ABSENT: carotid bruit, JVD, lymphadenopathy, thyromegaly Respiratory exam: PRESENT: clear to auscultation jovan, symmetrical, unlabored. ABSENT: rales, rhonchi, wheezes Cardiovascular exam: PRESENT: RRR. ABSENT: diastolic murmur, rubs, systolic murmur Pulses: PRESENT: normal dorsalis pedis pul Vascular exam: PRESENT: normal capillary refill GI/Abdominal exam: PRESENT: normal bowel sounds, soft. ABSENT: distended, guarding, mass, organolmegaly, rebound, tenderness Rectal exam: PRESENT: deferred Extremities exam: PRESENT: full ROM. ABSENT: calf tenderness, clubbing, pedal edema Neurological exam: PRESENT: alert, awake, oriented to person, oriented to place, oriented to time, oriented to situation, CN II-XII grossly intact. ABSENT: motor sensory deficit Psychiatric exam: PRESENT: appropriate affect, normal mood. ABSENT: homicidal ideation, suicidal ideation Skin exam: PRESENT: dry, intact, warm. ABSENT: cyanosis, rash Results Laboratory Results: 03/14/19 06:10 03/14/19 06:10 03/14/19 03/14/19 06:10 06:10 WBC 4.8 RBC 3.19 L Hgb 11.0 L Hct 31.9 L MCV 100 H MCH 34.3 H MCHC 34.3 RDW 13.3 Plt Count 179 Sodium 140.4 Potassium 3.8 Chloride 101 Carbon Dioxide 34 H Anion Gap 5 BUN 27 H Creatinine 1.42 H Est GFR ( Amer) 45 L Est GFR (Non-Af Amer) 37 L Glucose 108 Calcium 9.3 03/11/19 02:45 Blood Blood Culture - Final Escherichia Coli 03/11/19 01:30 Blood Blood Culture - Final Escherichia Coli 03/10/19 23:46 Clean Catch Midstream Urine Culture - Final Escherichia Coli 03/11/19 03/11/19 03/11/19 01:30 01:30 01:30 Creatine Kinase 86 CK-MB (CK-2) 1.32 Troponin I 0.067 NT-Pro-B Natriuret Pep 9260 H 03/11/19 03/11/19 03/11/19 03:52 12:54 15:19 Creatine Kinase CK-MB (CK-2) Troponin I 0.059 0.057 0.047 NT-Pro-B Natriuret Pep 03/12/19 06:00 Creatine Kinase CK-MB (CK-2) Troponin I NT-Pro-B Natriuret Pep 7220 H Impressions: Chest X-Ray 03/11/19 05:14 IMPRESSION: No significant change compared to the prior exam. copyright 2010 [employer]- All Rights Reserved Assessment and Plan - Diagnosis (1) CHF exacerbation Qualifiers: Heart failure type: unspecified Qualified Code(s): I50.9 - Heart failure, unspecified Is this a current diagnosis for this admission?: Yes Plan: Improved; now maintianing saturations on room air while ambulatory Patient was admitted with complaint of progressively worsening fatigue, dyspnea on exertion, orthopnea, and dependent edema. Chest x-rays are benign. EKG demonstrates Normal sinus rhythm. Troponins are indeterminately elevated but negative; 0.067-> 0.059-> 0.057-> 0.047 proBNP elevated to 9260-> 7220 Echocardiogram pending. Down ~11 kg Patient is admitted to telemetry. Home medication regiment of isosorbide, metoprolol, Ranexa are continued. Continue p.o. furosemide Cardiac diet. Daily weights, strict I'&O's. (2) Urinary tract infection Qualifiers: Urinary tract infection type: acute cystitis Hematuria presence: with hematuria Qualified Code(s): N30.01 - Acute cystitis with hematuria Is this a current diagnosis for this admission?: Yes Plan: Urinalysis positive for UTI. Blood cultures (4/4 bottles) kaiser sensitive e.coli Urine culture shows kaiser sensitive e. coli Repeat blood cultures (03/12/19) negative Patient is empirically placed on IV Rocephin; Day #4. Continue until echo is complete; if LV thrombus remains, will ask ID for guidance (3) COPD (chronic obstructive pulmonary disease) Qualifiers: COPD type: unspecified COPD Qualified Code(s): J44.9 - Chronic obstructive pulmonary disease, unspecified Is this a current diagnosis for this admission?: Yes Plan: Stable and without exacerbation at this time. Patient has noted to have a slight expiratory wheeze without rhonchi, cough, or requirement for supplemental oxygen. Patient is provided supplemental oxygen as needed. As needed nebulizer treatments. Continue home dose trelegy. Monitor for need for steroid therapy. (4) Diabetes Qualifiers: Diabetes mellitus type: type 2 Diabetes mellitus retirement insulin use: without terminal supervisor use Diabetes mellitus complication status: with kidney complications Diabetes mellitus complication detail: with chronic kidney disease Chronic kidney disease stage: stage 3 (moderate) Qualified Code(s): E11.22 - Type 2 diabetes mellitus with diabetic chronic kidney disease; N18.3 - Chronic kidney disease, stage 3 (moderate) Is this a current diagnosis for this admission?: Yes Plan: A1c 5.2%; well-controlled Patient is placed on a consistent carb/cardiac diet. Accu-Cheks before meals and at bedtime. Sliding scale insulin. (5) Tobacco dependence Is this a current diagnosis for this admission?: Yes Plan: Smoking cessation strongly encouraged. Nicotine or placement therapies provided. (6) Bacteremia Is this a current diagnosis for this admission?: Yes Plan: Blood cultures (4 of 4 bottles) kaiser sensitive e. coli; secondary to urinary tract infection. Repeat blood cultures negative Currently on IV Rocephin; will adjust as cultures following echo results. (7) Mural thrombus of cardiac apex Is this a current diagnosis for this admission?: No Plan: Patient confirms history of mural thrombus. 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 Now w/ bacteremia, although, likely secondary to UTI. Echocardiogram pending. - Time Time Spent with patient: 15-24 minutes Medications reviewed and adjusted accordingly: Yes Anticipated discharge: Home Within: within 24 hours - pending echocardiogram
[2019-03-15] MEDS: OXYCODONE HCL IR 5 MG TABLET PO PRN ×3 (05:36→20:04)
[2019-03-15] MEDS: HEPARIN SOD (PORCINE) 5,000 UNIT/ML 1 ML VIAL SUBCUT SCH ×3 (05:37→22:25)
[2019-03-15] MEDS: PANTOPRAZOLE SODIUM 40 MG TABLET.DR PO SCH (05:37)
[2019-03-15] MEDS: INSULIN LISPRO 100 UNIT/ML 3 ML VIAL SUBCUT SCH ×4 (08:27→22:10)
[2019-03-15] MEDS: DOCUSATE SODIUM 100 MG CAPSULE PO SCH (09:11)
[2019-03-15] MEDS: METHADONE HCL 10 MG TABLET PO SCH ×2 (09:11→22:24)
[2019-03-15] MEDS: FUROSEMIDE 40 MG TABLET PO SCH ×2 (09:11→17:02)
[2019-03-15] MEDS: GABAPENTIN 300 MG CAPSULE PO SCH ×2 (09:12→22:23)
[2019-03-15] MEDS: METOPROLOL SUCCINATE 25 MG TAB.SR.24H PO SCH (09:12)
[2019-03-15] MEDS: ISOSORBIDE MONONITRATE 60 MG TAB.ER.24H PO SCH (09:12)
[2019-03-15] MEDS: PARICALCITOL 1 MCG CAPSULE PO SCH (09:13)
[2019-03-15] MEDS: RANOLAZINE 500 MG TAB.SR.12H PO SCH ×2 (09:13→22:23)
[2019-03-15] MEDS: CEFTRIAXONE SODIUM 1,000 MG in DEXTROSE 5%-WATER 50 ML IV SCH (09:14)
[2019-03-15] MEDS: FLUTICASONE/UMECLIDIN/VILANTER 100-62.5-25 MCG/DOSE IH SCH (09:14)
--- NOTE | 2019-03-15 15:23 | XCELERA REPORT ---
[address] [address] Transthoracic Echocardiogram Report Name: WILNER CONSTANTINO Age: 63 yrs Gender: Female : 1955 Patient Status: Inpatient Patient Location: [address] [place], [place] [id number] Study Date: 03/15/2019 09:36 AM Height: 66 in Weight: 210 lb BSA: 2.0 m2 Procedure: A two-dimensional transthoracic echocardiogram with color flow and Doppler was performed. Study Quality: Fair. Reason For Study: CHF, hx LV apex thrombus History: CHF, hx LV apex thrombus. Ordering Physician: ASHLEY HUGGINS Performed By: Patt Pinedo Interpretation Summary The left ventricle is normal in size. There is normal left ventricular wall thickness. The left ventricular ejection fraction is within normal limits. LV EF is > than 60% Doppler measurements suggest normal left ventricular diastolic function The left ventricular wall motion is normal. Probably no ASD,VSD,or PFO seen.There is a non mobile non pedunculated structure in the apocal lateral wall, the differential of which is prominent trabaculae versus clot versus artifct.Since there is no wall motion abnormality in this area it probably is not a clot,but recommend RIMA to exclude clot and to see if indeed this appearence is due to prominent trabaculae. The right ventricle is normal in size and function. The right ventricle is not well visualized secondary to technical limitations The right atrium is normal in size The left atrial size is normal. There is no evidence of mitral valve prolapse. There is no vegetation seen on the mitral valve. There is no mitral valve stenosis. There is a mild amount of mitral regurgitation There is no aortic valvular vegetation. There is no aortic valve stenosis There is no LVOT obstruction. There is a trace amount of aortic regurgitation There is no tricuspid stenosis. There is a trace amount of tricuspid regurgitation There is mild pulmonary hypertension by echo RVSP is 31 to 36 mm of Hg , withh RA mean of 5 to 10. There is no pulmonic valvular stenosis. There is a trace amount of pulmonic regurgitation The aortic root is normal size. The inferior vena cava appeared normal and decreased < 50% with respiration (RAP 10-15 mmHg) Minimal pericardial effusion. There are no echocardiographic or Doppler indications for cardiac tamponade MMode/2D Measurements & Calculations RVDd: 2.5 cm LVIDd: 5.4 cm FS: 31.5 % Ao root diam: 3.0 cm IVSd: 0.87 cm LVIDs: 3.7 cm EDV(Teich): LVPWd: 1.1 cm 144.1 ml Ao root area: ESV(Teich): 7.0 cm2 59.3 ml EF(Teich): 58.9 % EDV(MOD-sp4): SV(MOD-sp4): 104.9 ml 60.0 ml ESV(MOD-sp4): 44.9 ml EF(MOD-sp4): 57.2 % Doppler Measurements & Calculations MV E max hernán: MV dec slope: Ao V2 max: LV V1 max P.2 cm/sec 128.1 cm/sec 5.0 mmHg MV A max hernán: 647.5 cm/sec2 Ao max PG: LV V1 max: 71.0 cm/sec MV dec time: 6.6 mmHg 111.5 cm/sec MV E/A: 1.5 0.16 sec PA V2 max: PI end-d hernán: TR max hernán: 131.1 cm/sec 100.6 cm/sec 259.4 cm/sec PA max P.9 mmHg TR max P.9 mmHg Left Ventricle The left ventricle is normal in size. There is normal left ventricular wall thickness. The left ventricular ejection fraction is within normal limits. LV EF is > than 60%. Doppler measurements suggest normal left ventricular diastolic function. The left ventricular wall motion is normal. Probably no ASD,VSD,or PFO seen.There is a non mobile non pedunculated structure in the apocal lateral wall, the differential of which is prominent trabaculae versus clot versus artifct.Since there is no wall motion abnormality in this area it probably is not a clot,but recommend RIMA to exclude clot and to see if indeed this appearence is due to prominent trabaculae. Right Ventricle The right ventricle is normal in size and function. The right ventricle is not well visualized secondary to technical limitations. Atria The right atrium is normal in size. The left atrial size is normal. Mitral Valve There is no evidence of mitral valve prolapse. There is no vegetation seen on the mitral valve. There is no mitral valve stenosis. There is a mild amount of mitral regurgitation. Aortic Valve There is no aortic valvular vegetation. There is no aortic valve stenosis. There is no LVOT obstruction. There is a trace amount of aortic regurgitation. Tricuspid Valve There is no tricuspid stenosis. There is a trace amount of tricuspid regurgitation. There is mild pulmonary hypertension by echo. RVSP is 31 to 36 mm of Hg , withh RA mean of 5 to 10. Pulmonic Valve There is no pulmonic valvular stenosis. There is a trace amount of pulmonic regurgitation. Great Vessels The aortic root is normal size. The inferior vena cava appeared normal and decreased < 50% with respiration (RAP 10-15 mmHg). Effusions Minimal pericardial effusion. There are no echocardiographic or Doppler indications for cardiac tamponade. : ASHLEY HUGGINS > Joyce Hare
[2019-03-15] MEDS ORDERED: NICOTINE 21 MG/24 HR PATCH.TD24 TD ONE (15:30)
--- NOTE | 2019-03-15 18:26 | PDOC PROGRESS REPORT ---
Subjective Progress Note for:: 03/15/19 Subjective:: WILNER CONSTANTINO is a 63 year old female with a past medical history significant for CHF, OR (stent x1), hypertension, hyperlipidemia, DM 2, CKD 3, and CVA without residual deficits who was admitted 03/11/2019 for CHF exacerbation and UTI Patient seen on afternoon rounds. She is found resting in bed comfortably on room air; observed earlier today ambulating in hallway on room air. She she is feeling well today and hopeful to be discharged to home soon. reports She denies fever, chills, chest pain, palpitations, dyspnea, orthopnea, cough, abdominal pain, nausea and vomiting. She reports good appetite. She has no other questions or concerns. No concerns per nursing Reason For Visit: HEART FAILURE Physical Exam Vital Signs: Temp Pulse Resp BP Pulse Ox 98.1 F 52 L 20 126/48 H 94 03/15/19 15:29 03/15/19 15:29 03/15/19 15:29 03/15/19 15:29 03/15/19 15:29 Intake & Output 03/14/19 03/15/19 03/16/19 06:59 06:59 06:59 Intake Total 1989 1290 530 Balance 1989 1290 530 Weight 94.7 kg 92.5 kg General appearance: PRESENT: no acute distress, cooperative, well-developed, well-nourished - Overweight Head exam: PRESENT: atraumatic, normocephalic Eye exam: PRESENT: conjunctiva pink, EOMI, PERRLA. ABSENT: scleral icterus Ear exam: PRESENT: normal external ear exam Mouth exam: PRESENT: moist, tongue midline Teeth exam: PRESENT: poor dentation Neck exam: ABSENT: carotid bruit, JVD, lymphadenopathy, thyromegaly Respiratory exam: PRESENT: prolonged expiratory phas, rhonchi, symmetrical, unlabored, other - Ambulatory on room air. ABSENT: rales, wheezes Cardiovascular exam: PRESENT: RRR. ABSENT: diastolic murmur, rubs, systolic murmur Pulses: PRESENT: normal dorsalis pedis pul Vascular exam: PRESENT: normal capillary refill GI/Abdominal exam: PRESENT: normal bowel sounds, soft. ABSENT: distended, guarding, mass, organolmegaly, rebound, tenderness Rectal exam: PRESENT: deferred Extremities exam: PRESENT: full ROM. ABSENT: calf tenderness, clubbing, pedal edema Musculoskeletal exam: PRESENT: ambulatory Neurological exam: PRESENT: alert, awake, oriented to person, oriented to place, oriented to time, oriented to situation, CN II-XII grossly intact. ABSENT: motor sensory deficit Psychiatric exam: PRESENT: appropriate affect, normal mood. ABSENT: homicidal ideation, suicidal ideation Skin exam: PRESENT: dry, intact, warm. ABSENT: cyanosis, rash Results Laboratory Results: 03/14/19 06:10 03/14/19 06:10 03/11/19 03/11/19 03/11/19 01:30 01:30 01:30 Creatine Kinase 86 CK-MB (CK-2) 1.32 Troponin I 0.067 NT-Pro-B Natriuret Pep 9260 H 03/11/19 03/11/19 03/11/19 03:52 12:54 15:19 Creatine Kinase CK-MB (CK-2) Troponin I 0.059 0.057 0.047 NT-Pro-B Natriuret Pep 03/12/19 06:00 Creatine Kinase CK-MB (CK-2) Troponin I NT-Pro-B Natriuret Pep 7220 H Impressions: Chest X-Ray 03/11/19 05:14 IMPRESSION: No significant change compared to the prior exam. copyright 2010 [employer]- All Rights Reserved Assessment and Plan - Diagnosis (1) CHF exacerbation Qualifiers: Heart failure type: unspecified Qualified Code(s): I50.9 - Heart failure, unspecified Is this a current diagnosis for this admission?: Yes Plan: Resolved; now maintianing saturations on room air while ambulatory Patient was admitted with complaint of progressively worsening fatigue, dyspnea on exertion, orthopnea, and dependent edema. Chest x-rays are benign. EKG demonstrates Normal sinus rhythm. Troponins are indeterminately elevated but negative; 0.067-> 0.059-> 0.057-> 0.047 proBNP elevated to 9260-> 7220 Echocardiogram pending. Down ~14 kg Patient is admitted to telemetry. Home medication regiment of isosorbide, metoprolol, Ranexa are continued. Continue p.o. furosemide Cardiac diet. Daily weights, strict I'&O's. (2) Urinary tract infection Qualifiers: Urinary tract infection type: acute cystitis Hematuria presence: with hematuria Qualified Code(s): N30.01 - Acute cystitis with hematuria Is this a current diagnosis for this admission?: Yes Plan: Urinalysis positive for UTI. Blood cultures (4/4 bottles) kaiser sensitive e.coli Urine culture shows kaiser sensitive e. coli Repeat blood cultures (03/12/19) negative Patient is empirically placed on IV Rocephin; Day #5. Transition to p.o. Cipro for completion of course of therapy. (3) COPD (chronic obstructive pulmonary disease) Qualifiers: COPD type: unspecified COPD Qualified Code(s): J44.9 - Chronic obstructive pulmonary disease, unspecified Is this a current diagnosis for this admission?: Yes Plan: Stable and without exacerbation at this time. Patient is provided supplemental oxygen as needed. As needed nebulizer treatments. Continue home dose trelegy. Monitor for need for steroid therapy. (4) Diabetes Qualifiers: Diabetes mellitus type: type 2 Diabetes mellitus terminal system operator insulin use: without terminal system operator use Diabetes mellitus complication status: with kidney complications Diabetes mellitus complication detail: with chronic kidney disease Chronic kidney disease stage: stage 3 (moderate) Qualified Code(s): E11.22 - Type 2 diabetes mellitus with diabetic chronic kidney disease; N18.3 - Chronic kidney disease, stage 3 (moderate) Is this a current diagnosis for this admission?: Yes Plan: A1c 5.2%; well-controlled Accu-Cheks before meals and at bedtime. Sliding scale insulin. (5) Tobacco dependence Is this a current diagnosis for this admission?: Yes Plan: Smoking cessation strongly encouraged. Nicotine or placement therapies provided. (6) Bacteremia Is this a current diagnosis for this admission?: Yes Plan: Blood cultures (4 of 4 bottles) kaiser sensitive e. coli; secondary to urinary tract infection. Repeat blood cultures negative Transition to p.o. Cipro for completion of antibiotic course. Patient's echo is questionable for LV wall thrombus. Spoke w/ Dr. Delgado, low suspicion but recommend RIMA to definitively rule out. RIMA scheduled at [facility] for Friday morning; must arrive by 8:30 If positive for thrombus, consider ID recommendations for length of antibiotic course. (7) Mural thrombus of cardiac apex Is this a current diagnosis for this admission?: No Plan: Patient confirms history of mural thrombus. 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 Now w/ bacteremia, although, likely secondary to UTI. Patient's echo is questionable for LV wall thrombus. Spoke w/ Dr. Delgado, low suspicion but recommend RIMA to definitively rule out. RIMA scheduled at [facility] for Friday; must arrive by 8:30 If positive, will need to resume chronic anticoagulation. - Time Time Spent with patient: 15-24 minutes Medications reviewed and adjusted accordingly: Yes Anticipated discharge: Home Within: within 72 hours - following RIMA
[2019-03-15] MEDS: CIPROFLOXACIN HCL 500 MG TABLET PO SCH (22:24)
[2019-03-16] MEDS: PANTOPRAZOLE SODIUM 40 MG TABLET.DR PO SCH (05:30)
[2019-03-16] MEDS: HEPARIN SOD (PORCINE) 5,000 UNIT/ML 1 ML VIAL SUBCUT SCH ×3 (05:30→21:14)
[2019-03-16] MEDS: OXYCODONE HCL IR 5 MG TABLET PO PRN ×3 (06:32→21:11)
[2019-03-16] MEDS: INSULIN LISPRO 100 UNIT/ML 3 ML VIAL SUBCUT SCH ×4 (08:27→21:48)
[2019-03-16] MEDS: METHADONE HCL 10 MG TABLET PO SCH ×2 (09:17→21:12)
[2019-03-16] MEDS: METOPROLOL SUCCINATE 25 MG TAB.SR.24H PO SCH (09:17)
[2019-03-16] MEDS: GABAPENTIN 300 MG CAPSULE PO SCH ×2 (09:17→21:12)
[2019-03-16] MEDS: FLUTICASONE/UMECLIDIN/VILANTER 100-62.5-25 MCG/DOSE IH SCH (09:17)
[2019-03-16] MEDS: PARICALCITOL 1 MCG CAPSULE PO SCH (09:17)
[2019-03-16] MEDS: FUROSEMIDE 40 MG TABLET PO SCH ×2 (09:17→17:16)
[2019-03-16] MEDS: RANOLAZINE 500 MG TAB.SR.12H PO SCH ×2 (09:18→21:12)
[2019-03-16] MEDS: DOCUSATE SODIUM 100 MG CAPSULE PO SCH (09:18)
[2019-03-16] MEDS: CIPROFLOXACIN HCL 500 MG TABLET PO SCH ×2 (09:18→21:13)
[2019-03-16] MEDS: ISOSORBIDE MONONITRATE 60 MG TAB.ER.24H PO SCH (09:18)
--- NOTE | 2019-03-16 09:43 | Progress Note Acknowledgement ---
Progress Note Acknowledgement Progess Note Acknowledgement: I, the undersigned member of the medical staff with appropriate privileges and with supervisory authority over [Daryl Vega], a dependent practice allied health professional, acknowledge that I have reviewed the progress notes entered on this patient, and in my professional judgment believe that the assessment made and/or any care evidenced was appropriate
--- NOTE | 2019-03-16 09:49 | PDOC PROGRESS REPORT ---
Subjective Progress Note for:: 03/16/19 Subjective:: March 16, 2019-no complaints this a.m. Reason For Visit: HEART FAILURE Physical Exam Vital Signs: Temp Pulse Resp BP Pulse Ox 97.9 F 54 L 19 153/51 H 95 03/16/19 08:00 03/16/19 08:00 03/16/19 08:00 03/16/19 08:00 03/16/19 08:00 Intake & Output 03/15/19 03/16/19 03/17/19 06:59 06:59 06:59 Intake Total 1290 530 Balance 1290 530 Weight 92.5 kg General appearance: PRESENT: no acute distress, well-developed, well-nourished Head exam: PRESENT: atraumatic, normocephalic Eye exam: PRESENT: conjunctiva pink, EOMI, PERRLA. ABSENT: scleral icterus Ear exam: PRESENT: normal external ear exam Mouth exam: PRESENT: moist, tongue midline Neck exam: ABSENT: carotid bruit, JVD, lymphadenopathy, thyromegaly Respiratory exam: PRESENT: clear to auscultation jovan. ABSENT: rales, rhonchi, wheezes Cardiovascular exam: PRESENT: RRR. ABSENT: diastolic murmur, rubs, systolic murmur Pulses: PRESENT: normal dorsalis pedis pul Vascular exam: PRESENT: normal capillary refill GI/Abdominal exam: PRESENT: normal bowel sounds, soft. ABSENT: distended, guarding, mass, organolmegaly, rebound, tenderness Rectal exam: PRESENT: deferred Extremities exam: PRESENT: full ROM. ABSENT: calf tenderness, clubbing, pedal edema Neurological exam: PRESENT: alert, awake, oriented to person, oriented to place, oriented to time, oriented to situation, CN II-XII grossly intact. ABSENT: motor sensory deficit Psychiatric exam: PRESENT: appropriate affect, normal mood. ABSENT: homicidal ideation, suicidal ideation Skin exam: PRESENT: dry, intact, warm. ABSENT: cyanosis, rash Results Laboratory Results: 03/14/19 06:10 03/14/19 06:10 03/11/19 03/11/19 03/11/19 01:30 01:30 01:30 Creatine Kinase 86 CK-MB (CK-2) 1.32 Troponin I 0.067 NT-Pro-B Natriuret Pep 9260 H 03/11/19 03/11/19 03/11/19 03:52 12:54 15:19 Creatine Kinase CK-MB (CK-2) Troponin I 0.059 0.057 0.047 NT-Pro-B Natriuret Pep 03/12/19 06:00 Creatine Kinase CK-MB (CK-2) Troponin I NT-Pro-B Natriuret Pep 7220 H Impressions: Chest X-Ray 03/11/19 05:14 IMPRESSION: No significant change compared to the prior exam. copyright 2010 [employer]- All Rights Reserved Assessment and Plan - Diagnosis (1) CHF exacerbation Qualifiers: Heart failure type: unspecified Qualified Code(s): I50.9 - Heart failure, unspecified Is this a current diagnosis for this admission?: Yes Plan: Resolved; now maintianing saturations on room air while ambulatory Patient was admitted with complaint of progressively worsening fatigue, dyspnea on exertion, orthopnea, and dependent edema. Chest x-rays are benign. EKG demonstrates Normal sinus rhythm. Troponins are indeterminately elevated but negative; 0.067-> 0.059-> 0.057-> 0.047 proBNP elevated to 9260-> 7220 Echocardiogram pending. Down ~14 kg Patient is admitted to telemetry. Home medication regiment of isosorbide, metoprolol, Ranexa are continued. Continue p.o. furosemide Cardiac diet. Daily weights, strict I'&O's. March 16, 2019-resolved at this time. Patient remains on Lasix 40 g p.o. twice daily. Continue strict JELENA's daily weights. Patient continue home medications as Ovide, metoprolol and Ranexa. (2) Urinary tract infection Qualifiers: Urinary tract infection type: acute cystitis Hematuria presence: with hematuria Qualified Code(s): N30.01 - Acute cystitis with hematuria Is this a current diagnosis for this admission?: Yes Plan: Urinalysis positive for UTI. Blood cultures (4/4 bottles) kaiser sensitive e.coli Urine culture shows kaiser sensitive e. coli Repeat blood cultures (03/12/19) negative Patient is empirically placed on IV Rocephin; Day #5. Transition to p.o. Cipro for completion of course of therapy. March 16, 2019-patient continues on Cipro p.o. (3) COPD exacerbation Is this a current diagnosis for this admission?: Yes Plan: March 16, 2019-stable. Continue supplement oxygen as needed, nebulizers and home therapy. (4) Diabetes Qualifiers: Diabetes mellitus type: type 2 Diabetes mellitus termite control representative insulin use: without correction use Diabetes mellitus complication status: with kidney complications Diabetes mellitus complication detail: with chronic kidney disease Chronic kidney disease stage: stage 3 (moderate) Qualified Code(s): E11.22 - Type 2 diabetes mellitus with diabetic chronic kidney disease; N18.3 - Chronic kidney disease, stage 3 (moderate) Is this a current diagnosis for this admission?: Yes Plan: A1c 5.2%; well-controlled Accu-Cheks before meals and at bedtime. Sliding scale insulin. March 16, [id number] continue sliding scale coverage before meals and at bedtime as needed. (5) Mural thrombus of cardiac apex Is this a current diagnosis for this admission?: No Plan: Patient confirms history of mural thrombus. 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 Now w/ bacteremia, although, likely secondary to UTI. Patient's echo is questionable for LV wall thrombus. Spoke w/ Dr. Delgado, low suspicion but recommend RIMA to definitively rule out. RIMA scheduled at [facility] for Friday morning; must arrive by 8:30 If positive, will need to resume chronic anticoagulation. March 16, 2019-patient to go for RIMA tomorrow. If positive will start patient on heparin and Coumadin dosing to get therapeutic for an INR of 2-3. If not we will DC patient home tomorrow. We will continue to follow. - Time Time Spent with patient: 15-24 minutes - Inpatient Certification Based on my medical assessment, after consideration of the patient's comorbidities, presenting symptoms, or acuity I expect that the services needed warrant INPATIENT care.: Yes I certify that my determination is in accordance with my understanding of Medicare's requirements for reasonable and necessary INPATIENT services [42 CFR 412.3e].: Yes Medical Necessity: Other - RIMA, possible IV heparin and Coumadin dosing
[2019-03-16 11:37] LABS: HEPATITS B SURFACE ANTIGEN Negative (Negative)
[2019-03-16 14:33] LABS: HEPATITIS C VIRUS ANTIBODY <0.1 s/co ratio (0.0-0.9)
[2019-03-16] MEDS: NICOTINE 21 MG/24 HR PATCH.TD24 TD SCH (15:23)
[2019-03-17] MEDS: MELATONIN 3 MG TABLET PO PRN (00:04)
[2019-03-17] MEDS: HEPARIN SOD (PORCINE) 5,000 UNIT/ML 1 ML VIAL SUBCUT SCH ×3 (05:09→22:08)
[2019-03-17] MEDS: PANTOPRAZOLE SODIUM 40 MG TABLET.DR PO SCH (05:09)
[2019-03-17] MEDS: INSULIN LISPRO 100 UNIT/ML 3 ML VIAL SUBCUT SCH ×4 (07:58→22:07)
[2019-03-17] MEDS: OXYCODONE HCL IR 5 MG TABLET PO PRN ×3 (08:57→22:12)
[2019-03-17] MEDS: METOPROLOL SUCCINATE 25 MG TAB.SR.24H PO SCH (10:45)
[2019-03-17] MEDS: GABAPENTIN 300 MG CAPSULE PO SCH ×2 (10:45→22:12)
[2019-03-17] MEDS: NICOTINE 21 MG/24 HR PATCH.TD24 TD SCH (10:46)
[2019-03-17] MEDS: FUROSEMIDE 40 MG TABLET PO SCH ×2 (10:46→18:55)
[2019-03-17] MEDS: DOCUSATE SODIUM 100 MG CAPSULE PO SCH (10:46)
[2019-03-17] MEDS: ISOSORBIDE MONONITRATE 60 MG TAB.ER.24H PO SCH (10:46)
[2019-03-17] MEDS: RANOLAZINE 500 MG TAB.SR.12H PO SCH ×2 (10:47→22:11)
[2019-03-17] MEDS: CIPROFLOXACIN HCL 500 MG TABLET PO SCH ×2 (10:47→22:11)
[2019-03-17] MEDS: PARICALCITOL 1 MCG CAPSULE PO SCH (10:47)
[2019-03-17] MEDS: FLUTICASONE/UMECLIDIN/VILANTER 100-62.5-25 MCG/DOSE IH SCH (10:48)
[2019-03-17] MEDS: METHADONE HCL 10 MG TABLET PO SCH ×2 (10:56→22:11)
[2019-03-17 13:00] LABS: HEMATOCRIT 33.3 % (36.0-47.0); HEMOGLOBIN 11.3 g/dL (12.0-15.5); MEAN CORPUSCULAR HEMOGLOBIN 33.9 pg (27.0-33.4); MEAN CORPUSCULAR HGB CONC 33.9 g/dL (32.0-36.0); MEAN CORPUSCULAR VOLUME 100 fl (80-97); PLATELET COUNT 248 10^3/uL (150-450); RED BLOOD COUNT 3.33 10^6/uL (3.72-5.28); RED CELL DISTRIBUTION WIDTH 13.3 % (11.5-14.0); WHITE BLOOD COUNT 6.1 10^3/uL (4.0-10.5)
--- NOTE | 2019-03-17 13:12 | PDOC PROGRESS REPORT ---
Subjective Progress Note for:: 03/17/19 Subjective:: March 16, 2019-no complaints this a.m. Reason For Visit: HEART FAILURE Physical Exam Vital Signs: Temp Pulse Resp BP Pulse Ox 98.2 F 54 L 18 135/41 H 95 03/17/19 08:51 03/17/19 08:51 03/17/19 08:51 03/17/19 08:51 03/17/19 08:51 Intake & Output 03/16/19 03/17/19 03/18/19 06:59 06:59 06:59 Intake Total 530 680 Balance 530 680 Weight 93.3 kg 93.5 kg General appearance: PRESENT: no acute distress, well-developed, well-nourished Head exam: PRESENT: atraumatic, normocephalic Eye exam: PRESENT: conjunctiva pink, EOMI, PERRLA. ABSENT: scleral icterus Ear exam: PRESENT: normal external ear exam Mouth exam: PRESENT: moist, tongue midline Neck exam: ABSENT: carotid bruit, JVD, lymphadenopathy, thyromegaly Respiratory exam: PRESENT: clear to auscultation jovan. ABSENT: rales, rhonchi, wheezes Cardiovascular exam: PRESENT: RRR. ABSENT: diastolic murmur, rubs, systolic murmur Pulses: PRESENT: normal dorsalis pedis pul Vascular exam: PRESENT: normal capillary refill GI/Abdominal exam: PRESENT: normal bowel sounds, soft. ABSENT: distended, guarding, mass, organolmegaly, rebound, tenderness Rectal exam: PRESENT: deferred Extremities exam: PRESENT: full ROM. ABSENT: calf tenderness, clubbing, pedal edema Neurological exam: PRESENT: alert, awake, oriented to person, oriented to place, oriented to time, oriented to situation, CN II-XII grossly intact. ABSENT: motor sensory deficit Psychiatric exam: PRESENT: appropriate affect, normal mood. ABSENT: homicidal ideation, suicidal ideation Skin exam: PRESENT: dry, intact, warm. ABSENT: cyanosis, rash Results Laboratory Results: 03/17/19 12:47 03/17/19 12:47 WBC 6.1 RBC 3.33 L Hgb 11.3 L Hct 33.3 L MCV 100 H MCH 33.9 H MCHC 33.9 RDW 13.3 Plt Count 248 03/12/19 07:44 Blood Blood Culture - Final NO GROWTH IN 5 DAYS 03/12/19 06:00 Blood Blood Culture - Final NO GROWTH IN 5 DAYS 03/11/19 03/11/19 03/11/19 01:30 01:30 01:30 Creatine Kinase 86 CK-MB (CK-2) 1.32 Troponin I 0.067 NT-Pro-B Natriuret Pep 9260 H 03/11/19 03/11/19 03/11/19 03:52 12:54 15:19 Creatine Kinase CK-MB (CK-2) Troponin I 0.059 0.057 0.047 NT-Pro-B Natriuret Pep 03/12/19 06:00 Creatine Kinase CK-MB (CK-2) Troponin I NT-Pro-B Natriuret Pep 7220 H Impressions: Chest X-Ray 03/11/19 05:14 IMPRESSION: No significant change compared to the prior exam. copyright 2010 [employer]- All Rights Reserved Assessment and Plan - Diagnosis (1) CHF exacerbation Qualifiers: Heart failure type: unspecified Qualified Code(s): I50.9 - Heart failure, unspecified Is this a current diagnosis for this admission?: Yes Plan: Resolved; now maintianing saturations on room air while ambulatory Patient was admitted with complaint of progressively worsening fatigue, dyspnea on exertion, orthopnea, and dependent edema. Chest x-rays are benign. EKG demonstrates Normal sinus rhythm. Troponins are indeterminately elevated but negative; 0.067-> 0.059-> 0.057-> 0.047 proBNP elevated to 9260-> 7220 Echocardiogram pending. Down ~14 kg Patient is admitted to telemetry. Home medication regiment of isosorbide, metoprolol, Ranexa are continued. Continue p.o. furosemide Cardiac diet. Daily weights, strict I'&O's. March 16, 2019-resolved at this time. Patient remains on Lasix 40 g p.o. twice daily. Continue strict JELENA's daily weights. Patient continue home medications as isosorbide, metoprolol and Ranexa March 17, 2019-continued resolution. Continue medications as ordered. (2) Urinary tract infection Qualifiers: Urinary tract infection type: acute cystitis Hematuria presence: with hematuria Qualified Code(s): N30.01 - Acute cystitis with hematuria Is this a current diagnosis for this admission?: Yes Plan: Urinalysis positive for UTI. Blood cultures (4/4 bottles) kaiser sensitive e.coli Urine culture shows kaiser sensitive e. coli Repeat blood cultures (03/12/19) negative Patient is empirically placed on IV Rocephin; Day #5. Transition to p.o. Cipro for completion of course of therapy. March 16, 2019-patient continues on Cipro p.o. March 17, 2019-Cipro p.o. Continue for a full 10-day course. (3) COPD exacerbation Is this a current diagnosis for this admission?: Yes Plan: March 16, 2019-stable. Continue supplement oxygen as needed, nebulizers and home therapy. March 17 1219-stable (4) Diabetes Qualifiers: Diabetes mellitus type: type 2 Diabetes mellitus fdc insulin use: without fdc use Diabetes mellitus complication status: with kidney complications Diabetes mellitus complication detail: with chronic kidney disease Chronic kidney disease stage: stage 3 (moderate) Qualified Code(s): E11.22 - Type 2 diabetes mellitus with diabetic chronic kidney disease; N18.3 - Chronic kidney disease, stage 3 (moderate) Is this a current diagnosis for this admission?: Yes Plan: A1c 5.2%; well-controlled Accu-Cheks before meals and at bedtime. Sliding scale insulin. March 16, [id number] continue sliding scale coverage before meals and at bedtime as needed. March 17, 2019-continue sliding scale insulin (5) Mural thrombus of cardiac apex Is this a current diagnosis for this admission?: No Plan: Patient confirms history of mural thrombus. 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 Now w/ bacteremia, although, likely secondary to UTI. Patient's echo is questionable for LV wall thrombus. Spoke w/ Dr. Delgado, low suspicion but recommend RIMA to definitively rule out. RIMA scheduled at [facility] for Friday morning; must arrive by 8:30 If positive, will need to resume chronic anticoagulation. March 16, 2019-patient to go for RIMA tomorrow. If positive will start patient on heparin and Coumadin dosing to get therapeutic for an INR of 2-3. If not we will DC patient home tomorrow. We will continue to follow. March 17, 2019-patient unable to have RIMA today plan for RIMA tomorrow we will wait and see if there is a mural thrombus treat as appropriate. - Time Time Spent with patient: 15-24 minutes - Inpatient Certification Based on my medical assessment, after consideration of the patient's comorbidities, presenting symptoms, or acuity I expect that the services needed warrant INPATIENT care.: Yes I certify that my determination is in accordance with my understanding of Medicare's requirements for reasonable and necessary INPATIENT services [42 CFR 412.3e].: Yes Medical Necessity: Other - RIMA
[2019-03-17 13:21] LABS: ANION GAP 5 (5-19); BLOOD UREA NITROGEN 22 mg/dL (7-20); CALCIUM 9.4 mg/dL (8.4-10.2); CARBON DIOXIDE 35 mmol/L (22-30); CHLORIDE 97 mmol/L (98-107); GLUCOSE 149 mg/dL (75-110); POTASSIUM 3.8 mmol/L (3.6-5.0)
[2019-03-18] MEDS: MELATONIN 3 MG TABLET PO PRN (00:38)
[2019-03-18] MEDS: PANTOPRAZOLE SODIUM 40 MG TABLET.DR PO SCH (05:13)
[2019-03-18] MEDS: HEPARIN SOD (PORCINE) 5,000 UNIT/ML 1 ML VIAL SUBCUT SCH (05:13)
[2019-03-18] MEDS: OXYCODONE HCL IR 5 MG TABLET PO PRN (07:02)
--- NOTE | 2019-03-18 10:38 | PDOC DISCHARGE SUMMARY ---
General - Admit/Disc Date/PCP Admission Date/Primary Care Provider: 03/11/19 08:31 BECKI DIXON MD Discharge Date: 03/18/19 - Discharge Diagnosis (1) CHF exacerbation Is this a current diagnosis for this admission?: Yes (2) Urinary tract infection Is this a current diagnosis for this admission?: Yes (3) COPD exacerbation Is this a current diagnosis for this admission?: Yes (4) Diabetes Is this a current diagnosis for this admission?: Yes (5) Mural thrombus of cardiac apex Is this a current diagnosis for this admission?: No - Additional Information Resuscitation Status: Full Code Discharge Diet: Cardiac, Diabetic Discharge Activity: Activity As Tolerated, Balance Activity w/Rest, Weigh Daily Prescriptions: Ciprofloxacin HCl [Cipro 500 mg Tablet] 500 mg PO BID #10 tablet Home Medications: Albuterol Sulfate [Proair Respiclick] 2 puff IH Q6HP PRN 02/04/17 Gabapentin [Neurontin 300 mg Capsule] 600 mg PO Q12 02/04/17 Methadone HCl [Dolophine HCl] 5 mg PO Q12 02/04/17 Omeprazole 40 mg PO DAILY 02/04/17 Oxycodone HCl 15 mg PO Q6HP PRN MDD 3 tabs 02/04/17 Docusate Sodium [Colace 100 mg Capsule] 100 mg PO BIDP PRN 03/11/19 Fluticasone/Umeclidin/Vilanter [Trelegy 100-62.5-25 Mcg Ellipta 14 Dose/Dpi] 1 inh IH DAILY 03/11/19 Furosemide [Lasix 40 mg Tablet] 40 mg PO BID 03/11/19 Glipizide [Glipizide Xl] 5 mg PO DAILY 03/11/19 Isosorbide Mononitrate [Imdur 60 mg Tablet.er] 60 mg PO DAILY 03/11/19 Metoprolol Succinate [Toprol Xl 25 mg Tab.sr] 12.5 mg PO DAILY 03/11/19 Paricalcitol 1 mcg PO DAILY 03/11/19 Potassium Chloride [Klor-Con M10] 10 meq PO BID 03/11/19 Ranolazine [Ranolazine ER] 500 mg PO Q12 03/11/19 Acetaminophen [Tylenol 325 mg Tablet] 650 mg PO Q4HP PRN tablet 03/15/19 Ciprofloxacin HCl [Cipro 500 mg Tablet] 500 mg PO BID #10 tablet 03/15/19 Docusate Sodium [Colace 100 mg Capsule] 100 mg PO DAILY capsule 03/15/19 History of Present Illness Patient complains of: None this a.m. History of Present Illness: WILNER CONSTANTINO is a 63 year old female who was admitted for complaints of worsening dyspnea and orthopnea, generalized malaise and fever. Patient was found to have a temperature of 101.5 tachypnea and baseline creatinine 1.4. Hospital Course Hospital Course: Patient was admitted for complaints of general gradually worsening dyspnea, orthopnea general malaise and fever at home. Patient was found to have a fever of one 1.5, tachypnea, baseline creatinine 1.40, troponin 0 0.067, elevated BNP of 9000, urinalysis positive for urinary tract infection. Patient was admitted for these complaints and had a complete work-up medical work-up. Patient was treated aggressively for UTI and has had 8 days of qualifying antibiotic therapy for E. coli UTI. I will not send her home on antibiotics at this time. Patient showed gradual improvement with her COPD exacerbation although she continues to smoke. Patient was also transferred to [place] for a RIMA which was negative for thick mural thrombus. At this time patient improved sufficiently to return home. She will follow-up with her primary care practitioner within 1 week. She will be educated continue thinking about cessation of smoking. She will continue all home medications as before. She will return for any further complaints or concerns. Physical Exam Vital Signs: Temp Pulse Resp BP Pulse Ox 98.4 F 69 18 151/56 H 92 03/18/19 00:07 03/18/19 02:00 03/18/19 00:07 03/18/19 00:07 03/18/19 00:07 Intake & Output 03/17/19 03/18/19 03/19/19 06:59 06:59 06:59 Intake Total 680 480 Balance 680 480 Weight 93.5 kg 94.9 kg General appearance: PRESENT: no acute distress, well-developed, well-nourished Head exam: PRESENT: atraumatic, normocephalic Eye exam: PRESENT: conjunctiva pink, EOMI, PERRLA. ABSENT: scleral icterus Ear exam: PRESENT: normal external ear exam Mouth exam: PRESENT: moist, tongue midline Neck exam: ABSENT: carotid bruit, JVD, lymphadenopathy, thyromegaly Respiratory exam: PRESENT: clear to auscultation jovan. ABSENT: rales, rhonchi, wheezes Cardiovascular exam: PRESENT: RRR. ABSENT: diastolic murmur, rubs, systolic murmur Pulses: PRESENT: normal dorsalis pedis pul Vascular exam: PRESENT: normal capillary refill GI/Abdominal exam: PRESENT: normal bowel sounds, soft. ABSENT: distended, guarding, mass, organolmegaly, rebound, tenderness Rectal exam: PRESENT: deferred Extremities exam: PRESENT: full ROM. ABSENT: calf tenderness, clubbing, pedal edema Neurological exam: PRESENT: alert, awake, oriented to person, oriented to place, oriented to time, oriented to situation, CN II-XII grossly intact. ABSENT: motor sensory deficit Psychiatric exam: PRESENT: appropriate affect, normal mood. ABSENT: homicidal ideation, suicidal ideation Skin exam: PRESENT: dry, intact, warm. ABSENT: cyanosis, rash Results Laboratory Results: 03/17/19 12:47 03/17/19 12:47 03/17/19 03/17/19 12:47 12:47 WBC 6.1 RBC 3.33 L Hgb 11.3 L Hct 33.3 L MCV 100 H MCH 33.9 H MCHC 33.9 RDW 13.3 Plt Count 248 Sodium 137.3 Potassium 3.8 Chloride 97 L Carbon Dioxide 35 H Anion Gap 5 BUN 22 H Creatinine 1.49 H Est GFR ( Amer) 43 L Est GFR (Non-Af Amer) 35 L Glucose 149 H Calcium 9.4 03/12/19 07:44 Blood Blood Culture - Final NO GROWTH IN 5 DAYS 03/11/19 03/11/19 03/11/19 01:30 01:30 01:30 Creatine Kinase 86 CK-MB (CK-2) 1.32 Troponin I 0.067 NT-Pro-B Natriuret Pep 9260 H 03/11/19 03/11/19 03/11/19 03:52 12:54 15:19 Creatine Kinase CK-MB (CK-2) Troponin I 0.059 0.057 0.047 NT-Pro-B Natriuret Pep 03/12/19 06:00 Creatine Kinase CK-MB (CK-2) Troponin I NT-Pro-B Natriuret Pep 7220 H Impressions: Chest X-Ray 03/11/19 05:14 IMPRESSION: No significant change compared to the prior exam. copyright 2011 [facility] [employer]- All Rights Reserved Qualifiers - * PATIENT BEING DISCHARGED WITH ANY OF THE FOLLOWING DIAGNOSIS: No Acute Heart Failure - Is this a Heart Failure Patient?: No Plan Time Spent: Greater than 30 Minutes
[2019-03-18] MEDS: INSULIN LISPRO 100 UNIT/ML 3 ML VIAL SUBCUT SCH ×2 (12:24→12:25)
[2019-03-18] MEDS: METHADONE HCL 10 MG TABLET PO SCH (12:31)
[2019-03-18] MEDS: NICOTINE 21 MG/24 HR PATCH.TD24 TD SCH (12:33)
[2019-03-18] MEDS: METOPROLOL SUCCINATE 25 MG TAB.SR.24H PO SCH (12:34)
[2019-03-18] MEDS: DOCUSATE SODIUM 100 MG CAPSULE PO SCH (12:34)
[2019-03-18] MEDS: FUROSEMIDE 40 MG TABLET PO SCH (12:34)
[2019-03-18] MEDS: GABAPENTIN 300 MG CAPSULE PO SCH (12:34)
[2019-03-18] MEDS: RANOLAZINE 500 MG TAB.SR.12H PO SCH (12:35)
[2019-03-18] MEDS: ISOSORBIDE MONONITRATE 60 MG TAB.ER.24H PO SCH (12:35)
[2019-03-18] MEDS: FLUTICASONE/UMECLIDIN/VILANTER 100-62.5-25 MCG/DOSE IH SCH (12:36)
[2019-03-18] MEDS: PARICALCITOL 1 MCG CAPSULE PO SCH (12:36)
[2019-03-18] MEDS: CIPROFLOXACIN HCL 500 MG TABLET PO SCH (12:36)
[2019-03-18 12:56] VITALS: BP 153/51
== END 2019-03-18 13:45 | disposition home or self-care (01) | DRG 291 ==
LOC: ER 22:02 → EH 03-11 08:31 → UNDOADMIN 03-11 08:31 → 3W 03-11 11:43 → 4N 03-11 18:26
PROVIDERS: ADMIT Internal Medicine; ATTEND Internal Medicine
DX: I13.0 Hypertensive heart and chronic kidney disease with heart failure and stage 1 through stage 4 chronic kidney disease, or unspecified chronic kidney disease (principal); I50.33 Acute on chronic diastolic (congestive) heart failure; J44.1 Chronic obstructive pulmonary disease with (acute) exacerbation; R78.81 Bacteremia; E11.22 Type 2 diabetes mellitus with diabetic chronic kidney disease; N30.91 Cystitis, unspecified with hematuria; N18.3 Chronic kidney disease, stage 3 (moderate); B96.20 Unspecified Escherichia coli [E. coli] as the cause of diseases classified elsewhere; E78.5 Hyperlipidemia, unspecified; I25.10 Atherosclerotic heart disease of native coronary artery without angina pectoris; M79.7 Fibromyalgia; F17.210 Nicotine dependence, cigarettes, uncomplicated; E66.9 Obesity, unspecified; M54.9 Dorsalgia, unspecified; G89.29 Other chronic pain; Z79.84 Long term (current) use of oral hypoglycemic drugs; I25.2 Old myocardial infarction; Z95.5 Presence of coronary angioplasty implant and graft; Z86.73 Personal history of transient ischemic attack (TIA), and cerebral infarction without residual deficits; Z86.718 Personal history of other venous thrombosis and embolism; Z85.43 Personal history of malignant neoplasm of ovary; Z88.6 Allergy status to analgesic agent; Z91.048 Other nonmedicinal substance allergy status; Z68.33 Body mass index [BMI] 33.0-33.9, adult
CPT/HCPCS: 36415; 71045; 80048; 80053; 80061; 80074; 81001; 82550; 82553; 82803; 82962; 83036; 83880; 84484; 85025; 85027; 87040; 87077; 87086; 87088; 87186; 93005; 93010; 93306; 94640; 96365; 96375; 99285; J0696; J1642; J1644; J1940; J2405; J3010; J3490; J7060; J7620

== ENCOUNTER → 2019-04-05 | Outpatient (CLI) | payer MEDICARE, MEDICAID ==
[2019-04-05 09:49] LABS: ALBUMIN 3.1 g/dL (3.5-5.0); ANION GAP 6 (5-19); BLOOD UREA NITROGEN 33 mg/dL (7-20); CALCIUM 9.9 mg/dL (8.4-10.2); CARBON DIOXIDE 25 mmol/L (22-30); CHLORIDE 109 mmol/L (98-107); GLUCOSE 143 mg/dL (75-110); POTASSIUM 4.2 mmol/L (3.6-5.0)
== END ==
LOC: OD 09:08
PROVIDERS: ATTEND Internal Medicine Nephrology
DX: E11.22 Type 2 diabetes mellitus with diabetic chronic kidney disease (principal); I12.9 Hypertensive chronic kidney disease with stage 1 through stage 4 chronic kidney disease, or unspecified chronic kidney disease; N18.3 Chronic kidney disease, stage 3 (moderate); N25.81 Secondary hyperparathyroidism of renal origin
CPT/HCPCS: 36415; 80048; 82040; 83970

== ENCOUNTER → 2019-06-29 | Outpatient (CLI) | payer MEDICARE, MEDICAID ==
--- NOTE | 2019-06-29 12:15 | EKG REPORT ---
SEVERITY:- ABNORMAL ECG - SINUS RHYTHM NONSPECIFIC T ABNORMALITIES, ANT-LAT LEADS : Confirmed by: Enrico Warner MD 29-Jun-2019 12:14:14
[2019-06-29 12:42] LABS: ALBUMIN 3.5 g/dL (3.5-5.0); ANION GAP 8 (5-19); BLOOD UREA NITROGEN 36 mg/dL (7-20); CALCIUM 10.1 mg/dL (8.4-10.2); CARBON DIOXIDE 28 mmol/L (22-30); CHLORIDE 102 mmol/L (98-107); GLUCOSE 108 mg/dL (75-110); POTASSIUM 4.8 mmol/L (3.6-5.0)
== END ==
LOC: OD 11:29
PROVIDERS: ATTEND Internal Medicine Nephrology
DX: I12.9 Hypertensive chronic kidney disease with stage 1 through stage 4 chronic kidney disease, or unspecified chronic kidney disease (principal); E11.22 Type 2 diabetes mellitus with diabetic chronic kidney disease; N18.3 Chronic kidney disease, stage 3 (moderate); N25.81 Secondary hyperparathyroidism of renal origin
CPT/HCPCS: 36415; 80048; 82040; 83970; 93005; 93010

== ENCOUNTER 2019-07-27 16:31 | Inpatient (IN) | payer MEDICARE, MEDICAID ==
--- NOTE | 2019-07-27 16:52 | ER Document Report ---
ED Respiratory Problem - General Chief Complaint: Shortness Of Breath Stated Complaint: SHORTNESS OF BREATHE Time Seen by Provider: 07/27/19 16:47 Primary Care Provider: ANA CUETO MD [ACTIVE STAFF] - Follow up as needed Mode of Arrival: Medic Information source: Patient TRAVEL OUTSIDE OF THE [place] IN LAST 30 DAYS: No - HPI Patient complains to provider of: CHF, COPD, Cough, Short of breath, Other - White productive cough. Denies any chest pain. Patient has a history of CHF and recently was decreased on her 20 mg twice daily Lasix. Patient was told to stop the medication for 2 days and began back at 1 dose at 20 mg once a day. Last breathing treatment today was done at 2:00. Onset: Other - 3 days Initiating Event: Other - No other contributing initiating event for this worsening shortness of breath. Quality of pain: No pain Severity: Moderate Pain Level: 0 Short of Breath: Moderate Sputum amount: Small Sputum color: White Sputum consistency: Frothy At home treatment: Bronchodilators EMS treatments: CPAP Associated symptoms: Congestion, Wheezing Similar symptoms previously: Yes - Related Data Allergies/Adverse Reactions: morphine [Morphine] Allergy (Verified 01/15/19 10:43) Plastic tape Allergy (Uncoded 01/15/19 10:43) Past Medical History - Social History Smoking Status: Former Smoker Frequency of alcohol use: None Lives with: Family Family History: Reviewed & Not Pertinent Patient has suicidal ideation: No Patient has homicidal ideation: No - Past Medical History Cardiac Medical History: Reports: Hx Coronary Artery Disease, Hx DVT, Hx Hypercholesterolemia, Hx Hypertension Denies: Hx Heart Attack Pulmonary Medical History: Reports: Hx Asthma, Hx Bronchitis, Hx COPD, Hx Pneumonia Denies: Hx Tuberculosis Neurological Medical History: Reports: Hx Cerebrovascular Accident - CVA 2012 L sided-weakness. Denies: Hx Seizures Endocrine Medical History: Reports: Hx Diabetes Mellitus Type 2. Denies: Hx Hypothyroidism Renal/ Medical History: Reports: Hx Kidney Stones. Denies: Hx End Stage Renal Disease, Hx Peritoneal Dialysis Malignancy Medical History: Reports: Hx Ovarian Cancer Musculoskeletal Medical History: Denies Hx Arthritis, Reports Hx Fibromyalgia Psychiatric Medical History: Denies: Hx Depression Past Surgical History: Reports: Hx Cardiac Catheterization, Hx Hysterectomy, Hx Kidney (Renal Surgery), Hx Orthopedic Surgery - carpal tunnel, right medial nerve reconstruction, Hx Tubal Ligation. Denies: Hx Appendectomy, Hx Bowel Surgery, Hx Section, Hx Cholecystectomy, Hx Coronary Artery Bypass Graft, Hx Gastric Bypass Surgery, Hx Herniorrhaphy, Hx Mastectomy, Hx Pacemaker, Hx Tonsillectomy - Immunizations Hx Diphtheria, Pertussis, Tetanus Vaccination: Yes Hx Pneumococcal Vaccination: 03/25/12 Physical Exam - Vital signs Vitals: Temp Pulse Ox 97.8 F 100 07/27/19 16:35 07/27/19 16:35 Interpretation: Normal - Notes Notes: Obese female, in moderate distress on a BiPAP facemask at this time. - General General appearance: Appears well, Alert - HEENT Head: Normocephalic, Atraumatic Eyes: Normal Pupils: PERRL - Respiratory Respiratory status: No respiratory distress, Respiratory distress Chest status: Nontender Breath sounds: Normal, Rhonchi, Wheezing Chest palpation: Normal - Cardiovascular Rhythm: Regular Heart sounds: Normal auscultation Murmur: No Friction rub: No - Abdominal Inspection: Normal Distension: No distension Bowel sounds: Normal Tenderness: Nontender Organomegaly: No organomegaly - Back Back: Normal, Nontender - Extremities General upper extremity: Normal inspection, Nontender, Normal color, Normal ROM, Normal temperature General lower extremity: Normal inspection, Nontender, Normal color, Normal ROM, Normal temperature, Normal weight bearing. No: Angela's sign - Neurological Neuro grossly intact: Yes Cognition: Normal Orientation: AAOx4 [place] Coma Scale Eye Opening: Spontaneous [place] Coma Scale Verbal: Oriented Leilani Coma Scale Motor: Obeys Commands [place] Coma Scale Total: 15 Speech: Normal Motor strength normal: LUE, RUE, LLE, RLE Sensory: Normal - Psychological Associated symptoms: Normal affect, Normal mood - Skin Skin Temperature: Warm Skin Moisture: Dry Skin Color: Normal Course - Vital Signs Vital signs: Temp Pulse Resp BP Pulse Ox 98.1 F 78 21 H 91/57 L 97 07/27/19 19:32 07/27/19 19:32 07/27/19 20:41 07/27/19 20:41 07/27/19 20:41 - Laboratory Result Diagrams: 07/27/19 16:52 07/27/19 16:52 Laboratory results interpreted by me: 07/27/19 07/27/19 07/27/19 16:52 16:52 16:52 RBC 3.69 L MCV 101 H MCH 33.8 H Creatinine 1.49 H Est GFR ( Amer) 43 L Est GFR (MDRD) Non-Af 35 L NT-Pro-B Natriuret Pep 3010 H Total Protein 5.6 L Albumin 3.0 L Discharge - Discharge Clinical Impression: COPD (chronic obstructive pulmonary disease), CHF (congestive heart failure), CHF exacerbation, Acute bronchospasm Condition: Fair Disposition: ADMITTED INPATIENT Admitting Provider: Donell (Hospitalist) Unit Admitted: Telemetry Referrals: ANA CUETO MD [ACTIVE STAFF] - Follow up as needed
[2019-07-27] MEDS ORDERED: ALBUTEROL SULFATE 0.083% NEB 2.5 MG/3 ML AMPUL NEB ONE (16:55)
[2019-07-27 17:06] LABS: ABSOLUTE LYMPHOCYTES (AUTO) 1.4 10^3/uL (0.5-4.7); ABSOLUTE MONOCYTES (AUTO) 0.4 10^3/uL (0.1-1.4); ABSOLUTE NEUT (AUTO) 3.2 10^3/uL (1.7-8.2); BASOPHILS % (AUTO) 0.2 % (0-2); EOSINOPHILS % (AUTO) 0.6 % (0-6); HEMATOCRIT 37.1 % (36.0-47.0); HEMOGLOBIN 12.5 g/dL (12.0-15.5); LYMPHOCYTES % (AUTO) 28.3 % (13-45); MEAN CORPUSCULAR HEMOGLOBIN 33.8 pg (27.0-33.4); MEAN CORPUSCULAR HGB CONC 33.6 g/dL (32.0-36.0); MEAN CORPUSCULAR VOLUME 101 fl (80-97); MONOCYTES % (AUTO) 7.8 % (3-13); PLATELET COUNT 168 10^3/uL (150-450); RED BLOOD COUNT 3.69 10^6/uL (3.72-5.28); RED CELL DISTRIBUTION WIDTH 13.2 % (11.5-14.0); SEGMENTED NEUTROPHILS % (AUTO) 63.1 % (42-78); TOTAL CELLS COUNTED % (AUTO) 100 %; WHITE BLOOD COUNT 5.1 10^3/uL (4.0-10.5)
[2019-07-27 17:27] LABS: ALKALINE PHOSPHATASE 75 U/L (38-126); ANION GAP 8 (5-19); ASPARTATE AMINO TRANSFERASE 22 U/L (14-36); BILIRUBIN,DIRECT 0.2 mg/dL (0.0-0.4); BILIRUBIN,TOTAL 0.5 mg/dL (0.2-1.3); BLOOD UREA NITROGEN 19 mg/dL (7-20); CALCIUM 9.4 mg/dL (8.4-10.2); CARBON DIOXIDE 25 mmol/L (22-30); CHLORIDE 106 mmol/L (98-107); GLUCOSE 85 mg/dL (75-110); POTASSIUM 4.4 mmol/L (3.6-5.0); TOTAL PROTEIN 5.6 g/dL (6.3-8.2)
[2019-07-27 17:37] LABS: TROPONIN I 0.027 ng/mL
--- NOTE | 2019-07-27 17:41 | RADIOLOGY REPORT (SQ) ---
EXAM DESCRIPTION: CHEST SINGLE VIEW COMPLETED DATE/TIME: 07/27/2019 5:24 pm REASON FOR STUDY: sob COMPARISON: AP chest 03/11/2019, 03/10/2019 EXAM PARAMETERS: NUMBER OF VIEWS: One view. TECHNIQUE: Single frontal radiographic view of the chest acquired. RADIATION DOSE: NA LIMITATIONS: None. FINDINGS: LUNGS AND PLEURA: No opacities, masses or pneumothorax. No pleural effusion. MEDIASTINUM AND HILAR STRUCTURES: No masses. Contour normal. HEART AND VASCULAR STRUCTURES: Mild cardiomegaly, stable BONES: No acute findings. HARDWARE: Right-sided permanent central line tip superior vena cava OTHER: No other significant finding. IMPRESSION: No acute findings TECHNICAL DOCUMENTATION: JOB ID: [id number] [employer]- All Rights Reserved Reading location - IP/workstation name: [email or web address]
[2019-07-27] MEDS ORDERED: FUROSEMIDE INJ/PF 20 MG/2 ML SDV IV ONE (17:48)
[2019-07-27 20:27] LABS: A TYPE INFLUENZA AG NEGATIVE (NEGATIVE); B INFLUENZA AG NEGATIVE (NEGATIVE)
[2019-07-27] MEDS ORDERED: IPRATROPIUM/ALBUTEROL 0.5-2.5 MG/3 ML AMPUL NEB PRN (20:53)
[2019-07-27] MEDS ORDERED: MAGNESIUM HYDROXIDE SUSP 30 ML UDCUP PO PRN (20:53)
[2019-07-27] MEDS ORDERED: MAG HYDROX/AL HYDROX/SIMETH SUSP 30 ML UDCUP PO PRN (20:53)
[2019-07-27] MEDS: HEPARIN SOD (PORCINE) 5,000 UNIT/ML 1 ML VIAL SUBCUT SCH (21:47)
--- NOTE | 2019-07-27 22:28 | EKG REPORT ---
SEVERITY:- ABNORMAL ECG - SINUS RHYTHM ATRIAL PREMATURE COMPLEX ABNORMAL T, CONSIDER ISCHEMIA, LATERAL LEADS : Confirmed by: Gloria August 27-Jul-2019 22:27:39
[2019-07-27 23:58] LABS: APPEARANCE,URINE SLIGHTLY-CLOUDY; BILIRUBIN,URINE NEGATIVE (NEGATIVE); COLOR,URINE AMBER; GLUCOSE, URINE NEGATIVE (NEGATIVE); KETONES,URINE NEGATIVE (NEGATIVE); LEUKOCYTE ESTERASE,URINE TRACE (NEGATIVE); NITRITE,URINE NEGATIVE (NEGATIVE); PROTEIN,URINE 100 mg/dL (NEGATIVE); URINE SPECIFIC GRAVITY 1.024
[2019-07-28 00:16] LABS: URINE AMPHETAMINES SCREEN NEGATIVE; URINE BARBITURATES SCREEN NEGATIVE; URINE BENZODIAZEPINES SCREEN UNCONFIRMED POSITIVE; URINE COCAINE SCREEN NEGATIVE; URINE MARIJUANA (THC) SCREEN NEGATIVE; URINE METHADONE SCREEN UNCONFIRMED POSITIVE; URINE PHENCYCLIDINE SCREEN NEGATIVE
[2019-07-28] MEDS ORDERED: GABAPENTIN 300 MG CAPSULE PO ONE (02:00)
[2019-07-28] MEDS: IPRATROPIUM/ALBUTEROL 0.5-2.5 MG/3 ML AMPUL NEB SCH ×4 (03:20→19:48)
--- NOTE | 2019-07-28 05:40 | PDOC H&P ---
History of Present Illness Admission Date/PCP: 07/27/19 21:27 BECKI DIXON MD Patient complains of: Shortness of breath History of Present Illness: WILNER CONSTANTINO is a 63 year old female with a past medical history of COPD, CKD 3, tobacco dependence, diabetes, venous stasis, opiate and benzodiazepine dependence. Hypertension and CVA without residual deficits. She presents with 2 days of worsening shortness of breath and lower extremity edema. Patient does not have congestive heart failure by repeat echocardiogram. In the emergency room she is found to have an elevated BNP and received IV Lasix. She is referred to the hospitalist for admission. Patient states she is chronically tired, awakens from sleep tired and has chronic peripheral edema. She denies evaluation for obstructive sleep apnea. She denies recent change in medications but increased risk of obstructive sleep apnea with benzodiazepines and opiates. At the time of referral her blood pressure precipitously drops without tachycardia or complaint. Concerning for self-administered opiate. Past Medical History Cardiac Medical History: Reports: Coronary Artery Disease, DVT, Hyperlipidema, Hypertension Denies: Myocardial Infarction Pulmonary Medical History: Reports: Asthma, Bronchitis, Chronic Obstructive Pul monary Disease (COPD), Pneumonia Denies: Tuberculosis Neurological Medical History: Denies: Seizures Endocrine Medical History: Reports: Diabetes Mellitus Type 2 Denies: Hypothyroidism Renal/ Medical History: Denies: End Stage Renal Disease Malignancy Medical History: Reports: Ovarian Cancer Musculoskeltal Medical History: Reports: Fibromyalgia Denies: Arthritis Psychiatric Medical History: Denies: Depression Hematology: Denies: Anemia Past Surgical History Past Surgical History: Reports: Cardiac Catheterization, Hysterectomy, Orthopedic Surgery - carpal tunnel, right medial nerve reconstruction, Tubal Ligation Denies: Appendectomy, Section, Cholecystectomy, Coronary Artery Bypass Graft, Gastric Bypass Surgery, Herniorrhaphy, Mastectomy, Pacemaker, Ton sillectomy Social History Lives with: Family Smoking Status: Former Smoker Electronic Cigarette use?: No Frequency of Alcohol Use: None Hx Recreational Drug Use: No Drugs: None Hx Prescription Drug Abuse: No - Advance Directive Resuscitation Status: Full Code Family History Family History: Reviewed & Not Pertinent Parental Family History Reviewed: Yes Children Family History Reviewed: Yes Sibling(s) Family History Reviewed.: Yes Medication/Allergy Home Medications: Albuterol Sulfate [Proair Respiclick] 2 puff IH Q6HP PRN 02/04/17 Gabapentin [Neurontin 300 mg Capsule] 600 mg PO Q12 02/04/17 Methadone HCl [Dolophine HCl] 5 mg PO Q12 02/04/17 Omeprazole 40 mg PO DAILY 02/04/17 Oxycodone HCl 15 mg PO Q6HP PRN MDD 3 tabs 02/04/17 Docusate Sodium [Colace 100 mg Capsule] 100 mg PO BIDP PRN 03/11/19 Fluticasone/Umeclidin/Vilanter [Trelegy 100-62.5-25 Mcg Ellipta 14 Dose/Dpi] 1 inh IH DAILY 03/11/19 Furosemide [Lasix 40 mg Tablet] 40 mg PO BID 03/11/19 Glipizide [Glipizide Xl] 5 mg PO DAILY 03/11/19 Isosorbide Mononitrate [Imdur 60 mg Tablet.er] 60 mg PO DAILY 03/11/19 Metoprolol Succinate [Toprol Xl 25 mg Tab.sr] 12.5 mg PO DAILY 03/11/19 Paricalcitol 1 mcg PO DAILY 03/11/19 Potassium Chloride [Klor-Con M10] 10 meq PO BID 03/11/19 Ranolazine [Ranolazine ER] 500 mg PO Q12 03/11/19 Acetaminophen [Tylenol 325 mg Tablet] 650 mg PO Q4HP PRN tablet 03/15/19 Ciprofloxacin HCl [Cipro 500 mg Tablet] 500 mg PO BID #10 tablet 03/15/19 Docusate Sodium [Colace 100 mg Capsule] 100 mg PO DAILY capsule 03/15/19 Allergies/Adverse Reactions: morphine [Morphine] Allergy (Verified 01/15/19 10:43) Plastic tape Allergy (Uncoded 01/15/19 10:43) Physical Exam Vital Signs: Temp Pulse Resp BP Pulse Ox 98.0 F 69 18 97/55 L 98 07/28/19 03:57 07/28/19 03:57 07/28/19 03:57 07/28/19 03:57 07/28/19 03:57 Intake & Output 07/26/19 07/27/19 07/28/19 11:59 11:59 11:59 Weight 104.326 kg General appearance: PRESENT: no acute distress, obese, well-developed, well- nourished Head exam: PRESENT: atraumatic, normocephalic Eye exam: PRESENT: conjunctiva pink, EOMI, PERRLA. ABSENT: scleral icterus Ear exam: PRESENT: normal external ear exam Mouth exam: PRESENT: moist, tongue midline Neck exam: ABSENT: carotid bruit, JVD, lymphadenopathy, thyromegaly Respiratory exam: PRESENT: crackles, prolonged expiratory phas. ABSENT: rales, rhonchi, wheezes Cardiovascular exam: PRESENT: RRR. ABSENT: diastolic murmur, rubs, systolic murmur Pulses: PRESENT: normal dorsalis pedis pul Vascular exam: PRESENT: normal capillary refill GI/Abdominal exam: PRESENT: normal bowel sounds, soft. ABSENT: distended, guarding, mass, organolmegaly, rebound, tenderness Rectal exam: PRESENT: deferred Extremities exam: PRESENT: full ROM. ABSENT: calf tenderness, clubbing, pedal edema Neurological exam: PRESENT: alert, awake, oriented to person, oriented to place, oriented to time, oriented to situation, CN II-XII grossly intact. ABSENT: motor sensory deficit Psychiatric exam: PRESENT: appropriate affect, normal mood. ABSENT: homicidal ideation, suicidal ideation Skin exam: PRESENT: dry, intact, warm. ABSENT: cyanosis, rash Results Laboratory Results: 07/27/19 16:52 07/27/19 16:52 07/27/19 07/27/19 07/27/19 16:52 16:52 16:52 WBC 5.1 RBC 3.69 L Hgb 12.5 Hct 37.1 MCV 101 H MCH 33.8 H MCHC 33.6 RDW 13.2 Plt Count 168 Seg Neutrophils % 63.1 Sodium 138.5 Potassium 4.4 Chloride 106 Carbon Dioxide 25 Anion Gap 8 BUN 19 Creatinine 1.49 H Est GFR ( Amer) 43 L Glucose 85 Calcium 9.4 Magnesium Total Bilirubin 0.5 AST 22 Alkaline Phosphatase 75 Total Protein 5.6 L Albumin 3.0 L TSH 0.18 L Urine Color Urine Appearance Urine pH Ur Specific [place] Urine Protein Urine Glucose (UA) Urine Ketones Urine Blood Urine Nitrite Ur Leukocyte Esterase Urine WBC (Auto) Urine RBC (Auto) 07/27/19 07/27/19 16:52 23:00 WBC RBC Hgb Hct MCV MCH MCHC RDW Plt Count Seg Neutrophils % Sodium Potassium Chloride Carbon Dioxide Anion Gap BUN Creatinine Est GFR ( Amer) Glucose Calcium Magnesium 2.0 Total Bilirubin AST Alkaline Phosphatase Total Protein Albumin TSH Urine Color PATRICIA Urine Appearance SLIGHTLY-CLOUDY Urine pH 5.0 Ur Specific [place] 1.024 Urine Protein 100 H Urine Glucose (UA) NEGATIVE Urine Ketones NEGATIVE Urine Blood NEGATIVE Urine Nitrite NEGATIVE Ur Leukocyte Esterase TRACE H Urine WBC (Auto) 31 Urine RBC (Auto) 2 07/27/19 07/27/19 16:52 22:59 Troponin I 0.027 0.028 NT-Pro-B Natriuret Pep 3010 H Impressions: Chest X-Ray 07/27/19 16:37 IMPRESSION: No acute findings Assessment and Plan - Diagnosis (1) Obstructive sleep apnea Is this a current diagnosis for this admission?: Yes Plan: Possible explanation for chronic fatigue, shortness of breath without heart srinivas lure by echocardiogram. BiPAP while asleep. Outpatient sleep study, limit sedatives and narcotics exacerbating apnea. (2) COPD (chronic obstructive pulmonary disease) Qualifiers: Is this a current diagnosis for this admission?: Yes Plan: Supplemental oxygen and outpatient regiment (3) Acute bacterial bronchitis Is this a current diagnosis for this admission?: Yes (4) Anxiety Is this a current diagnosis for this admission?: Yes Plan: Evaluate for medical cause, supportive care consider trazodone (5) Venous stasis Is this a current diagnosis for this admission?: Yes Plan: Compression stockings and education (6) Hyperthyroidism Is this a current diagnosis for this admission?: Yes Plan: Follow-up free T4 T3 (7) Opiate dependence Is this a current diagnosis for this admission?: Yes Plan: Limited to avoid withdrawal, concern for apnea inducing shortness of breath - Time Time Spent with patient: 25-34 minutes
[2019-07-28 05:48] LABS: HEMATOCRIT 35.1 % (36.0-47.0); HEMOGLOBIN 11.8 g/dL (12.0-15.5); MEAN CORPUSCULAR HEMOGLOBIN 33.4 pg (27.0-33.4); MEAN CORPUSCULAR HGB CONC 33.8 g/dL (32.0-36.0); MEAN CORPUSCULAR VOLUME 99 fl (80-97); PLATELET COUNT 165 10^3/uL (150-450); RED BLOOD COUNT 3.55 10^6/uL (3.72-5.28); RED CELL DISTRIBUTION WIDTH 12.9 % (11.5-14.0)
[2019-07-28 06:05] LABS: ANION GAP 9 (5-19); BLOOD UREA NITROGEN 19 mg/dL (7-20); CALCIUM 9.4 mg/dL (8.4-10.2); CARBON DIOXIDE 25 mmol/L (22-30); CHLORIDE 105 mmol/L (98-107); GLUCOSE 96 mg/dL (75-110); POTASSIUM 4.2 mmol/L (3.6-5.0)
[2019-07-28] MEDS: HEPARIN SOD (PORCINE) 5,000 UNIT/ML 1 ML VIAL SUBCUT SCH ×3 (06:20→21:27)
[2019-07-28 06:47] LABS: FREE T3 3.08 pg/mL (2.77-5.27)
[2019-07-28] MEDS: DOCUSATE SODIUM 100 MG CAPSULE PO SCH ×2 (09:22→17:42)
[2019-07-28] MEDS: GABAPENTIN 300 MG CAPSULE PO SCH ×3 (09:22→21:50)
[2019-07-28] MEDS: METHYLPREDNISOLONE INJ 40 MG/1 ML SDV IV SCH ×3 (09:22→21:27)
[2019-07-28] MEDS: ACETAMINOPHEN 325 MG TABLET PO PRN (11:46)
[2019-07-28] MEDS ORDERED: KETOROLAC TROMETHAMINE INJ/PF 30 MG/1 ML SDV IV ONE (13:20)
[2019-07-28] MEDS ORDERED: FLUTICASONE NASAL SPRAY 50 MCG/SPRY 120 SPRAY/16 GM NASL PRN (14:00)
[2019-07-28] MEDS ORDERED: NITROGLYCERIN 0.4 MG/TAB 25 TAB/BOTTLE SL PRN (14:30)
--- NOTE | 2019-07-28 14:30 | PDOC PROGRESS REPORT ---
Subjective Progress Note for:: 07/28/19 Subjective:: This is a 63 year old female with a past medical history of COPD, CKD 3, tobacco dependence, diabetes, venous stasis, opiate and benzodiazepine dependence, hypertension and CVA without residual deficits who presented with increasing shortness of breath and pedal edema. He did receive a dose of IV Lasix in the ER as he had elevated BNP. He had a recent echo which showed normal EF and normal diastolic function. Upon encounter this morning, she is says that her shortness of breath has slightly improved. She does report she got relief from the breathing treatment this morning. Upon examination, she has prominent bilateral wheezes and rhonchi. Will start her on IV steroids for COPD exacerbation. Reason For Visit: COPD EXACERBATION Physical Exam Vital Signs: Temp Pulse Resp BP Pulse Ox 98.2 F 93 16 159/62 H 93 07/28/19 11:42 07/28/19 14:05 07/28/19 14:05 07/28/19 11:42 07/28/19 14:05 Intake & Output 07/27/19 07/28/19 07/29/19 06:59 06:59 06:59 Intake Total 720 Output Total 1 0 Balance -1 720 Weight 229 lb 15.074 oz General appearance: PRESENT: no acute distress, well-developed, well-nourished Head exam: PRESENT: atraumatic, normocephalic Eye exam: PRESENT: conjunctiva pink, EOMI, PERRLA. ABSENT: scleral icterus Ear exam: PRESENT: normal external ear exam Mouth exam: PRESENT: moist, tongue midline Neck exam: ABSENT: carotid bruit, JVD, lymphadenopathy, thyromegaly Respiratory exam: PRESENT: rhonchi, wheezes. ABSENT: rales Cardiovascular exam: PRESENT: RRR. ABSENT: diastolic murmur, rubs, systolic m urmur Pulses: PRESENT: normal dorsalis pedis pul GI/Abdominal exam: PRESENT: normal bowel sounds, soft. ABSENT: distended, guarding, mass, organolmegaly, rebound, tenderness Rectal exam: PRESENT: deferred Extremities exam: PRESENT: +1 edema Neurological exam: PRESENT: alert, awake, oriented to person, oriented to place, oriented to time, oriented to situation, CN II-XII grossly intact. ABSENT: motor sensory deficit Results Laboratory Results: 07/28/19 05:31 07/28/19 05:31 07/27/19 07/27/19 07/27/19 16:52 16:52 16:52 WBC 5.1 RBC 3.69 L Hgb 12.5 Hct 37.1 MCV 101 H MCH 33.8 H MCHC 33.6 RDW 13.2 Plt Count 168 Seg Neutrophils % 63.1 Sodium 138.5 Potassium 4.4 Chloride 106 Carbon Dioxide 25 Anion Gap 8 BUN 19 Creatinine 1.49 H Est GFR ( Amer) 43 L Glucose 85 Calcium 9.4 Magnesium Total Bilirubin 0.5 AST 22 Alkaline Phosphatase 75 Total Protein 5.6 L Albumin 3.0 L TSH 0.18 L Free T4 Free T3 pg/mL Urine Color Urine Appearance Urine pH Ur Specific [place] Urine Protein Urine Glucose (UA) Urine Ketones Urine Blood Urine Nitrite Ur Leukocyte Esterase Urine WBC (Auto) Urine RBC (Auto) 07/27/19 07/27/19 07/27/19 16:52 16:52 23:00 WBC RBC Hgb Hct MCV MCH MCHC RDW Plt Count Seg Neutrophils % Sodium Potassium Chloride Carbon Dioxide Anion Gap BUN Creatinine Est GFR ( Amer) Glucose Calcium Magnesium 2.0 Total Bilirubin AST Alkaline Phosphatase Total Protein Albumin TSH Free T4 1.00 Free T3 pg/mL 3.08 Urine Color PATRICIA Urine Appearance SLIGHTLY-CLOUDY Urine pH 5.0 Ur Specific [place] 1.024 Urine Protein 100 H Urine Glucose (UA) NEGATIVE Urine Ketones NEGATIVE Urine Blood NEGATIVE Urine Nitrite NEGATIVE Ur Leukocyte Esterase TRACE H Urine WBC (Auto) 31 Urine RBC (Auto) 2 07/28/19 07/28/19 05:31 05:31 WBC 5.0 RBC 3.55 L Hgb 11.8 L Hct 35.1 L MCV 99 H MCH 33.4 MCHC 33.8 RDW 12.9 Plt Count 165 Seg Neutrophils % Sodium 138.8 Potassium 4.2 Chloride 105 Carbon Dioxide 25 Anion Gap 9 BUN 19 Creatinine 1.61 H Est GFR ( Amer) 39 L Glucose 96 Calcium 9.4 Magnesium Total Bilirubin AST Alkaline Phosphatase Total Protein Albumin TSH Free T4 Free T3 pg/mL Urine Color Urine Appearance Urine pH Ur Specific [place] Urine Protein Urine Glucose (UA) Urine Ketones Urine Blood Urine Nitrite Ur Leukocyte Esterase Urine WBC (Auto) Urine RBC (Auto) 07/27/19 07/27/19 07/28/19 16:52 22:59 05:31 Troponin I 0.027 0.028 0.027 NT-Pro-B Natriuret Pep 3010 H Impressions: Chest X-Ray 07/27/19 16:37 IMPRESSION: No acute findings Assessment and Plan - Diagnosis (1) COPD exacerbation Is this a current diagnosis for this admission?: Yes Plan: Start IV steroids and scheduled breathing treatments. (2) CKD stage 3 due to type 2 diabetes mellitus Is this a current diagnosis for this admission?: Yes Plan: Avoid nephrotoxic agents. (3) Opiate dependence Is this a current diagnosis for this admission?: Yes - Time Time Spent with patient: 25-34 minutes
[2019-07-28] MEDS: CHOLECALCIFEROL (D3) 1,000 UNIT (25 MCG) TABLET PO SCH (17:42)
[2019-07-28] MEDS: RANOLAZINE 500 MG TAB.SR.12H PO SCH (17:42)
[2019-07-28] MEDS: OMEGA-3 ACID ETHYL ESTERS 1 GM CAPSULE PO SCH (17:42)
[2019-07-28] MEDS ORDERED: (PENDING PHARMACY ID) (Omega-3 Fatty Acids/Fish Oil [Fish Oil 1,000 Mg Capsule] 1 CAP) PO SCH (18:00)
[2019-07-28] MEDS: OXYCODONE HCL IR 5 MG TABLET PO PRN (21:29)
[2019-07-28] MEDS ORDERED: (PENDING PHARMACY ID) (Zolpidem Tartrate [Ambien] 10 MG) PO SCH (22:00)
[2019-07-28] MEDS: ZOLPIDEM TARTRATE 5 MG TABLET PO SCH (23:56)
[2019-07-29] MEDS: IPRATROPIUM/ALBUTEROL 0.5-2.5 MG/3 ML AMPUL NEB SCH ×4 (02:18→19:48)
[2019-07-29] MEDS: HEPARIN SOD (PORCINE) 5,000 UNIT/ML 1 ML VIAL SUBCUT SCH ×3 (06:02→22:49)
[2019-07-29] MEDS: OXYCODONE HCL IR 5 MG TABLET PO PRN ×3 (06:07→22:48)
[2019-07-29] MEDS: METHYLPREDNISOLONE INJ 40 MG/1 ML SDV IV SCH ×3 (06:07→22:50)
[2019-07-29 08:40] LABS: ABSOLUTE LYMPHOCYTES (AUTO) 0.8 10^3/uL (0.5-4.7); ABSOLUTE MONOCYTES (AUTO) 0.3 10^3/uL (0.1-1.4); ABSOLUTE NEUT (AUTO) 3.7 10^3/uL (1.7-8.2); BASOPHILS % (AUTO) 0.2 % (0-2); HEMATOCRIT 37.5 % (36.0-47.0); HEMOGLOBIN 12.7 g/dL (12.0-15.5); LYMPHOCYTES % (AUTO) 16.8 % (13-45); MEAN CORPUSCULAR HEMOGLOBIN 33.7 pg (27.0-33.4); MEAN CORPUSCULAR HGB CONC 33.9 g/dL (32.0-36.0); MEAN CORPUSCULAR VOLUME 100 fl (80-97); MONOCYTES % (AUTO) 6.7 % (3-13); PLATELET COUNT 173 10^3/uL (150-450); RED BLOOD COUNT 3.76 10^6/uL (3.72-5.28); RED CELL DISTRIBUTION WIDTH 12.5 % (11.5-14.0); SEGMENTED NEUTROPHILS % (AUTO) 76.3 % (42-78); TOTAL CELLS COUNTED % (AUTO) 100 %; WHITE BLOOD COUNT 4.8 10^3/uL (4.0-10.5)
[2019-07-29 09:03] LABS: ANION GAP 10 (5-19); BLOOD UREA NITROGEN 22 mg/dL (7-20); CALCIUM 10.3 mg/dL (8.4-10.2); CARBON DIOXIDE 28 mmol/L (22-30); CHLORIDE 104 mmol/L (98-107); GLUCOSE 183 mg/dL (75-110); POTASSIUM 4.9 mmol/L (3.6-5.0)
[2019-07-29] MEDS: ISOSORBIDE MONONITRATE 30 MG TAB.ER.24H PO SCH (09:59)
[2019-07-29] MEDS: GABAPENTIN 300 MG CAPSULE PO SCH ×4 (09:59→22:55)
[2019-07-29] MEDS: PANTOPRAZOLE SODIUM 40 MG TABLET.DR PO SCH (09:59)
[2019-07-29] MEDS: ASPIRIN 81 MG TABLET, ENT COATED PO SCH (09:59)
[2019-07-29] MEDS: RANOLAZINE 500 MG TAB.SR.12H PO SCH ×2 (09:59→17:24)
[2019-07-29] MEDS: OMEGA-3 ACID ETHYL ESTERS 1 GM CAPSULE PO SCH ×2 (09:59→17:24)
[2019-07-29] MEDS: DOCUSATE SODIUM 100 MG CAPSULE PO SCH ×2 (09:59→17:24)
[2019-07-29] MEDS ORDERED: PARICALCITOL 1 MCG PO SCH (10:00)
[2019-07-29] MEDS: ACETAMINOPHEN 325 MG TABLET PO PRN ×2 (16:11→19:50)
--- NOTE | 2019-07-29 16:25 | PDOC PROGRESS REPORT ---
Subjective Progress Note for:: 07/29/19 Subjective:: This is a 63 year old female with a past medical history of COPD, CKD 3, tobacco dependence, diabetes, venous stasis, opiate and benzodiazepine dependence, hypertension and CVA without residual deficits who presented with increasing shortness of breath and pedal edema. He did receive a dose of IV Lasix in the ER as he had elevated BNP. He had a recent echo which showed normal EF and normal diastolic function. 07/28: Upon encounter this morning, she is says that her shortness of breath has slightly improved. She does report she got relief from the breathing treatment this morning. Upon examination, she has prominent bilateral wheezes and rhonchi. Will start her on IV steroids for COPD exacerbation. 07/29: No acute event overnight. She says her shortness of breath continue to improve but she does not feel like she is at her baseline yet. She still has bilateral wheezing on examination slightly improved from yesterday. She desaturated down to the 80s early this morning and was put back on 2 L of nasal cannula. She is not on home O2. Reason For Visit: COPD EXACERBATION Physical Exam Vital Signs: Temp Pulse Resp BP Pulse Ox 97.9 F 97 20 110/65 96 07/29/19 15:20 07/29/19 15:20 07/29/19 15:20 07/29/19 15:20 07/29/19 15:20 Intake & Output 07/28/19 07/29/19 07/30/19 06:59 06:59 06:59 Intake Total 5 950 Output Total 1 0 Balance -1 2054 950 Weight 229 lb 15.074 oz 225 lb 15.581 oz General appearance: PRESENT: no acute distress, well-developed, well-nourished Head exam: PRESENT: atraumatic, normocephalic Eye exam: PRESENT: conjunctiva pink, EOMI, PERRLA. ABSENT: scleral icterus Ear exam: PRESENT: normal external ear exam Mouth exam: PRESENT: moist, tongue midline Neck exam: ABSENT: carotid bruit, JVD, lymphadenopathy, thyromegaly Respiratory exam: PRESENT: rhonchi, wheezes. ABSENT: rales Cardiovascular exam: PRESENT: RRR. ABSENT: diastolic murmur, rubs, systolic murmur Pulses: PRESENT: normal dorsalis pedis pul GI/Abdominal exam: PRESENT: normal bowel sounds, soft. ABSENT: distended, guarding, mass, organolmegaly, rebound, tenderness Rectal exam: PRESENT: deferred Extremities exam: PRESENT: full ROM. ABSENT: calf tenderness, clubbing, pedal edema Neurological exam: PRESENT: alert, awake, oriented to person, oriented to place, oriented to time, oriented to situation, CN II-XII grossly intact. ABSENT: motor sensory deficit Results Laboratory Results: 07/29/19 08:10 07/29/19 08:10 07/29/19 07/29/19 08:10 08:10 WBC 4.8 RBC 3.76 Hgb 12.7 Hct 37.5 MCV 100 H MCH 33.7 H MCHC 33.9 RDW 12.5 Plt Count 173 Seg Neutrophils % 76.3 Sodium 141.7 Potassium 4.9 Chloride 104 Carbon Dioxide 28 Anion Gap 10 BUN 22 H Creatinine 1.70 H Est GFR ( Amer) 37 L Glucose 183 H Calcium 10.3 H 07/27/19 07/27/19 07/28/19 16:52 22:59 05:31 Troponin I 0.027 0.028 0.027 NT-Pro-B Natriuret Pep 3010 H 07/28/19 13:00 Troponin I 0.014 NT-Pro-B Natriuret Pep Impressions: Chest X-Ray 07/27/19 16:37 IMPRESSION: No acute findings Assessment and Plan - Diagnosis (1) Acute respiratory failure with hypoxia Is this a current diagnosis for this admission?: Yes Plan: Secondary to COPD exacerbation. (2) COPD exacerbation Is this a current diagnosis for this admission?: Yes Plan: Continue IV steroids and scheduled breathing treatments. (3) CKD stage 3 due to type 2 diabetes mellitus Is this a current diagnosis for this admission?: Yes Plan: Avoid nephrotoxic agents. (4) Opiate dependence Is this a current diagnosis for this admission?: Yes - Time Time Spent with patient: 25-34 minutes
[2019-07-29] MEDS: CHOLECALCIFEROL (D3) 1,000 UNIT (25 MCG) TABLET PO SCH (17:24)
[2019-07-29] MEDS: ZOLPIDEM TARTRATE 5 MG TABLET PO SCH (22:49)
[2019-07-30] MEDS: IPRATROPIUM/ALBUTEROL 0.5-2.5 MG/3 ML AMPUL NEB SCH ×4 (01:40→20:51)
[2019-07-30] MEDS: METHYLPREDNISOLONE INJ 40 MG/1 ML SDV IV SCH ×3 (06:36→21:26)
[2019-07-30] MEDS: HEPARIN SOD (PORCINE) 5,000 UNIT/ML 1 ML VIAL SUBCUT SCH ×3 (06:37→21:26)
[2019-07-30] MEDS: ASPIRIN 81 MG TABLET, ENT COATED PO SCH (07:31)
[2019-07-30] MEDS: PANTOPRAZOLE SODIUM 40 MG TABLET.DR PO SCH (07:31)
[2019-07-30] MEDS: ISOSORBIDE MONONITRATE 30 MG TAB.ER.24H PO SCH (07:32)
[2019-07-30] MEDS: RANOLAZINE 500 MG TAB.SR.12H PO SCH ×2 (10:37→17:35)
[2019-07-30] MEDS: OMEGA-3 ACID ETHYL ESTERS 1 GM CAPSULE PO SCH ×2 (10:37→17:35)
[2019-07-30] MEDS: GABAPENTIN 300 MG CAPSULE PO SCH ×3 (10:37→21:25)
[2019-07-30] MEDS: DOCUSATE SODIUM 100 MG CAPSULE PO SCH ×2 (10:38→17:35)
[2019-07-30] MEDS: ACETAMINOPHEN 325 MG TABLET PO PRN (11:57)
[2019-07-30] MEDS: OXYCODONE HCL IR 5 MG TABLET PO PRN ×2 (12:01→21:25)
--- NOTE | 2019-07-30 13:55 | PDOC PROGRESS REPORT ---
Subjective Progress Note for:: 07/30/19 Subjective:: This is a 63 year old female with a past medical history of COPD, CKD 3, tobacco dependence, diabetes, venous stasis, opiate and benzodiazepine dependence, hypertension and CVA without residual deficits who presented with increasing shortness of breath and pedal edema. He did receive a dose of IV Lasix in the ER as he had elevated BNP. He had a recent echo which showed normal EF and normal diastolic function. 07/28: Upon encounter this morning, she is says that her shortness of breath has slightly improved. She does report she got relief from the breathing treatment this morning. Upon examination, she has prominent bilateral wheezes and rhonchi. Will start her on IV steroids for COPD exacerbation. 07/29: She says her shortness of breath continue to improve but she does not feel like she is at her baseline yet. She still has bilateral wheezing on ex amination slightly improved from yesterday. She desaturated down to the 80s early this morning and was put back on 2 L of nasal cannula. She is not on home O2. 07/30: No acute event overnight. This morning, she says that her shortness of breath continue to improve. She denies chest pain. Upon ambulation, she got winded and got short of breath. Her saturation stayed at more than 92%. She sa ys she continues to feel better but is not at her baseline yet. Reason For Visit: COPD EXACERBATION Physical Exam Vital Signs: Temp Pulse Resp BP Pulse Ox 97.9 F 100 22 H 157/93 H 97 07/30/19 12:21 07/30/19 12:21 07/30/19 12:21 07/30/19 12:21 07/30/19 12:21 Intake & Output 07/29/19 07/30/19 07/31/19 06:59 06:59 06:59 Intake Total 2054 1849 850 Output Total 0 Balance 2054 1849 850 Weight 225 lb 15.581 oz 227 lb 15.327 oz General appearance: PRESENT: no acute distress, well-developed, well-nourished Head exam: PRESENT: atraumatic, normocephalic Eye exam: PRESENT: conjunctiva pink, EOMI, PERRLA. ABSENT: scleral icterus Ear exam: PRESENT: normal external ear exam Mouth exam: PRESENT: moist, tongue midline Neck exam: ABSENT: carotid bruit, JVD, lymphadenopathy, thyromegaly Respiratory exam: PRESENT: rhonchi, wheezes. ABSENT: rales Cardiovascular exam: PRESENT: RRR. ABSENT: diastolic murmur, rubs, systolic murmur Pulses: PRESENT: normal dorsalis pedis pul GI/Abdominal exam: PRESENT: normal bowel sounds, soft. ABSENT: distended, guarding, mass, organolmegaly, rebound, tenderness Rectal exam: PRESENT: deferred Extremities exam: PRESENT: full ROM. ABSENT: calf tenderness, clubbing, pedal edema Neurological exam: PRESENT: alert, awake, oriented to person, oriented to place, oriented to time, oriented to situation, CN II-XII grossly intact. ABSENT: motor sensory deficit Results Laboratory Results: 07/29/19 08:10 07/29/19 08:10 07/27/19 07/27/19 07/28/19 16:52 22:59 05:31 Troponin I 0.027 0.028 0.027 NT-Pro-B Natriuret Pep 3010 H 07/28/19 13:00 Troponin I 0.014 NT-Pro-B Natriuret Pep Impressions: Chest X-Ray 07/27/19 16:37 IMPRESSION: No acute findings Assessment and Plan - Diagnosis (1) Acute respiratory failure with hypoxia Is this a current diagnosis for this admission?: Yes Plan: Secondary to COPD exacerbation. (2) COPD exacerbation Is this a current diagnosis for this admission?: Yes Plan: Continue IV steroids and scheduled breathing treatments. (3) CKD stage 3 due to type 2 diabetes mellitus Is this a current diagnosis for this admission?: Yes Plan: Avoid nephrotoxic agents. (4) Opiate dependence Is this a current diagnosis for this admission?: Yes - Time Time Spent with patient: 25-34 minutes
[2019-07-30] MEDS: CHOLECALCIFEROL (D3) 1,000 UNIT (25 MCG) TABLET PO SCH (17:35)
[2019-07-30] MEDS: ZOLPIDEM TARTRATE 5 MG TABLET PO SCH (21:25)
[2019-07-31] MEDS: IPRATROPIUM/ALBUTEROL 0.5-2.5 MG/3 ML AMPUL NEB SCH ×3 (02:22→14:47)
[2019-07-31] MEDS: OXYCODONE HCL IR 5 MG TABLET PO PRN (05:38)
[2019-07-31] MEDS: HEPARIN SOD (PORCINE) 5,000 UNIT/ML 1 ML VIAL SUBCUT SCH (05:38)
[2019-07-31] MEDS: METHYLPREDNISOLONE INJ 40 MG/1 ML SDV IV SCH (05:38)
[2019-07-31 08:11] VITALS: BP 131/81
[2019-07-31] MEDS: ISOSORBIDE MONONITRATE 30 MG TAB.ER.24H PO SCH (08:40)
[2019-07-31] MEDS: ASPIRIN 81 MG TABLET, ENT COATED PO SCH (08:41)
[2019-07-31] MEDS: PANTOPRAZOLE SODIUM 40 MG TABLET.DR PO SCH (08:41)
[2019-07-31] MEDS: GABAPENTIN 300 MG CAPSULE PO SCH ×3 (10:07→10:15)
[2019-07-31] MEDS: RANOLAZINE 500 MG TAB.SR.12H PO SCH (10:08)
[2019-07-31] MEDS: DOCUSATE SODIUM 100 MG CAPSULE PO SCH (10:08)
[2019-07-31] MEDS: OMEGA-3 ACID ETHYL ESTERS 1 GM CAPSULE PO SCH (10:08)
[2019-07-31] MEDS: ACETAMINOPHEN 325 MG TABLET PO PRN (14:01)
--- NOTE | 2019-08-01 14:33 | PDOC DISCHARGE SUMMARY ---
Impression - Admit/DC Date/PCP Admission Date/Primary Care Provider: 07/28/19 12:25 BECKI DIXON MD Discharge Date: 07/31/19 - Discharge Diagnosis (1) Acute respiratory failure with hypoxia Is this a current diagnosis for this admission?: Yes (2) COPD exacerbation Is this a current diagnosis for this admission?: Yes (3) CKD stage 3 due to type 2 diabetes mellitus Is this a current diagnosis for this admission?: Yes (4) Opiate dependence Is this a current diagnosis for this admission?: Yes - Additional Information Resuscitation Status: Full Code Discharge Diet: As Tolerated, Regular Discharge Activity: Activity As Tolerated, Balance Activity w/Rest Referrals: KEELEY BOURGEOIS MD [ACTIVE STAFF] - (Needs a formal PFT.) BECKI DIXON MD [Primary Care Provider] - 08/05/19 10:00 am Prescriptions: Prednisone [Deltasone 20 mg Tablet] 20 mg PO BID 5 Days #10 tablet Home Medications: Albuterol Sulfate [Proair HFA Inhalation Aerosol 8.5 gm MDI] 2 puff IH Q6HP PRN 07/28/19 Aspirin [Adult Low Dose Aspirin EC] 81 mg PO QAM 07/28/19 Cholecalciferol (Vitamin D3) [Vitamin D3 1000 Unit Tablet] 1,000 unit PO QPM 07/28/19 Fluticasone/Umeclidin/Vilanter [Trelegy 100-62.5-25 Mcg Ellipta 14 Dose/Dpi] 1 puff IH QAM 07/28/19 Furosemide [Lasix 40 mg Tablet] 80 mg PO QAM 07/28/19 Gabapentin [Neurontin 300 mg Capsule] 600 mg PO Q12 07/28/19 Glipizide [Glucotrol 5 mg Tablet] 5 mg PO QAM 07/28/19 Isosorbide Mononitrate [Imdur 30 mg Tablet.er] 60 mg PO QAM 07/28/19 Methadone HCl [Dolophine HCl] 5 mg PO Q12 07/28/19 Metoprolol Succinate [Toprol Xl 25 mg Tab.sr] 12.5 mg PO QHS 07/28/19 Nitroglycerin [Nitrostat 0.4 mg (1/150 Gr) Tabs 25/Bottle] 0.4 mg SL Q5MP PRN 07/28/19 [place]-3 Fatty Acids/Fish Oil [Fish Oil 1,000 mg Capsule] 1 cap PO BID 07/28/19 Omeprazole 40 mg PO QAM 07/28/19 Oxycodone HCl 15 mg PO Q8HP PRN 07/28/19 Paricalcitol 1 mcg PO DAILY 07/28/19 Ranolazine [Ranexa 500 mg Tab.sr] 500 mg PO BID 07/28/19 Zolpidem Tartrate [Ambien] 10 mg PO QHS 07/28/19 Prednisone [Deltasone 20 mg Tablet] 20 mg PO BID 5 Days #10 tablet 07/30/19 History of Present Illiness History of Present Illness: Admitting hospitalist's H&P: WILNER CONSTANTINO is a 63 year old female with a past medical history of COPD, CKD 3, tobacco dependence, diabetes, venous stasis, opiate and benzodiazepine dependence. Hypertension and CVA without residual deficits. She presents with 2 days of worsening shortness of breath and lower extremity edema. Patient does not have congestive heart failure by repeat echocardiogram. In the emergency room she is found to have an elevated BNP and received IV Lasix. She is referred to the hospitalist for admission. Patient states she is chronically tired, awakens from sleep tired and has chronic peripheral edema. She denies evaluation for obstructive sleep apnea. She denies recent change in medications but increased risk of obstructive sleep apnea with benzodiazepines and opiates. Hospital Course Hospital Course: This is a 63 year old female with a past medical history of COPD, CKD 3, tobacco dependence, diabetes, venous stasis, opiate and benzodiazepine dependence, hypertension and CVA without residual deficits who presented with increasing shortness of breath and pedal edema. He did receive a dose of IV Lasix in the ER as he had elevated BNP. He had a recent echo which showed normal EF and normal diastolic function. 07/28: Upon encounter this morning, she is says that her shortness of breath has slightly improved. She does report she got relief from the breathing treatment this morning. Upon examination, she has prominent bilateral wheezes and rhonchi. Will start her on IV steroids for COPD exacerbation. She was also started on Rocephin. 07/29: She says her shortness of breath continue to improve but she does not feel like she is at her baseline yet. She still has bilateral wheezing on examination slightly improved from yesterday. She desaturated down to the 80s early this morning and was put back on 2 L of nasal cannula. She is not on home O2. 07/30: No acute event overnight. This morning, she says that her shortness of breath continue to improve. She denies chest pain. Upon ambulation, she got winded and got short of breath. Her saturation stayed at more than 92%. She says she continues to feel better but is not at her baseline yet. 07/31: Patient returned to her baseline. She does have limited ability to walk far as her baseline from her COPD. She was weaned off O2 and was able to ambulate the hallways on room air without any desaturation or acute shortness of breath. She will be discharged on prednisone. She will continue her Trelegy. She was given a follow-up appointment with pulmonology. She had pyuria on UA but denied any urinary frequency, dysuria, urgency or hematuria. Physical Exam Vital Signs: Temp Pulse Resp BP Pulse Ox 98.0 F 83 18 131/81 H 99 07/31/19 12:36 07/31/19 12:36 07/31/19 12:36 07/31/19 12:36 07/31/19 12:36 Intake & Output 07/31/19 08/01/19 08/02/19 06:59 06:59 06:59 Intake Total 2160 820 Balance 2160 820 Weight 230 lb 9.656 oz General appearance: PRESENT: no acute distress, well-developed, well-nourished Head exam: PRESENT: atraumatic, normocephalic Eye exam: PRESENT: conjunctiva pink, EOMI, PERRLA. ABSENT: scleral icterus Ear exam: PRESENT: normal external ear exam Mouth exam: PRESENT: moist, tongue midline Neck exam: ABSENT: carotid bruit, JVD, lymphadenopathy, thyromegaly Respiratory exam: PRESENT: rhonchi. ABSENT: rales, wheezes Cardiovascular exam: PRESENT: RRR. ABSENT: diastolic murmur, rubs, systolic murmur Pulses: PRESENT: normal dorsalis pedis pul GI/Abdominal exam: PRESENT: normal bowel sounds, soft. ABSENT: distended, guarding, mass, organolmegaly, rebound, tenderness Rectal exam: PRESENT: deferred Extremities exam: PRESENT: full ROM. ABSENT: calf tenderness, clubbing, pedal edema Neurological exam: PRESENT: alert, awake, oriented to person, oriented to place, oriented to time, oriented to situation, CN II-XII grossly intact. ABSENT: motor sensory deficit Results Laboratory Results: WBC 4.8 10^3/uL (4.0-10.5) 07/29/19 08:10 RBC 3.76 10^6/uL (3.72-5.28) 07/29/19 08:10 Hgb 12.7 g/dL (12.0-15.5) 07/29/19 08:10 Hct 37.5 % (36.0-47.0) 07/29/19 08:10 MCV 100 fl (80-97) H 07/29/19 08:10 MCH 33.7 pg (27.0-33.4) H 07/29/19 08:10 MCHC 33.9 g/dL (32.0-36.0) 07/29/19 08:10 RDW 12.5 % (11.5-14.0) 07/29/19 08:10 Plt Count 173 10^3/uL (150-450) 07/29/19 08:10 Lymph % (Auto) 16.8 % (13-45) 07/29/19 08:10 Grant % (Auto) 6.7 % (3-13) 07/29/19 08:10 Eos % (Auto) 0.0 % (0-6) 07/29/19 08:10 Baso % (Auto) 0.2 % (0-2) 07/29/19 08:10 Absolute Neuts (auto) 3.7 10^3/uL (1.7-8.2) 07/29/19 08:10 Absolute Lymphs (auto) 0.8 10^3/uL (0.5-4.7) 07/29/19 08:10 Absolute Monos (auto) 0.3 10^3/uL (0.1-1.4) 07/29/19 08:10 Absolute Eos (auto) 0.0 10^3/uL (0.0-0.6) 07/29/19 08:10 Absolute Basos (auto) 0.0 10^3/uL (0.0-0.2) 07/29/19 08:10 Seg Neutrophils % 76.3 % (42-78) 07/29/19 08:10 Sodium 141.7 mmol/L (137-145) 07/29/19 08:10 Potassium 4.9 mmol/L (3.6-5.0) 07/29/19 08:10 Chloride 104 mmol/L (98-107) 07/29/19 08:10 Carbon Dioxide 28 mmol/L (22-30) 07/29/19 08:10 Anion Gap 10 (5-19) 07/29/19 08:10 BUN 22 mg/dL (7-20) H 07/29/19 08:10 Creatinine 1.70 mg/dL (0.52-1.25) H 07/29/19 08:10 Est GFR ( Amer) 37 (>60) L 07/29/19 08:10 Est GFR (MDRD) Non-Af 30 (>60) L 07/29/19 08:10 Glucose 183 mg/dL (75-110) H 07/29/19 08:10 Hemoglobin A1c % 5.6 % (4.7-6.0) 07/28/19 05:31 Calcium 10.3 mg/dL (8.4-10.2) H 07/29/19 08:10 Magnesium 2.0 mg/dL (1.6-2.3) 07/27/19 16:52 Total Bilirubin 0.5 mg/dL (0.2-1.3) 07/27/19 16:52 Direct Bilirubin 0.2 mg/dL (0.0-0.4) 07/27/19 16:52 Neonat Total Bilirubin Not Reportable 07/27/19 16:52 Neonat Direct Bilirubin Not Reportable 07/27/19 16:52 Neonat Indirect Bili Not Reportable 07/27/19 16:52 AST 22 U/L (14-36) 07/27/19 16:52 ALT 11 U/L (<35) 07/27/19 16:52 Alkaline Phosphatase 75 U/L (38-126) 07/27/19 16:52 Troponin I 0.014 ng/mL 07/28/19 13:00 NT-Pro-B Natriuret Pep 3010 pg/mL (<125) H 07/27/19 16:52 Total Protein 5.6 g/dL (6.3-8.2) L 07/27/19 16:52 Albumin 3.0 g/dL (3.5-5.0) L 07/27/19 16:52 TSH 0.18 uIU/mL (0.47-4.68) L 07/27/19 16:52 Free T4 1.00 ng/dL (0.78-2.19) 07/27/19 16:52 Free T3 pg/mL 3.08 pg/mL (2.77-5.27) 07/27/19 16:52 Urine Color PATRICIA 07/27/19 23:00 Urine Appearance SLIGHTLY-CLOUDY 07/27/19 23:00 Urine pH 5.0 (5.0-9.0) 07/27/19 23:00 Ur Specific [place] 1.024 07/27/19 23:00 Urine Protein 100 mg/dL (NEGATIVE) H 07/27/19 23:00 Urine Glucose (UA) NEGATIVE mg/dL (NEGATIVE) 07/27/19 23:00 Urine Ketones NEGATIVE mg/dL (NEGATIVE) 07/27/19 23:00 Urine Blood NEGATIVE (NEGATIVE) 07/27/19 23:00 Urine Nitrite NEGATIVE (NEGATIVE) 07/27/19 23:00 Urine Bilirubin NEGATIVE (NEGATIVE) 07/27/19 23:00 Urine Urobilinogen 2.0 mg/dL (<2.0) H 07/27/19 23:00 Ur Leukocyte Esterase TRACE (NEGATIVE) H 07/27/19 23:00 Urine WBC (Auto) 31 /HPF 07/27/19 23:00 Urine RBC (Auto) 2 /HPF 07/27/19 23:00 Urine Bacteria (Auto) 2+ /HPF 07/27/19 23:00 Squamous Epi Cells Auto 2 /HPF 07/27/19 23:00 Urine Mucus (Auto) OCC /LPF 07/27/19 23:00 Urine Ascorbic Acid NEGATIVE (NEGATIVE) 07/27/19 23:00 Urine Opiates Screen UNCONFIRMED POSITIVE 07/27/19 23:00 Urine Methadone Screen UNCONFIRMED POSITIVE 07/27/19 23:00 Ur Barbiturates Screen NEGATIVE 07/27/19 23:00 Ur Phencyclidine Scrn NEGATIVE 07/27/19 23:00 Ur Amphetamines Screen NEGATIVE 07/27/19 23:00 U Benzodiazepines Scrn UNCONFIRMED POSITIVE 07/27/19 23:00 Urine Cocaine Screen NEGATIVE 07/27/19 23:00 U Marijuana (THC) Screen NEGATIVE 07/27/19 23:00 Influenza A (Rapid) NEGATIVE (NEGATIVE) 07/27/19 19:39 Influenza B (Rapid) NEGATIVE (NEGATIVE) 07/27/19 19:39 07/27/19 07/27/19 07/28/19 16:52 22:59 05:31 Troponin I 0.027 0.028 0.027 NT-Pro-B Natriuret Pep 3010 H 07/28/19 13:00 Troponin I 0.014 NT-Pro-B Natriuret Pep Impressions: Chest X-Ray 07/27/19 16:37 IMPRESSION: No acute findings Stroke Is this a Stroke Patient?: No Acute Heart Failure - Is this a Heart Failure Patient?: No
== END 2019-07-31 14:30 | disposition home or self-care (01) | DRG 190 ==
LOC: ER 16:31 → INTOOBSV 21:27 → EH 21:27 → 3W 07-28 03:42 → OBSVTOIN 07-28 12:25 → 4S 07-31 05:11
PROVIDERS: ADMIT Internal Medicine; ATTEND Internal Medicine
PROC: 5A09357 Assistance with Respiratory Ventilation, Less than 24 Consecutive Hours, Continuous Positive Airway Pressure (ICD-10-PCS; principal; 2019-07-28)
DX: J44.1 Chronic obstructive pulmonary disease with (acute) exacerbation (principal); J96.01 Acute respiratory failure with hypoxia; F11.20 Opioid dependence, uncomplicated; E11.22 Type 2 diabetes mellitus with diabetic chronic kidney disease; N18.3 Chronic kidney disease, stage 3 (moderate); I12.9 Hypertensive chronic kidney disease with stage 1 through stage 4 chronic kidney disease, or unspecified chronic kidney disease; I87.8 Other specified disorders of veins; R60.9 Edema, unspecified; I25.10 Atherosclerotic heart disease of native coronary artery without angina pectoris; E78.5 Hyperlipidemia, unspecified; M79.7 Fibromyalgia; E66.9 Obesity, unspecified; G47.33 Obstructive sleep apnea (adult) (pediatric); J20.9 Acute bronchitis, unspecified; F41.9 Anxiety disorder, unspecified; E05.90 Thyrotoxicosis, unspecified without thyrotoxic crisis or storm; Z79.84 Long term (current) use of oral hypoglycemic drugs; Z79.82 Long term (current) use of aspirin; Z79.51 Long term (current) use of inhaled steroids; Z86.73 Personal history of transient ischemic attack (TIA), and cerebral infarction without residual deficits; Z86.718 Personal history of other venous thrombosis and embolism; Z85.43 Personal history of malignant neoplasm of ovary; Z87.891 Personal history of nicotine dependence; Z88.6 Allergy status to analgesic agent; Z91.048 Other nonmedicinal substance allergy status; Z68.36 Body mass index [BMI] 36.0-36.9, adult
CPT/HCPCS: 36415; 71045; 80048; 80053; 80307; 81001; 83036; 83735; 83880; 84439; 84443; 84481; 84484; 85025; 85027; 87804; 93005; 93010; 94640; 94660; 96374; 99285; G0378; J1642; J1644; J1885; J1940; J2920; J3490; J7620

== ENCOUNTER → 2020-01-24 | Outpatient (CLI) | payer MEDICARE, MEDICAID ==
--- NOTE | 2020-01-24 11:57 | EKG REPORT ---
SEVERITY:- ABNORMAL ECG - SINUS RHYTHM ABNORMAL T, CONSIDER ISCHEMIA, LATERAL LEADS PROLONGED QT INTERVAL : Confirmed by: Enrico Warner MD 24-Jan-2020 11:56:07
== END ==
LOC: OD 10:57
PROVIDERS: ATTEND Physician Assistant
DX: R94.31 Abnormal electrocardiogram [ECG] [EKG] (principal); Z51.81 Encounter for therapeutic drug level monitoring; Z79.891 Long term (current) use of opiate analgesic
CPT/HCPCS: 93005; 93010

== ENCOUNTER → 2020-02-18 | Outpatient (CLI) | payer MEDICARE, MEDICAID ==
[2020-02-18 14:06] LABS: ABSOLUTE EOSINOPHILS # (AUTO) 0.1 10^3/uL (0.0-0.6); ABSOLUTE LYMPHOCYTES (AUTO) 2.2 10^3/uL (0.5-4.7); ABSOLUTE MONOCYTES (AUTO) 0.4 10^3/uL (0.1-1.4); BASOPHILS % (AUTO) 0.5 % (0-2); EOSINOPHILS % (AUTO) 1.7 % (0-6); HEMATOCRIT 39.3 % (36.0-47.0); LYMPHOCYTES % (AUTO) 38.4 % (13-45); MEAN CORPUSCULAR HEMOGLOBIN 31.7 pg (27.0-33.4); MEAN CORPUSCULAR HGB CONC 33.2 g/dL (32.0-36.0); MEAN CORPUSCULAR VOLUME 96 fl (80-97); MONOCYTES % (AUTO) 6.5 % (3-13); PLATELET COUNT 190 10^3/uL (150-450); RED BLOOD COUNT 4.11 10^6/uL (3.72-5.28); RED CELL DISTRIBUTION WIDTH 14.6 % (11.5-14.0); SEGMENTED NEUTROPHILS % (AUTO) 52.9 % (42-78); TOTAL CELLS COUNTED % (AUTO) 100 %; WHITE BLOOD COUNT 5.7 10^3/uL (4.0-10.5)
[2020-02-18 14:20] LABS: APPEARANCE,URINE CLEAR; BILIRUBIN,URINE NEGATIVE (NEGATIVE); COLOR,URINE YELLOW; GLUCOSE, URINE NEGATIVE (NEGATIVE); KETONES,URINE NEGATIVE (NEGATIVE); LEUKOCYTE ESTERASE,URINE NEGATIVE (NEGATIVE); NITRITE,URINE NEGATIVE (NEGATIVE); PROTEIN,URINE 30 mg/dL (NEGATIVE); URINE SPECIFIC GRAVITY 1.021; UROBILINOGEN,URINE NEGATIVE mg/dL (<2.0)
[2020-02-18 14:23] LABS: ALBUMIN 3.5 g/dL (3.5-5.0); BLOOD UREA NITROGEN 31 mg/dL (7-20); CALCIUM 9.8 mg/dL (8.4-10.2); CARBON DIOXIDE 25 mmol/L (22-30); CHLORIDE 108 mmol/L (98-107); GLUCOSE 113 mg/dL (75-110); PHOSPHORUS 3.5 mg/dL (2.5-4.5); POTASSIUM 4.9 mmol/L (3.6-5.0)
[2020-02-18 14:32] LABS: ANION GAP 4 (5-19)
[2020-02-19 13:37] LABS: CREATININE URINE 147.4 mg/dL (Not Estab.); MICROALBUMIN URINE 74.2 ug/mL (Not Estab.)
== END ==
LOC: OD 13:23
PROVIDERS: ATTEND Internal Medicine Nephrology
DX: I12.9 Hypertensive chronic kidney disease with stage 1 through stage 4 chronic kidney disease, or unspecified chronic kidney disease (principal); N18.3 Chronic kidney disease, stage 3 (moderate); E11.22 Type 2 diabetes mellitus with diabetic chronic kidney disease; N39.0 Urinary tract infection, site not specified; R80.9 Proteinuria, unspecified; N25.81 Secondary hyperparathyroidism of renal origin
CPT/HCPCS: 36415; 80069; 81001; 82043; 82306; 82570; 83970; 85025

== ENCOUNTER → 2020-06-02 | Outpatient (CLI) | payer MEDICARE, MEDICAID ==
--- NOTE | 2020-06-02 16:02 | EKG REPORT ---
SEVERITY:- ABNORMAL ECG - SINUS RHYTHM BORDERLINE INFERIOR Q WAVES ABNORMAL T, CONSIDER ISCHEMIA, LATERAL LEADS : Confirmed by: Anand Munroe MD 02-Jun-2020 16:01:30
== END ==
LOC: OD 13:38
PROVIDERS: ATTEND Physician Assistant
DX: Z51.81 Encounter for therapeutic drug level monitoring (principal); Z79.891 Long term (current) use of opiate analgesic
CPT/HCPCS: 93005; 93010

== ENCOUNTER 2020-08-30 17:00 | Emergency (ER) | payer MEDICARE, MEDICAID ==
--- NOTE | 2020-08-30 17:14 | ER Document Report ---
ED Medical Screen (RME) - General Chief Complaint: S/S of Possible Stroke Stated Complaint: POSSIBLE STROKE Time Seen by Provider: 08/30/20 17:02 Primary Care Provider: HAMZAH MARTE PA-C [Primary Care Provider] - Follow up as needed Mode of Arrival: Ambulatory Information source: Patient TRAVEL OUTSIDE OF THE [place] IN LAST 30 DAYS: No - HPI Patient complains to provider of: Difficulty speaking Notes: 08/30/20 17:12 Patient arrives with complaints of difficulty speaking. She states that since 11:00 she has had several episodes where she cannot find her words and has difficulty speaking. This then resolves spontaneously. She states that currently she does not have symptoms. She denies any numbness, tingling, weakness during these episodes. She does complain of feeling dizzy during these episodes. No chest pain or shortness of breath. Exam: Nontoxic, no distress. Lungs clear and equal throughout. Cranial nerves II through XII are grossly intact. Equal push and pull the upper and lower extremities. No drift. Normal speech. Nonfocal neuro exam at this time. An initial examination was made on the patient as part of the triage process, and it was determined a more comprehensive evaluation was necessary. Initial orders were placed and patient was transferred to another provider in the ED who assumed care and finished evaluation and plan. Case discussed with attending physician in the back. Patient has an NIH stroke score of 0 at this time, she has a nonfocal neurological exam at this time. Patient is not a stroke alert. CT head as well as CTA head and neck was ordered per physician request. - Related Data Allergies/Adverse Reactions: morphine [Morphine] Allergy (Verified 08/30/20 17:08) Plastic tape Allergy (Uncoded 08/30/20 17:08) Past Medical History - Past Medical History Cardiac Medical History: Reports: Hx Coronary Artery Disease, Hx DVT, Hx Hypercholesterolemia, Hx Hypertension Denies: Hx Heart Attack Pulmonary Medical History: Reports: Hx Asthma, Hx Bronchitis, Hx COPD, Hx Pneumonia Denies: Hx Tuberculosis Neurological Medical History: Reports: Hx Cerebrovascular Accident - CVA 2012 L sided-weakness. Denies: Hx Seizures Endocrine Medical History: Reports: Hx Diabetes Mellitus Type 2. Denies: Hx Hypothyroidism Renal/ Medical History: Reports: Hx Kidney Stones. Denies: Hx End Stage Renal Disease, Hx Peritoneal Dialysis Malignancy Medical History: Reports: Hx Ovarian Cancer Musculoskeltal Medical History: Denies Hx Arthritis, Reports Hx Fibromyalgia Psychiatric Medical History: Denies: Hx Depression Past Surgical History: Reports: Hx Cardiac Catheterization, Hx Hysterectomy, Hx Kidney (Renal Surgery), Hx Orthopedic Surgery - carpal tunnel, right medial nerve reconstruction, Hx Tubal Ligation. Denies: Hx Appendectomy, Hx Bowel Surgery, Hx Section, Hx Cholecystectomy, Hx Coronary Artery Bypass Graft, Hx Gastric Bypass Surgery, Hx Herniorrhaphy, Hx Mastectomy, Hx Pacemaker, Hx Tonsillectomy - Immunizations Hx Diphtheria, Pertussis, Tetanus Vaccination: Yes Doctor's Discharge - Discharge Referrals: HAMZAH MARTE PA-C [Primary Care Provider] - Follow up as needed
--- NOTE | 2020-08-30 17:40 | RADIOLOGY REPORT (SQ) ---
EXAM DESCRIPTION: CHEST SINGLE VIEW IMAGES COMPLETED DATE/TIME: 08/30/2020 4:23 pm REASON FOR STUDY: TIA COMPARISON: 07/27/2019 EXAM PARAMETERS: NUMBER OF VIEWS: One view. TECHNIQUE: Single frontal radiographic view of the chest acquired. RADIATION DOSE: NA LIMITATIONS: None. FINDINGS: LUNGS AND PLEURA: Lungs are hyperinflated. No opacities, masses or pneumothorax. No pleu ral effusion. MEDIASTINUM AND HILAR STRUCTURES: No masses. Contour normal. HEART AND VASCULAR STRUCTURES: Heart normal in size. Normal vasculature. BONES: No acute findings. HARDWARE: Right MediPort catheter with tip at the cavoatrial junction. OTHER: No other significant finding. IMPRESSION: No acute cardiopulmonary disease. Hyperinflated lungs which could be seen with obstruct dinesh lung disease. TECHNICAL DOCUMENTATION: JOB ID: [id number] 2010 [employer]- All Rights Reserved Reading location - IP/workstation name: [email or web address]
--- NOTE | 2020-08-30 17:42 | RADIOLOGY REPORT (SQ) ---
EXAM DESCRIPTION: CT HEAD WITHOUT IMAGES COMPLETED DATE/TIME: 08/30/2020 4:20 pm REASON FOR STUDY: TIA, difficulty speaking intermitn since 1100 COMPARISON: None. TECHNIQUE: Axial images acquired through the brain without intravenous contrast. Images reviewed wi th bone, brain and subdural windows. Additional sagittal and coronal reconstructions were generated. Images stored on PACS. All CT scanners at this facility use dose modulation, iterative reconstruction, and/or weight based d osing when appropriate to reduce radiation dose to as low as reasonably achievable (ALARA). [facility]: Dose Right [facility]: CareDose [facility]: Dose Right [facility]: Teradose 4D [facility]: Smart Present RADIATION DOSE: CT Rad equipment meets quality standard of care and radiation dose reduction techniq ues were employed. CTDIvol: 53.2 mGy. DLP: 1044 mGy-cm. mGy. LIMITATIONS: None. FINDINGS: VENTRICLES: Normal size and contour. CEREBRUM: No masses. No hemorrhage. No midline shift. No evidence for acute infarction. Normal gra y/white matter differentiation. No areas of low density in the white matter. CEREBELLUM: No masses. No hemorrhage. No alteration of density. No evidence for acute infarction. EXTRAAXIAL SPACES: No fluid collections. No masses. ORBITS AND GLOBE: No intra- or extraconal masses. Normal contour of globe without masses. CALVARIUM: No fracture. PARANASAL SINUSES: No fluid or mucosal thickening. SOFT TISSUES: No mass or hematoma. OTHER: No other significant finding. IMPRESSION: NO ACUTE INTRACRANIAL IMAGING FINDINGS. EVIDENCE OF ACUTE STROKE: NO. COMMENT: Pertinent positive or negative findings of the imaging study reported as a CRITICAL EXAM t o Dr. Moreno at16:36 on 08/30/2020. Category of Critical Exam: Stroke alert. Quality ID # [id number]: Final reports with documentation of one or more dose reduction techniques (e.g., Au tomated exposure control, adjustment of the mA and/or kV according to patient size, use of iterative reconstruction technique) TECHNICAL DOCUMENTATION: JOB ID: [id number] 2010 [employer]- All Rights Reserved Reading location - IP/workstation name: [email or web address]
[2020-08-30 17:52] LABS: ABSOLUTE BASOPHILS # (AUTO) 0.1 10^3/uL (0.0-0.2); ABSOLUTE EOSINOPHILS # (AUTO) 0.1 10^3/uL (0.0-0.6); ABSOLUTE LYMPHOCYTES (AUTO) 2.3 10^3/uL (0.5-4.7); ABSOLUTE MONOCYTES (AUTO) 0.4 10^3/uL (0.1-1.4); ABSOLUTE NEUT (AUTO) 3.2 10^3/uL (1.7-8.2); BASOPHILS % (AUTO) 0.9 % (0-2); EOSINOPHILS % (AUTO) 1.7 % (0-6); HEMATOCRIT 40.6 % (36.0-47.0); HEMOGLOBIN 13.8 g/dL (12.0-15.5); LYMPHOCYTES % (AUTO) 38.3 % (13-45); MEAN CORPUSCULAR HEMOGLOBIN 33.1 pg (27.0-33.4); MEAN CORPUSCULAR HGB CONC 33.9 g/dL (32.0-36.0); MEAN CORPUSCULAR VOLUME 97 fl (80-97); MONOCYTES % (AUTO) 6.7 % (3-13); PLATELET COUNT 178 10^3/uL (150-450); RED BLOOD COUNT 4.16 10^6/uL (3.72-5.28); RED CELL DISTRIBUTION WIDTH 13.7 % (11.5-14.0); SEGMENTED NEUTROPHILS % (AUTO) 52.4 % (42-78); TOTAL CELLS COUNTED % (AUTO) 100 %; WHITE BLOOD COUNT 6.1 10^3/uL (4.0-10.5)
[2020-08-30 17:55] LABS: INTERNATIONAL RATION (INR) 0.82; PROTHROMBIN TIME 11.5 SEC (11.4-15.4)
[2020-08-30 18:05] LABS: PARTIAL THROMBOPLASTIN TIME < 20.0 SEC (23.5-35.8)
[2020-08-30 18:15] LABS: ALBUMIN 3.5 g/dL (3.5-5.0); ALKALINE PHOSPHATASE 101 U/L (38-126); ASPARTATE AMINO TRANSFERASE 18 U/L (14-36); BILIRUBIN,DIRECT 0.3 mg/dL (0.0-0.4); BILIRUBIN,TOTAL 0.4 mg/dL (0.2-1.3); BLOOD UREA NITROGEN 24 mg/dL (7-20); CALCIUM 10.1 mg/dL (8.4-10.2); CARBON DIOXIDE 32 mmol/L (22-30); CHLORIDE 104 mmol/L (98-107); GLUCOSE 88 mg/dL (75-110); POTASSIUM 5.1 mmol/L (3.6-5.0); TOTAL PROTEIN 6.1 g/dL (6.3-8.2)
[2020-08-30 18:16] LABS: ANION GAP 4 (5-19)
--- OUTSIDE RECORDS SUMMARY | 2020-08-30 18:48 | XMS REPORT ---
:1955 [facility] [address] [place] [id number] Care Team Providers Name Role Phone KAYLA Primary Care Physician Unavailable Allergies, Adverse Reactions, Alerts Allergy Allergy Status Severity Reaction(s) Onset Inactive Treating C omments Name Type Date Date Clinician Adhesive Allergy to Active Severe Other Tape substance Mastisol Allergy to Active Moderate Other Adhesive substance to severe Morphine Allergy to Active Mild Itching substance Medications Ordered Filled Start Stop Current Ordering Indication Dosage Frequency Signature Comments Components Medication Medication Date Date Medication? Clinician (SIG) Name Name albuterol No albuterol sulfate 2.5 sulfate mg/3 mL 2.5 mg/3 (0.083 %) mL (0.083 solution %) for solution nebulizatio for n USE ONE nebulizati VIAL VIA on USE ONE NEBULIZER VIAL VIA FOUR TIMES NEBULIZER DAILY FOR FOUR TIMES BREATHING DAILY FOR BREATHING amlodipine No amlodipine 10 mg 10 mg tablet TAKE tablet ONE TABLET TAKE ONE BY MOUTH TABLET BY EVERY DAY MOUTH EVERY DAY benzonatate No benzonatat 200 mg e 200 mg capsule capsule TAKE 1 TAKE 1 CAPSULE BY CAPSULE BY MOUTH THREE MOUTH TIMES DAILY THREE NEEDED TIMES FOR COUGH DAILY NEEDED FOR COUGH betamethaso No betamethas ne valerate one 0.1 % valerate lotion 0.1 % lotion Flucelvax No Flucelvax Quad Quad (PF) 60 mcg (PF) 60 (15 mcg x mcg (15 4)/0.5 mL mcg x IM syringe 4)/0.5 mL IM syringe furosemide No furosemide 40 mg 40 mg tablet TAKE tablet ONE TABLET TAKE ONE BY MOUTH TABLET BY TWICE DAILY MOUTH FOR FLUID TWICE RETENTION DAILY FOR FLUID RETENTION gabapentin No gabapentin 300 mg 300 mg capsule capsule TAKE TWO TAKE TWO CAPSULES BY CAPSULES MOUTH TWICE BY MOUTH DAILY for TWICE neuropathy DAILY for neuropathy glimepiride No glimepirid 4 mg tablet e 4 mg tablet glipizide No glipizide ER 5 mg ER 5 mg tablet, tablet, extended extended release 24 release 24 hr TAKE ONE hr TAKE TABLET BY ONE TABLET MOUTH EVERY BY MOUTH DAY FOR EVERY DAY DIABETES FOR DIABETES ibuprofen No ibuprofen 800 mg 800 mg tablet TAKE tablet ONE TABLET TAKE ONE BY MOUTH TABLET BY TWICE DAILY MOUTH TWICE DAILY ipratropium No ipratropiu 0.5 m 0.5 mg-albutero mg-albuter l 3 mg (2.5 ol 3 mg mg base)/3 (2.5 mg mL base)/3 mL nebulizatio nebulizati n soln use on soln 1 vial in use 1 vial nebulizer in EVERY 6 nebulizer HOURS EVERY 6 NEEDED FOR HOURS BREATHING NEEDED FOR BREATHING isosorbide No isosorbide mononitrate mononitrat ER 30 mg e ER 30 mg tablet,exte tablet,ext nded ended release 24 release 24 hr TAKE TWO hr TAKE TABLETS BY TWO MOUTH EVERY TABLETS BY MORNING MOUTH EVERY MORNING levofloxaci No levofloxac n 500 mg in 500 mg tablet tablet lidocaine-p No lidocaine- rilocaine prilocaine 2.5 %-2.5 % 2.5 %-2.5 topical % topical cream APPLY cream 2-3 GRAMS APPLY 2-3 (1 GRAM=1 GRAMS (1 INCH) TO GRAM=1 AFFECTED INCH) TO AREA 4 AFFECTED TIMES DAILY AREA 4 TIMES DAILY metformin No metformin 500 mg 500 mg tablet tablet methadone 5 No methadone mg tablet 5 mg TAKE 1 TAB tablet PO Q 12 TAKE 1 TAB HR30 DAY PO Q 12 SUPPLYDNF HR30 DAY U 08/10/20 SUPPLYDN FU 08/10/20 metoprolol No metoprolol succinate succinate ER 25 mg ER 25 mg tablet,exte tablet,ext nded ended release 24 release 24 hr TAKE hr TAKE ONE-HALF ONE-HALF TABLET BY TABLET BY MOUTH DAILY MOUTH DAILY metoprolol No metoprolol tartrate 25 tartrate mg tablet 25 mg TAKE ONE tablet TABLET BY TAKE ONE MOUTH TWICE TABLET BY DAILY MOUTH TWICE DAILY Narcan 4 No Narcan 4 mg/actuatio mg/actuati n nasal on nasal spray spray nitroglycer No nitroglyce in 0.4 mg rin 0.4 mg sublingual sublingual tablet tablet DISSOLVE 1 DISSOLVE 1 TABLET TABLET UNDER UNDER TONGUE UP TONGUE UP TO EVERY 5 TO EVERY 5 MINUTES MINUTES NEEDED FOR NEEDED FOR CHEST PAIN CHEST PAIN MAX 3 DOSES MAX 3 THEN CALL DOSES THEN DOCTOR/HILARIO CALL JESSICA DOCTOR/[facility] RG[facility] omeprazole No omeprazole 40 mg 40 mg capsule,del capsule,de ayed layed release release TAKE 1 TAKE 1 CAPSULE BY CAPSULE BY MOUTH EVERY MOUTH DAY EVERY DAY oxycodone No oxycodone 15 mg 15 mg tablet TAKE tablet 1 TAB PO Q TAKE 1 TAB 4-6 HR PRN PO Q 4-6 PAIN MAX HR PRN 3/DAY30 PAIN MAX DAY 3/DAY30 SUPPLYDNF DAY U 08/10/20 SUPPLYDN FU 08/10/20 paricalcito No paricalcit l 1 mcg ol 1 mcg capsule capsule TAKE 1 TAKE 1 CAPSULE BY CAPSULE BY MOUTH EVERY MOUTH DAY EVERY DAY peg 3350 No peg 3350 240 240 gram-electr gram-elect olytes rolytes 22.72 22.72 gram-6.72 gram-6.72 g-5.84 g g-5.84 g powdr for powdr for soln soln peg No peg 3350-electr 3350-elect olytes 236 rolytes gram-22.74 236 gram-6.74 gram-22.74 gram-5.86 gram-6.74 gram gram-5.86 solution gram solution Pneumovax-2 No Pneumovax- 3 25 23 25 mcg/0.5 mL mcg/0.5 mL injection injection solution solution potassium No potassium chloride ER chloride 10 mEq ER 10 mEq capsule,ext capsule,ex ended tended release release pramipexole No pramipexol 0.5 mg e 0.5 mg tablet TAKE tablet ONE TABLET TAKE ONE BY MOUTH TABLET BY EVERY MOUTH EVENING EVERY (TWO hours EVENING BEFORE (TWO hours sleep) BEFORE sleep) prochlorper No prochlorpe azine razine maleate 10 maleate 10 mg tablet mg tablet ranolazine No ranolazine ER 500 mg ER 500 mg tablet,exte tablet,ext nded ended release,12 release,12 hr TAKE ONE hr TAKE TABLET BY ONE TABLET MOUTH TWICE BY MOUTH DAILY TWICE DAILY Symbicort No Symbicort 160 mcg-4.5 160 mcg/actuati mcg-4.5 on HFA mcg/actuat aerosol ion HFA inhaler aerosol Shake well inhaler & Inhale 2 Shake well puffs twice & Inhale 2 a day. puffs Rinse mouth twice a after each day. Rinse use mouth &Discard 3 after each months use after &Discard 3 removing months from foil after pouch removing from foil pouch Trelegy No Trelegy Ellipta 100 Ellipta mcg-62.5 100 mcg-25 mcg mcg-62.5 powder for mcg-25 mcg inhalation powder for SLIDE COVER inhalation TO SIDE & SLIDE INHALE 1 COVER TO DOSE ONCE SIDE & DAILY RINSE INHALE 1 MOUTH AFTER DOSE ONCE USE & DAILY DISCARD 6 RINSE WEEKS AFTER MOUTH REMOVING AFTER USE FROM FOIL & DISCARD PACK 6 WEEKS AFTER REMOVING FROM FOIL PACK triamcinolo No triamcinol ne one acetonide acetonide 0.1 % 0.1 % topical topical ointment ointment Vascepa 1 No Vascepa 1 gram gram capsule capsule Ventolin No Ventolin HFA 90 HFA 90 mcg/actuati mcg/actuat on aerosol ion inhaler aerosol INHALE TWO inhaler PUFFS BY INHALE TWO MOUTH EVERY PUFFS BY 6 HOURS MOUTH NEEDED EVERY 6 HOURS NEEDED zolpidem 10 No zolpidem mg tablet 10 mg TAKE 1 tablet TABLET BY TAKE 1 MOUTH EVERY TABLET BY DAY FOR MOUTH SLEEP EVERY DAY FOR SLEEP albuterol No albuterol sulfate HFA sulfate 90 HFA 90 mcg/actuati mcg/actuat on aerosol ion inhaler aerosol INHALE 2 inhaler PUFFS BY INHALE 2 MOUTH EVERY PUFFS BY 6 HOURS MOUTH NEEDED EVERY 6 HOURS NEEDED Chantix 1 No Chantix 1 mg tablet mg tablet TAKE ONE TAKE ONE TABLET BY TABLET BY MOUTH TWICE MOUTH DAILY TWICE DAILY diclofenac No diclofenac 1 % topical 1 % gel Apply topical TWO grams gel Apply To affected TWO grams area(s) To FOUR TIMES affected DAILY area(s) FOUR TIMES DAILY lisinopril No lisinopril 2.5 mg 2.5 mg tablet tablet Symbicort No Symbicort 160 mcg-4.5 160 mcg/actuati mcg-4.5 on HFA mcg/actuat aerosol ion HFA inhaler aerosol Shake well inhaler & Inhale 2 Shake well puffs twice & Inhale 2 a day. puffs Rinse mouth twice a after each day. Rinse use mouth &Discard 3 after each months use after &Discard 3 removing months from foil after pouch removing from foil pouch amlodipine No amlodipine 5 mg tablet 5 mg tablet lorazepam No lorazepam 0.5 mg 0.5 mg tablet tablet Problems Condition Condition Condition Status Onset Resolution Last Treatin g Comments Name Details Category Date Date Treatment Clinician Date Idiopathic Idiopathic Problem Active peripheral Peripheral 6-29 neuropathy Neuropathy 00:00: 00 Cerebral Cerebral Problem Active infarction Infarction 6-29 00:00: 00 Malignant Malignant Problem Active neoplastic Neoplastic 8-07 disease Disease 00:00: 00 Long-term Long-term Problem Active 2012-08 drug Drug 2-10 therapy Therapy 00:00: 00 Degeneratio Degeneratio Problem Active n of n of 8-23 cervical Cervical 00:00: interverteb Interverteb 00 ral disc ral Disc Type 2 Type 2 Problem Active diabetes Diabetes 4-16 mellitus Mellitus 00:00: without without 00 complicatio Complicatio n n Peripheral Peripheral Problem Active vascular Vascular 4-16 disease Disease 00:00: 00 Pulmonary Pulmonary Problem Active emphysema Emphysema 4-16 00:00: 00 Asthma Asthma Problem Active 4-16 00:00: 00 Urinary Urinary Problem Active tract Tract 4-16 infectious Infectious 00:00: disease Disease 00 Degeneratio Degeneratio Problem Active n of n of 4-16 interverteb Interverteb 00:00: ral disc ral Disc 00 Low back Low Back Problem Active pain Pain 4-16 00:00: 00 History of History of Problem Active cardiovascu Cardiovascu 4-16 lar disease lar Disease 00:00: 00 Family Family Problem Active history of History of 4-16 diabetes Diabetes 00:00: mellitus Mellitus 00 Procedures Procedure Date / Time Performed Performing Clinician Devic e XR, shoulder 2020-06-05 00:00:00 XR, hand 2020-05-22 00:00:00 electrocardiogram 2020-05-09 00:00:00 XR, cervical spine 2020-02-09 00:00:00 electrocardiogram 2019-11-11 00:00:00 Trigger Finger Release (Surg) 2016-10-21 00:00:00 Colonoscopy 2015-08-11 00:00:00 Hysterectomy 2014-08-11 00:00:00 Elbow Surgery 2000-08-11 00:00:00 Wrist Surgery 2000-08-11 00:00:00 Carpal Tunnel Release 1999-08-11 00:00:00 Results This patient has no known results. Assessments Condition Name Status Diagnosis Date Treating Clinici an Pain of right shoulder joint Active 2020-06-05 10:48:39 Long-term drug therapy Active 2020-06-06 08:33:30 Lumbosacral spondylosis without Active 2020-06-06 08:33 :30 myelopathy Cervical spondylosis without myelopathy Active 08:33:30 Hand pain Active 2020-05-22 13:25:29 Shoulder pain Active 2020-05-23 08:24:37 Osteoarthrosis of the carpometacarpal Active 2020-05-23 08:24:44 joint of the thumb Diabetes mellitus Active 2020-05-23 08:24:49 Long-term drug therapy Active 2020-05-23 08:24:54 Long-term drug therapy Active 2020-05-09 12:44:36 Lumbosacral spondylosis without Active 2020-05-09 15:59 :09 myelopathy Cervical spondylosis without myelopathy Active 08:41:51 Long-term drug therapy Active 2020-05-05 13:52:26 Neck pain Active 2020-02-09 11:18:15 Cervical spondylosis without myelopathy Active 10:12:29 Lumbosacral spondylosis without Active 2020-02-09 14:53 :28 myelopathy Trigger thumb of right hand Active 2020-02-11 10:13:19 Long-term drug therapy Active 2020-02-11 10:13:42 Long-term drug therapy Active 2019-11-11 09:47:10 Lumbosacral spondylosis without Active 2019-11-11 10:59 :55 myelopathy Trigger finger Active 2019-11-11 11:02:14 Lumbosacral spondylosis without Active 2019-08-13 13:33 :08 myelopathy Long-term drug therapy Active 2019-08-14 13:16:40 Degeneration of lumbar intervertebral Active 2019-08-14 13:16:40 disc Lumbar radiculopathy Active 2019-08-14 13:16:40 Inflammation of sacroiliac joint Active 2019-08-14 13:1 6:40 Encounters Start End Encounter Admission Attending Care Care Encounter Date/Time Date/Time Type Type Clinicians Facility Department ID 2020-06-05 2020-06-05 Kristy Olson [facility] [id number] 00:00:00 00:00:00 edward Olmstead P.A. , P.A. [id number] PA-C: [address] [place] [address], Ph. 2020-05-22 2020-05-22 Chase Olson [facility] [id number] 00:00:00 00:00:00 MD Madeline: Roberto leon , P.A. [id number] [place] [id number], Ph. 2020-05-09 2020-05-09 Kritsy Olson [facility] [id number] 00:00:00 00:00:00 edward Olmstead P.A. , P.A. [id number] PA-C: [address] [place] [phone], Ph. 2020-05-08 2020-05-08 Kristy Olson [facility] [id number] 00:00:00 00:00:00 edward Olmstead P.A. , P.A. [id number] PA-C: [address] [place] [id number], Ph. 2020-02-09 2020-02-09 Kristy Olson [facility] [id number] 00:00:00 00:00:00 edward Olmstead P.A. , P.A. [id number] PA-C: [address] [place] [address], Ph. 2019-11-11 2019-11-11 Kristy Olson [facility] [id number] 00:00:00 00:00:00 edward Olmstead P.A. , P.A. [id number] PA-C: [address] [place] [phone], Ph. 2019-08-13 2019-08-13 [id number]:00:00 edward Olmstead, DariusA. , P.A. [id number] MALOU: [address] [place] [address], Ph. Immunizations Ordered Immunization Filled Immunization Date Status Commen ts Refusal Reason Name Name influenza, 2018-05-11 Completed injectable, 00:00:00 quadrivalent influenza, 2017-06-13 Completed unspecified 00:00:00 formulation Plan of Treatment Planned Activity Planned Date Details Comments Future Appointment 2020-08-31 10:40:00 Kristy Olmstead [address] [place] [address] Social History Smoking Status Start Date Stop Date Light Tobacco Smoker Vital Signs Vital Name Observation Time Observation Value Comments Height 2020-06-05 00:00:00 66 [in_i] BMI (Body Mass Index) 2020-06-05 00:00:00 33.9 kg/m2 Body Weight 2020-06-05 00:00:00 210 [lb_av] BMI (Body Mass Index) 2020-05-22 00:00:00 33.9 kg/m2 Body Weight 2020-05-22 00:00:00 210 [lb_av] Height 2020-05-22 00:00:00 66 [in_i] Height 2020-05-09 00:00:00 66 [in_i] BMI (Body Mass Index) 2020-05-09 00:00:00 36.6 kg/m2 Body Weight 2020-05-09 00:00:00 227 [lb_av] Height 2020-02-09 00:00:00 66 [in_i] BMI (Body Mass Index) 2020-02-09 00:00:00 33.9 kg/m2 Body Weight 2020-02-09 00:00:00 210 [lb_av] Height 2019-11-11 00:00:00 66 [in_i] BMI (Body Mass Index) 2019-11-11 00:00:00 33.2 kg/m2 Body Weight 2019-11-11 00:00:00 206 [lb_av] Height 2019-08-13 00:00:00 66 [in_i] BMI (Body Mass Index) 2019-08-13 00:00:00 33.2 kg/m2 Body Weight 2019-08-13 00:00:00 206 [lb_av] Hospital Discharge Instructions 1. Neck pain XR, cervical spine 2. Cervical spondylosis without myelopathy 3. Lumbosacral spondylosis without myelopathy oxycodone 15 mg tablet oxycodone 15 mg tablet oxycodone 15 mg tablet methadone 5 mg tablet methadone 5 mg tablet methadone 5 mg tablet 4. Trigger thumb of right hand 5. Long-term drug therapy Discussion Note: None recorded. Patient educational handouts: No information available.1. Long-term drug therapy toxicology screen, urine - Screening and confirmatory toxicology labs ordered {xx} To identify undisclosed substances such as,alcohol, unsanctioned prescription medication{xx} To reinforce therapeutic compliance to the patient and to identify the absence of prescribed medication and the potential for abuse, misuse and diversion {xx} To identify specific substances and their metabolites that are inadequately detected in presumptive UDT screen. Screening with reflex confirmation and Confirmation of Tramadol, Fentanyl, Tapentadol, Herion Metabolites, Opioids and Opiate Analogs, Propoxyphene, Skeletal Muscle relaxers, Antidepressantes, Sedatives, Alkaloids NOS, Cannaboids Synthetic, Stimulants Synthetic, Methyphenidate, Gabapentin Nonblood, Pregabalin, Antidepressants Tr icyclic electrocardiogram 2. Lumbosacral spondylosis without myelopathy methadone 5 mg tablet methadone 5 mg tablet methadone 5 mg tablet oxycodone 15 mg tablet oxycodone 15 mg tablet oxycodone 15 mg tablet 3. Trigger finger Voltaren 1 % topical gel Discussion Note: None recorded. Patient educational handouts: No information available.1. Lumbosacral spondylosis without myelopathy low back arthritis: exercises methadone 5 mg tablet methadone 5 mg tablet methadone 5 mg tablet oxycodone 15 mg tablet oxycodone 15mg tablet oxycodone 15 mg tablet 2. Long-term drug therapy 3. Degeneration of lumbar intervertebral disc 4. Lumbar radiculopathy 5. Inflammation of sacroiliac joint Discussion Note: None recorded.
--- NOTE | 2020-08-30 19:17 | EKG REPORT ---
SEVERITY:- ABNORMAL ECG - SINUS RHYTHM ABNORMAL T, CONSIDER ISCHEMIA, LATERAL LEADS PROLONGED QT INTERVAL : Confirmed by: Enrico Warner MD 30-Aug-2020 19:15:49
--- NOTE | 2020-08-30 20:31 | ER Document Report ---
ED General - General Chief Complaint: S/S of Possible Stroke Stated Complaint: POSSIBLE STROKE Time Seen by Provider: 08/30/20 17:02 Primary Care Provider: HAMZAH MARTE PA-C [NO LOCAL MD] - Follow up as needed Mode of Arrival: Ambulatory TRAVEL OUTSIDE OF THE [place] IN LAST 30 DAYS: No - HPI Notes: 64-year-old female presents with episodes of difficulty speaking. Patient states that for the past 2-2.5 months she has had episodes where she will have difficulty speaking, described as if she is jumbling her words. States that her thoughts are clear, however she hears what she is saying and it does not make sense. These episodes typically last for about 15 minutes. She will occasionally have associated right-sided lip numbness and tingling. She states that she came to the emergency department today because she had 3-4 episodes, therefore thought enough was enough and came for evaluation. She currently denies symptoms. She denies weakness or numbness in her extremities. She does report a history of a stroke about 8 years ago, states that she received TPA. States that she is not currently on blood thinners, she has been on and off of blood thinners several times, was taken off about 1 year ago. She also reports that she has a 5 cm AAA, she follows up with [facility] every 6 months. - Related Data Allergies/Adverse Reactions: morphine [Morphine] Allergy (Verified 08/30/20 17:08) Plastic tape Allergy (Uncoded 08/30/20 17:08) Home Medications: trelegy. methadone. oxycodone. albuterol. amlodipine. furosemide. gabapentin. glipizide. isodsorbide. omeprazole. paricalcitol. ranolazine. zolpidem. trelegy. lisinopril Past Medical History - General Information source: Patient - Social History Smoking Status: Current Every Day Smoker Chew tobacco use (# tins/day): No Frequency of alcohol use: None Drug Abuse: None Family History: Reviewed & Not Pertinent Patient has homicidal ideation: No - Past Medical History Cardiac Medical History: Reports: Hx Coronary Artery Disease, Hx DVT, Hx Hypercholesterolemia, Hx Hypertension Denies: Hx Heart Attack Pulmonary Medical History: Reports: Hx Asthma, Hx Bronchitis, Hx COPD, Hx Pneumonia Denies: Hx Tuberculosis Neurological Medical History: Reports: Hx Cerebrovascular Accident - CVA 2012 L sided-weakness. Denies: Hx Seizures Endocrine Medical History: Reports: Hx Diabetes Mellitus Type 2. Denies: Hx Hypothyroidism Renal/ Medical History: Reports: Hx Kidney Stones. Denies: Hx End Stage Renal Disease, Hx Peritoneal Dialysis Malignancy Medical History: Reports: Hx Ovarian Cancer Musculoskeletal Medical History: Denies Hx Arthritis, Reports Hx Fibromyalgia Psychiatric Medical History: Denies: Hx Depression Past Surgical History: Reports: Hx Cardiac Catheterization, Hx Hysterectomy, Hx Kidney (Renal Surgery), Hx Orthopedic Surgery - carpal tunnel, right medial nerve reconstruction, Hx Tubal Ligation. Denies: Hx Appendectomy, Hx Bowel Surgery, Hx Section, Hx Cholecystectomy, Hx Coronary Artery Bypass Graft, Hx Gastric Bypass Surgery, Hx Herniorrhaphy, Hx Mastectomy, Hx Pacemaker, Hx Tonsillectomy - Immunizations Hx Diphtheria, Pertussis, Tetanus Vaccination: Yes Hx Pneumococcal Vaccination: 03/25/14 Review of Systems - Review of Systems Constitutional: denies: Fever EENT: No symptoms reported Cardiovascular: denies: Chest pain Respiratory: denies: Short of breath Gastrointestinal: denies: Abdominal pain Genitourinary: No symptoms reported Female Genitourinary: No symptoms reported Musculoskeletal: No symptoms reported Skin: No symptoms reported Hematologic/Lymphatic: No symptoms reported Neurological/Psychological: denies: Weakness, Headaches, Numbness Physical Exam - Vital signs Vitals: Temp 97.5 F 08/30/20 17:08 - General General appearance: Appears well, Alert In distress: None - HEENT Head: Normocephalic, Atraumatic Extraocular movements intact: Yes Pupils: PERRL - Respiratory Breath sounds: Normal - Cardiovascular Rhythm: Regular Heart sounds: Normal auscultation - Abdominal Inspection: Obese Tenderness: Nontender - Extremities General upper extremity: Normal ROM General lower extremity: Normal ROM. No: Edema - Neurological Neuro grossly intact: Yes Cognition: Normal Orientation: AAOx4 Notes: Face is symmetric with intact sensation. Speech is clear, there is no discernible dysarthria or aphasia. Cranial nerves II through XII are grossly intact. Strength is 5/5 in the upper extremities, no drift, sensation intact. Strength is 5/5 in the lower extremities, sensation intact. Coordination is intact. NIHSS 0. - Psychological Associated symptoms: Normal affect - Skin Skin Temperature: Warm Course - Re-evaluation Re-evalutation: 64-year-old female presents with multiple episodes today of word finding difficulty, possible expressive aphasia based on her description. These episodes have been occurring for the past 2-2.5 months. Patient has a previous history of stroke, she also has vascular disease. On exam she is afebrile and hemodynamically stable. She currently has no focal neuro deficits. NIHSS 0. Prior to evaluation she had a head CT, head CT and neck CT performed, which are negative for LVO or bleed, she does have some atherosclerosis. Given her reported symptoms, concerned that she possibly may be suffering from TIAs, I have ordered an MRI to further evaluate for acute ischemia. Possible she is having some sort of vasospastic event. 08/30/20 22:44 Reviewed MRI, there does appear to be a signal abnormality L side. Pending fin al read from radiologist. Aspirin ordered. 08/30/20 23:26 MRI has resulted. The area that I was looking at is an old area of infarction per radiology. There is no acute ischemia or infarction. 08/30/20 23:34 Updated pt on MRI results. Remains symptom free. Have ordered IVF to help flush dye given her CKD Patient was encouraged to have very close up with your primary care doctor, I discussed that her possible referral to neurology for further evaluation. Return precautions given, stable at time of discharge. - Vital Signs Vital signs: Temp Pulse Resp BP Pulse Ox 97.5 F 18 108/61 99 08/30/20 17:08 08/31/20 00:26 08/31/20 00:26 08/30/20 22:26 - Laboratory Results Result Diagrams: 08/30/20 17:39 08/30/20 17:39 Laboratory Results Interpreted: 08/30/20 08/30/20 17:39 17:39 APTT < 20.0 L* Potassium 5.1 H Carbon Dioxide 32 H Anion Gap 4 L BUN 24 H Creatinine 1.60 H Est GFR ( Amer) 39 L Est GFR (MDRD) Non-Af 32 L Total Protein 6.1 L Critical Laboratory Results Reviewed: No Critical Results - Radiology Results Critical Radiology Results Reviewed: No Critical Results - EKG Interpretation by Me Additional EKG results interpreted by me: EKG is interpreted by me. Sinus rhythm, rate 67. Narrow QRS, QTC prolonged. T wave inversions I and aVL, seen on previous EKG. No STEMI. Discharge - Discharge Clinical Impression: Word finding difficulty Disposition: HOME, SELF-CARE Additional Instructions: Please have very close follow-up with your primary care doctor. Please ask for a referral to neurology to see if there is further work-up that can be done for these episodes of word finding difficulty. Please return to the emergency department immediately for any concerning or worsening symptoms. Referrals: HAMZAH MARTE PA-C [NO LOCAL MD] - Follow up as needed
--- NOTE | 2020-08-30 21:04 | RADIOLOGY REPORT (SQ) ---
EXAM DESCRIPTION: CT HEAD ANGIOGRAPHY WITHOUT THEN WITH IV CONTRAST, CT NECK ANGIOGRAPHY WITHOUT THEN WITH IV CONTRAST COMPLETED DATE/TME: 08/30/2020 19:50 CLINICAL HISTORY: 64 years, Female, TIA, difficulty speaking intermitn since 1100 COMPARISON: Head CT from earlier today TECHNIQUE: Postcontrast angiographic imaging with 3-D postprocessing imaging and multiplanar reformatted images of the head and neck was performed utilizing 100 mL Omnipaque 300 intravenously. NASCET criteria utilized. Images stored on PACS. All CT scanners at this facility use dose modulation, iterative reconstruction, and/or weight based dosing when appropriate to reduce radiation dose to as low as reasonably achievable (ALARA). [facility]: Dose Right [facility]: CareDose [facility]: Dose Right [facility]: Teradose 4D [facility]: [place] LIMITATIONS: None. CTA HEAD: There is moderate plaque formation within the intracranial internal carotid arteries from the cavernous segment through the supraclinoid segment bilaterally. No definite significant arterial stenosis of 50% or greater is seen. There is no major vascular branch occlusion or evidence of cerebral aneurysm. There is normal enhancement of the dural venous sinuses. CTA NECK: Normal-appearing aortic arch anatomy is noted. There are diffuse arterial plaques within the visualized chest and neck. The origins of the great vessels are widely patent. There is approximately 75% focal stenosis of the left proximal subclavian artery approximately 3 cm from the origin. There is approximately 40% stenosis of the left carotid bulb. No stenosis of 50% or greater is seen within the neck otherwise. The left vertebral artery appears diffusely small in caliber as a developmental variant (right vertebral arterial dominance). There is incidental heterogeneous enlargement of the thyroid gland with multiple nodules measuring up to 1.4 cm and not emergent sonographic follow-up is recommended. Visualized lung apices are clear. Right Mediport is partially visualized. There is mild degenerative disease about the lower cervical spine. Incidental dental caries are noted. IMPRESSION: 1. Diffuse atheromatous plaques are identified within the visualized chest, neck, and intracranial internal carotid arteries. There is approximate 75% stenosis of the left proximal subclavian artery. No significant stenosis of 50% or greater is otherwise identified. There is no major intracranial vascular branch occlusion identified. 2. Incidental heterogeneously enlarged, multinodular thyroid gland. Nonemergent sonographic follow-up is recommended. 3. Incidental dental caries. TECHNICAL DOCUMENTATION: Quality ID # [id number]: Final reports with documentation of one or more dose reduction techniques (e.g., Automated exposure control, adjustment of the mA and/or kV according to patient size, use of iterative reconstruction technique) copyright 2011 [employer]- All Rights Reserved
[2020-08-30] MEDS ORDERED: ASPIRIN 325 MG TABLET PO ONE (22:34)
[2020-08-30] MEDS ORDERED: NORMAL SALINE 500 ML IV ONE (22:45)
--- NOTE | 2020-08-30 23:00 | RADIOLOGY REPORT (SQ) ---
EXAM DESCRIPTION: MRI HEAD WITHOUT CLINICAL HISTORY: 64 years Female; TIA episodes dizziness and headache. Remote history of ovarian cancer. Difficulty speaking. TECHNIQUE: Routine noncontrast MRI brain protocol COMPARISON: None. FINDINGS: Diffusion: Several small punctate areas of persistent diffusion are identified in the deep white matter adjacent to the posterior horn of the left lateral ventricle and along the subcortical white matter of the left posterior parietal lobe. However, these areas are not clearly seen on the ADC mapping and demonstrate increased signal on FLAIR imaging suggesting T2 shine through. No definitive areas of acute ischemia or infarction. Brain: There is diffuse global volume loss with extensive white matter changes seen throughout the periventricular white matter. There is an old infarct in the subcortical white matter of the left posterior frontal lobe. Findings are suggestive of diffuse, small vessel ischemic disease. No definitive mass. No midline shift. No abnormal extra-axial fluid collections. Ventricles and cisterns are patent. The volume loss and degree of white matter changes are artery proportion for this patient's age. No hemosiderin deposition. Skull: Calvarial marrow is normal. Orbits and paranasal sinuses: Paranasal sinuses and mastoid air cells are clear. Visualized portions of the orbits are normal. Vessels: Normal flow-voids are seen in the major intracranial arteries. IMPRESSION: 1. No definitive acute ischemia or infarction. 2. Local volume loss with extensive white matter changes consistent with small vessel ischemic disease. This is out of proportion for this patient's age. 3. 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
[2020-08-31 00:50] VITALS: BP 108/61
== END 2020-08-31 00:52 | disposition home or self-care (01) ==
LOC: ER 17:00
DX: R29.818 Other symptoms and signs involving the nervous system (principal); I65.29 Occlusion and stenosis of unspecified carotid artery; I70.8 Atherosclerosis of other arteries; R20.0 Anesthesia of skin; R20.2 Paresthesia of skin; I12.9 Hypertensive chronic kidney disease with stage 1 through stage 4 chronic kidney disease, or unspecified chronic kidney disease; E11.22 Type 2 diabetes mellitus with diabetic chronic kidney disease; N18.9 Chronic kidney disease, unspecified; K02.9 Dental caries, unspecified; E04.2 Nontoxic multinodular goiter; I25.10 Atherosclerotic heart disease of native coronary artery without angina pectoris; J44.9 Chronic obstructive pulmonary disease, unspecified; F17.200 Nicotine dependence, unspecified, uncomplicated; M79.7 Fibromyalgia; Z86.73 Personal history of transient ischemic attack (TIA), and cerebral infarction without residual deficits; Z79.899 Other long term (current) drug therapy; Z79.891 Long term (current) use of opiate analgesic; Z79.51 Long term (current) use of inhaled steroids; Z79.84 Long term (current) use of oral hypoglycemic drugs; Z88.6 Allergy status to analgesic agent; Z88.5 Allergy status to narcotic agent; Z91.048 Other nonmedicinal substance allergy status
CPT/HCPCS: 93005; 99285; 96360; 36415; 83735; 85025; 85610; 85730; 80053; 84484; 70551; 71045; 70450; 70496; 70498; 93010; A9270; J7040